=== PATIENT | male | born 1935 | race Caucasian/White ===

== ENCOUNTER 2017-04-05 16:18 | Outpatient (CLI) | payer MEDICARE, OTHER ==
--- NOTE | 2017-04-06 15:52 | MRI Report ---
EXAMS: MRI BRAIN WITHOUT CONTRAST. MRA BRAIN WITHOUT CONTRAST. EXAM DATE: 04/05/2017 04:45 PM. CLINICAL HISTORY: 81-year-old lesion transient visual loss of the left thigh as well as paresthesias of the skin. Evaluate for intracranial pathology. COMPARISON: None. TECHNIQUE: MRI: Multiplanar, multisequence T1-weighted and fluid-sensitive MRI sequences of the brain were performed. Sequences optimized for routine evaluation. Other: None. Post-processing: None. IV C ontrast: None. MRA: Multiplanar, multisequence T1-weighted and fluid-sensitive MRA sequences of the brain were perfo rmed. Other: None. Post-processing: Multiplanar 3D MIP reconstructions. IV Contrast: None. FINDINGS: MRI: Brain Volume: Normal for age. Parenchyma/Dura: No acute parenchymal hemorrhage, mass, or midline shift. [id number] bilateral areas of T2/FLAIR signal hyperintensity seen. There is pulsation artifact on FLAIR sequence seen with in the FLAIR sequence involving the right frontal lobe (series 701, images 17 through 21). There is a re curvilinear area of T2 high signal hyperintensity within the left mid cranial fossa and right infe rior frontal lobe are artifactual. There are no true areas of restricted diffusion seen to suggest ac [place] infarct. No areas of prior hemorrhage. Ventricles/Cisterns: No hydrocephalus. No abnormal extra-axial fluid collection or hemorrhage. Cister ns are patent. Changes of bilateral lens replacement. Minimal mucosal thickening of the maxillary sin uses with mild to moderate mucosal thickening of the ethmoid air cells. Mastoid air cells and middle ear cavities are clear. Orbits: Symmetric and unremarkable. Sella Turcica: The pituitary gland, cavernous sinuses, suprasellar cistern and optic chiasm are unrem arkable. IAC: Symmetric and unremarkable. Vasculature: Normal signal flow void is seen in the major arterial structures at the skull base. Sinuses: No acute appearing sinus disease. Bones: No focal pathologic appearing marrow signal changes. Other: None. MRA: RIGHT Internal Carotid (ICA): No aneurysm, stenosis or anomaly. Middle Cerebral (MCA): No aneurysm, stenosis or anomaly. Anterior Cerebral (CAESAR): No aneurysm, stenosis or anomaly. Posterior Cerebral (ORE DIGGER): No aneurysm, stenosis or anomaly. Posterior Communicating (P-COM): No aneurysm, stenosis or anomaly. Vertebral: No aneurysm, stenosis or anomaly in the visualized upper vertebral artery. LEFT Internal Carotid (ICA): No aneurysm, stenosis or anomaly. Middle Cerebral (MCA): No aneurysm, stenosis or anomaly. Anterior Cerebral (CAESAR): No aneurysm, stenosis or anomaly. Posterior Cerebral (ORE DIGGER): No aneurysm, stenosis or anomaly. Posterior Communicating (P-COM): No aneurysm, stenosis or anomaly. Vertebral: No aneurysm, stenosis or anomaly in the visualized upper vertebral artery. MIDLINE Anterior Communicating (A-COM): No aneurysm, stenosis or anomaly. Basilar artery: No aneurysm, stenosis or anomaly. Other: None. IMPRESSION: MRI HEAD: 1.No acute infarct, intracranial hemorrhage, mass, hydrocephalus, midline shift, or abnormal postcont rast enhancement. 2. Mild to moderate white matter changes that while nonspecific most likely represents sequela of chr onic small vessel ischemic disease. MRA HEAD: 1.No large vessel occlusion. 2. No intracranial aneurysm, stenosis, or vascular anomaly. [facility] Referring Provider Line: [phone] SITE ID: [id number]
--- NOTE | 2017-04-06 15:52 | MRI Report ---
EXAMS: MRI BRAIN WITHOUT CONTRAST. MRA BRAIN WITHOUT CONTRAST. EXAM DATE: 04/05/2017 04:45 PM. CLINICAL HISTORY: 81-year-old lesion transient visual loss of the left thigh as well as paresthesias of the skin. Evaluate for intracranial pathology. COMPARISON: None. TECHNIQUE: MRI: Multiplanar, multisequence T1-weighted and fluid-sensitive MRI sequences of the brain were performed. Sequences optimized for routine evaluation. Other: None. Post-processing: None. IV C ontrast: None. MRA: Multiplanar, multisequence T1-weighted and fluid-sensitive MRA sequences of the brain were perfo rmed. Other: None. Post-processing: Multiplanar 3D MIP reconstructions. IV Contrast: None. FINDINGS: MRI: Brain Volume: Normal for age. Parenchyma/Dura: No acute parenchymal hemorrhage, mass, or midline shift. Vjln-xk-gdxebqzk bilateral areas of T2/FLAIR signal hyperintensity seen. There is pulsation artifact on FLAIR sequence seen with in the FLAIR sequence involving the right frontal lobe (series 701, images 17 through 21). There is a re curvilinear area of T2 high signal hyperintensity within the left mid cranial fossa and right infe rior frontal lobe are artifactual. There are no true areas of restricted diffusion seen to suggest ac [place] infarct. No areas of prior hemorrhage. Ventricles/Cisterns: No hydrocephalus. No abnormal extra-axial fluid collection or hemorrhage. Cister ns are patent. Changes of bilateral lens replacement. Minimal mucosal thickening of the maxillary sin uses with mild to moderate mucosal thickening of the ethmoid air cells. Mastoid air cells and middle ear cavities are clear. Orbits: Symmetric and unremarkable. Sella Turcica: The pituitary gland, cavernous sinuses, suprasellar cistern and optic chiasm are unrem arkable. IAC: Symmetric and unremarkable. Vasculature: Normal signal flow void is seen in the major arterial structures at the skull base. Sinuses: No acute appearing sinus disease. Bones: No focal pathologic appearing marrow signal changes. Other: None. MRA: RIGHT Internal Carotid (ICA): No aneurysm, stenosis or anomaly. Middle Cerebral (MCA): No aneurysm, stenosis or anomaly. Anterior Cerebral (CAESAR): No aneurysm, stenosis or anomaly. Posterior Cerebral ([employer]ICATION): No aneurysm, stenosis or anomaly. Posterior Communicating (P-COM): No aneurysm, stenosis or anomaly. Vertebral: No aneurysm, stenosis or anomaly in the visualized upper vertebral artery. LEFT Internal Carotid (ICA): No aneurysm, stenosis or anomaly. Middle Cerebral (MCA): No aneurysm, stenosis or anomaly. Anterior Cerebral (CAESAR): No aneurysm, stenosis or anomaly. Posterior Cerebral (SU[employer]IN[employer] FABRICATION): No aneurysm, stenosis or anomaly. Posterior Communicating (P-COM): No aneurysm, stenosis or anomaly. Vertebral: No aneurysm, stenosis or anomaly in the visualized upper vertebral artery. MIDLINE Anterior Communicating (A-COM): No aneurysm, stenosis or anomaly. Basilar artery: No aneurysm, stenosis or anomaly. Other: None. IMPRESSION: MRI HEAD: 1.No acute infarct, intracranial hemorrhage, mass, hydrocephalus, midline shift, or abnormal postcont rast enhancement. 2. Mild to moderate white matter changes that while nonspecific most likely represents sequela of chr onic small vessel ischemic disease. MRA HEAD: 1.No large vessel occlusion. 2. No intracranial aneurysm, stenosis, or vascular anomaly. [facility] Referring Provider Line: [phone] SITE ID: [id number]
--- NOTE | 2017-04-06 15:59 | MRI Report ---
EXAM: MR ANGIOGRAM NECK EXAM DATE: 04/05/2017 05:40 PM. CLINICAL HISTORY: 81-year-old with transient left eye visual loss and paresthesias of the skin COMPARISON: Same day MRA head and MR brain 04/05/2017. TECHNIQUE: Multiplanar, multisequence MRA sequences of the neck were performed. Other: None. Post-pro cessing: Multiplanar 3D MIP reconstructions. IV Contrast: None. Evaluation of arterial stenosis is b ased on a NASCET method of measurement. FINDINGS: RIGHT Common Carotid: The origin of the right common carotid artery is not fully evaluated. The remainder o f the right common card artery appears normal. Carotid bulb: Atherosclerotic calcifications. No hemodynamically seen as can stenosis. Internal Carotid: Patent. No dissection or significant stenosis. External Carotid: Patent. No dissection or significant stenosis. Vertebral: The origin of the right vertebral artery is not fully evaluated. The remainder of the vert ebral artery appears normal. No dissection or significant stenosis. LEFT Common Carotid: The origin of the left common carotid artery is not fully evaluated. The remainder of the left common card artery appears normal. Carotid bulb: Atherosclerotic calcifications. No hemodynamically seen as can stenosis. Internal Carotid: Patent. No dissection or significant stenosis. External Carotid: Patent. No dissection or significant stenosis. Vertebral: The origin of the left vertebral artery is not fully evaluated. The remainder of the verte bral artery appears normal. No dissection or significant stenosis. Intracranial Circulation: No stenoses or aneurysms in the visualized portion of the intracranial vasc ulature. Other: The soft tissues, bones, and lung apices are unremarkable. IMPRESSION: 1. The origin of the common carotid arteries and vertebral arteries are not well evaluated on the cur rent study. 2. Otherwise the vasculature of the neck demonstrates no significant stenosis or dissection. [facility] Referring Provider Line: [phone] SITE ID: [id number]
== END 2017-04-05 16:19 | disposition home or self-care (01) ==
LOC: DI 16:18
PROVIDERS: ATTEND Specialist
DX: R20.0 Anesthesia of skin (principal); R20.2 Paresthesia of skin; H53.122 Transient visual loss, left eye
CPT/HCPCS: 70544; 70547; 70551

== ENCOUNTER 2017-07-01 14:20 | Outpatient (CLI) | payer MEDICARE, OTHER ==
--- NOTE | 2017-07-01 18:57 | XRAY Report ---
TWO VIEW CHEST: 07/01/2017 CLINICAL INDICATION: Cough. COMPARISON: 09/21/2015 FINDINGS: Frontal and lateral views of the chest demonstrate a normal cardiac silhouette. The lungs are clear. No effusion or pneumothorax is present. IMPRESSION: NORMAL CHEST, UNCHANGED. TD: 07/01/2017 18:55
== END 2017-07-01 14:21 | disposition home or self-care (01) ==
LOC: DI 14:20
PROVIDERS: ATTEND Internal Medicine
DX: R05 Cough (principal); R06.02 Shortness of breath
CPT/HCPCS: 71046

== ENCOUNTER 2018-06-07 01:32 | Outpatient (CLI) | payer MEDICARE, OTHER | END 2018-06-07 01:33 | disposition critical access hospital (66) | LOC: EMS 01:32 | PROVIDERS: ATTEND Surgery | DX: R10.9 Unspecified abdominal pain (principal); R11.0 Nausea; R61 Generalized hyperhidrosis | CPT/HCPCS: A0425; A0429 ==

== ENCOUNTER 2018-06-07 02:07 | Emergency (ER) | payer MEDICARE, OTHER ==
--- NOTE | 2018-06-07 02:56 | ED Physician Documentation ---
PD HPI ABD PAIN - Stated complaint Stated Complaint: FLANK PAIN - Chief complaint Chief Complaint: Abd Pain - History obtained from History obtained from: Patient - History of Present Illness Timing - onset: Enter time (22:00), Today Timing - details: Abrupt onset, Waxing and waning Pain level max: 10 Pain level now: 4 Quality: Pain Location: RLQ Radiation: Right flank Improved by: Other (no ameliorating factors) Worsened by: Other (no apparent exacerbating factors) Associated symptoms: Nausea, Vomiting. No: Fever, Diarrhea, Constipation Similar symptoms before: Has not had sx before Recently seen: Not recently seen Review of Systems Constitutional: denies: Fever Cardiac: reports: Reviewed and negative Respiratory: reports: Reviewed and negative GI: reports: Abdominal Pain, Nausea, Vomiting. denies: Constipation, Diarrhea : denies: Dysuria, Frequency, Hematuria PD PAST MEDICAL HISTORY - Past Medical History Cardiovascular: Hypertension - Past Surgical History Past Surgical History: Yes - Present Medications Home Medications: Ambulatory Orders Medication Instructions Recorded Confirmed Aspirin 06/07/18 Furosemide [Lasix] 06/07/18 Lisinopril 06/07/18 Oxycodone HCl/Acetaminophen 1 - 2 each PO Q6H PRN #14 tablet 06/07/18 [Percocet 5-325 mg Tablet] Ropinirole HCl 06/07/18 Simvastatin 06/07/18 Tamsulosin [Flomax] 0.4 mg PO DAILY #10 capsule 06/07/18 - Allergies Allergies/Adverse Reactions: Allergies Allergy/AdvReac Type Severity Reaction Status Date / Time Penicillins AdvReac Anaphylaxis Verified 06/07/18 02:19 Tetracyclines AdvReac Anaphylaxis Verified 06/07/18 02:19 - Social History Does the pt smoke?: No Smoking Status: Never smoker PD ED PE NORMAL - Vitals Vital signs reviewed: Yes - General General: Alert and oriented X 3, No acute distress, Well developed/nourished - HEENT HEENT: Moist mucous membranes - Cardiac Cardiac: RRR, No murmur - Respiratory Respiratory: No respiratory distress, Clear bilaterally - Abdomen Abdomen: Soft, Non tender, Non distended - Back Back: No CVA TTP - Derm Derm: Normal color, Warm and dry, No rash Results - Vitals Vitals: Oxygen O2 Source Room air - Labs Labs: Laboratory Tests 06/07/18 06/07/18 06/07/18 03:18 03:23 03:23 WBC 8.0 RBC 5.09 Hgb 15.2 Hct 45.7 MCV 89.8 MCH 29.9 MCHC 33.3 RDW 13.9 Plt Count 144 MPV 8.4 Neut # (Auto) 6.1 Lymph # (Auto) 1.2 L Edgar # (Auto) 0.6 Eos # (Auto) 0.0 Baso # (Auto) 0.1 Absolute Nucleated RBC 0.00 Nucleated RBC % 0.0 Sodium 142 Potassium 4.0 Chloride 106 Carbon Dioxide 27 Anion Gap 9.0 BUN 27 H Creatinine 1.1 Estimated GFR (MDRD) 64 L Glucose 122 H Calcium 9.2 Total Bilirubin 0.9 AST 24 ALT 23 Alkaline Phosphatase 75 Total Protein 6.7 Albumin 4.1 Globulin 2.6 Albumin/Globulin Ratio 1.6 Lipase 32 Urine Color YELLOW Urine Clarity CLEAR Urine pH 7.5 Ur Specific [place] 1.010 Urine Protein NEGATIVE Urine Glucose (UA) NEGATIVE Urine Ketones NEGATIVE Urine Occult Blood MODERATE H Urine Nitrite NEGATIVE Urine Bilirubin NEGATIVE Urine Urobilinogen 0.2 (NORMAL) Ur Leukocyte Esterase NEGATIVE Urine RBC 11-25 H Urine WBC 0-3 Ur Squamous Epith Cells NONE SEEN Urine Bacteria None Seen Ur Microscopic Review INDICATED Urine Culture Comments NOT INDICATED - Rads (name of study) CT A/P Radiology: Prelim report reviewed, See rad report PD MEDICAL DECISION MAKING - ED course Complexity details: reviewed results, re-evaluated patient, considered differential, d/w patient Departure - Departure Disposition: 01 Home, Self Care Clinical Impression: Renal colic Condition: Good Instructions: ED Stone Renal W Colic Follow-Up: ASHLEY WORKMAN MD [Primary Care Provider] - Prescriptions: Oxycodone HCl/Acetaminophen [Percocet 5-325 mg Tablet] 1 - 2 each PO Q6H PRN #14 tablet PRN Reason: pain Tamsulosin [Flomax] 0.4 mg PO DAILY #10 capsule Discharge Date/Time: 06/07/18 05:08
[2018-06-07 03:31] LABS: BASOPHILS # (AUTO) 0.1 10^3/uL (0.0-0.1); BASOPHILS % (AUTO) 0.9 %; EOSINOPHILS % (AUTO) 0.6 %; HGB - HEMOGLOBIN 15.2 g/dL (14.0-18.0); LYMPHOCYTES # (AUTO) 1.2 10^3/uL (1.5-3.5); LYMPHOCYTES % (AUTO) 15.5 %; MEAN CORPUSCULAR HEMOGLOBIN 29.9 pg (27.0-31.0); MEAN CORPUSCULAR HGB CONC 33.3 g/dL (32.0-36.0); MEAN CORPUSCULAR VOLUME 89.8 fL (80.0-94.0); MEAN PLATELET VOLUME 8.4 fL (7.4-11.4); MONOCYTES # (AUTO) 0.6 10^3/uL (0.0-1.0); NEUTROPHILS # (AUTO) 6.1 10^3/uL (1.5-6.6); PLT - PLATELET COUNT 144 10^3/uL (130-450); RED BLOOD COUNT 5.09 10^6/uL (4.70-6.10); RED CELL DISTRIBUTION WIDTH 13.9 % (12.0-15.0)
[2018-06-07 03:41] LABS: ALBUMIN 4.1 g/dL (3.2-5.5); ALBUMIN/GLOBULIN RATIO 1.6 (1.0-2.2); BILIRUBIN,TOTAL 0.9 mg/dL (0.2-1.0); CALCIUM 9.2 mg/dL (8.5-10.3); CREATININE 1.1 mg/dL (0.6-1.2); TOTAL PROTEIN 6.7 g/dL (6.7-8.2)
[2018-06-07 03:47] LABS: BILIRUBIN,URINE NEGATIVE (NEGATIVE); GLUCOSE, URINE (UA) NEGATIVE (NEGATIVE); KETONES,URINE (UA) NEGATIVE (NEGATIVE); LEUKOCYTE ESTERASE, URINE NEGATIVE (NEGATIVE); NITRITE,URINE NEGATIVE (NEGATIVE); OCCULT BLOOD,URINE MODERATE (NEGATIVE); PH,URINE 7.5 PH (5.0-7.5); PROTEIN,URINE NEGATIVE (NEGATIVE); UROBILINOGEN,URINE 0.2 (NORMAL) E.U./dL (NORMAL)
[2018-06-07 03:55] LABS: CLARITY,URINE CLEAR (CLEAR)
[2018-06-07 04:03] LABS: BACTERIA,URINE None Seen /HPF (None Seen); SQUAMOUS EPITHELIAL CELL,UR NONE SEEN (<= Few)
--- NOTE | 2018-06-07 04:14 | CT Report ---
Reason: right flank pain Procedure Date: 06/07/2018 Accession Number: [id number] / [id number] Procedure: CT - Abdomen/Pelvis WO CPT Code: FULL RESULT: EXAM: CT ABDOMEN AND PELVIS (CT KUB) EXAM DATE: 06/07/2018 03:47 AM. CLINICAL HISTORY: Severe bout of pain at 10 PM and 1 AM. COMPARISONS: None. TECHNIQUE: Routine axial helical CT imaging was performed through the abdomen and pelvis without IV contrast. Reconstructions: Coronal and sagittal. In accordance with CT protocol optimization, one or more of the following dose reduction techniques were utilized for this exam: automated exposure control, adjustment of mA and/or KV based on patient size, or use of iterative reconstructive technique. FINDINGS: Right Kidney/Ureter: Moderate right-sided hydroureteronephrosis noted, secondary to an obstructing 6.4 x 4.2 x 6.2 mm stone at the right distal ureter, just beyond the iliac crossing. The stone measures 853 Hounsfield units in density (image 123 series 3). No additional intrarenal stones noted within the right kidney. There is a small dystrophic parenchymal calcification at the site of renal parenchymal scarring within the right lower kidney (image 67 series 3). Moderate left-sided perinephric and periureteric fat stranding, secondary to the hydronephrosis noted. Left Kidney/Ureter: There is a punctate left lower kidney intrarenal stone. There is no left-sided hydronephrosis. There is a heterogeneous somewhat tubular/oval abnormality arising from the upper pole of the left kidney, with coarse peripheral calcification. This measures 18 x 7 mm (image 68 series 5). This is difficult to fully characterize on this exam. Lobulated parenchymal configuration of the left kidney may be secondary to lobulation or multifocal parenchymal scarring. Abdominal Solid Organs: Small cyst within the posterior portion of segment 2 of the liver, measuring 2.9 x 1.7 cm (image 28 series 3). Abdominal parenchymal organs are without significant abnormality within the confines of a noncontrast exam. Bowel: No evidence of bowel obstruction. Appendix: Normal. Lymph Nodes: No definite pathologic lymphadenopathy. Fluid: No significant ascites. Vasculature: Normal caliber aorta. Mild to moderate calcific aortic atherosclerosis. Pelvis: No bladder stones. Prior prostatectomy and seminal vesicle resection. Bones: No definite suspicious bony lesions demonstrated. There is moderate multilevel degenerative change within the spine. Lower Chest: No significant lung base consolidation or effusion. IMPRESSION: 1. Moderate right-sided hydroureteronephrosis due to an obstructing 6.4 x 6.3 x 4.2 mm right distal ureteral stone, just beyond the iliac crossing. This stone is 853 Hounsfield units in density. 2. No additional right-sided intrarenal stones. There is a punctate left lower kidney intrarenal stone. No left hydronephrosis. 3. Prior prostatectomy and seminal vesicle resection. [facility]
[2018-06-07] MEDS ORDERED: TAMSULOSIN 0.4 MG CAPSULE PO STA (04:44)
[2018-06-07] MEDS ORDERED: oxyCODONE/ACET 5/325 Prepack 4 PO STA (04:44)
[2018-06-07 05:08] VITALS: BP 162/84
== END 2018-06-07 05:08 | disposition home or self-care (01) ==
LOC: EDUNIT# → ED 02:07
DX: I10 Essential (primary) hypertension (principal); N13.2 Hydronephrosis with renal and ureteral calculous obstruction
CPT/HCPCS: 36415; 74176; 80053; 81001; 83690; 85025; 99283; 99284; A9270; 81003; 87086

== ENCOUNTER 2019-04-02 10:10 | Outpatient (CLI) | payer MEDICARE, OTHER ==
--- NOTE | 2019-04-02 11:11 | Ultrasound Report ---
Reason: HX OF PROSTATECTOMY, FREQUENCY AND INCONTINENCE Procedure Date: 04/02/2019 Accession Number: [id number] / [id number] Procedure: US - Bladder CPT Code: Final Report FULL RESULT: EXAM: PELVIS ULTRASOUND, LIMITED EXAM DATE: 04/02/2019 10:48 AM. CLINICAL HISTORY: HX OF PROSTATECTOMY, FREQUENCY AND INCONTINENCE. COMPARISON: None. TECHNIQUE: Real-time scanning was performed with static images obtained. FINDINGS: Bilateral ureteral jets are identified Prevoid bladder: 7 x 4.5 x 5.9 cm 98 cc. Unremarkable. No wall abnormality. Post void bladder 0 cc IMPRESSION: Prevoid bladder 98 cc. Postvoid bladder empty [facility]
== END 2019-04-02 10:11 | disposition home or self-care (01) ==
LOC: DI 10:10
PROVIDERS: ATTEND Family Medicine
DX: R35.0 Frequency of micturition (principal); R32 Unspecified urinary incontinence; Z90.79 Acquired absence of other genital organ(s)
CPT/HCPCS: 76857

== ENCOUNTER 2020-02-10 06:49 | Outpatient (CLI) | payer MEDICARE, OTHER ==
--- NOTE | 2020-02-10 10:20 | Ultrasound Report ---
PROCEDURE: Abdomen Complete INDICATIONS: RT UPPER QUAD PAIN TECHNIQUE: Real-time scanning was performed of the abdominal and retroperitoneal organs, with image documentatio n. COMPARISON: None. FINDINGS: Liver: The liver has no intrahepatic biliary ductal dilatation or mass. Liver cysts seen on prior CT are not seen on today's exam. Gallbladder/biliary: The gallbladder is normal. No gallbladder wall thickening or pericholecystic flu id. The gallbladder is mildly contracted without stones. Common bile duct is normal measuring 5.1 mm. The distal common bile duct is not seen. Pancreas: The pancreas is not well-seen due to overlying bowel gas. Spleen: Spleen is normal in size and homogeneous in echotexture. Kidneys: Kidneys are normal in size and echotexture. Right kidney measures 10.1 cm long; left kidne y measures 10.7 cm long. No hydronephrosis or nephrolithiasis. No solid masses. Aorta: Visualized aorta is normal in caliber at less than 3 cm. There is calcified plaque throughout . Iliacs: Proximal common iliac arteries are normal in caliber at less than 2.5 cm. IVC: Intrahepatic inferior vena cava is patent. IMPRESSION: 1. No acute ultrasound abnormality in the abdomen. 2. The pancreas is not well seen. Reviewed by: Danny Churchill on 02/10/2020 10:19 AM [facility] Approved by: Danny Churchill on 02/10/2020 10:19 AM [facility] Station ID: [id number]
== END 2020-02-10 06:50 | disposition home or self-care (01) ==
LOC: DI 06:49
PROVIDERS: ATTEND Physician Assistant
DX: R10.9 Unspecified abdominal pain (principal)

== ENCOUNTER 2020-02-16 08:40 | Outpatient (CLI) | payer MEDICARE, OTHER ==
[2020-02-16] MEDS ORDERED: SINCALIDE 5 MCG VIAL ONE (10:38)
--- NOTE | 2020-02-16 13:06 | Nuclear Medicine Report ---
PROCEDURE: Hepatobiliary HIDA w/ Rx INDICATIONS: NORMAL ABD US RADIOPHARMACEUTICAL: 4.7 mCi Tc-99m mebrofenin i.v. and 1.91 ?g sincalide i.v. TECHNIQUE: Following intravenous administration of Tc-99m mebrofenin, sequential anterior abdominal images were obtained through 120 minutes. To evaluate the contractile response of the gallbladder in response to Cholecystokinin (CCK), 1.91 microgram sincalide (0.02 ?g/kg) was administered by slow in travenous infusion approximately 60 minutes after the administration of the radiopharmaceutical. Seq uential imaging was continued for 30 minutes after the start of CCK infusion. Gallbladder ejection f raction was calculated. COMPARISON: None. FINDINGS: Biliary scan: There is normal tracer uptake and excretion by the liver. There is normal visualizati on of the intrahepatic ducts, common bile duct, and gallbladder. There is normal tracer transit into the duodenum. CCK stimulation: There is normal contractile response of the gallbladder to CCK infusion. The calcu lated gallbladder ejection fraction is 99%; normal values are above 35%. IMPRESSION: 1. Normal biliary imaging study. 2. Normal contractile response of gallbladder to CCK infusion.. Reviewed by: Mo Thomas MD on 02/16/2020 1:05 PM PST Approved by: Mo Thomas MD on 02/16/2020 1:05 PM PST Station ID: [id number]
[2020-02-17] MEDS ORDERED: SODIUM CHLORIDE 0.9% IV ONE (10:11)
[2020-02-17] MEDS ORDERED: SINCALIDE IV ONE (10:11)
== END 2020-02-16 08:41 | disposition home or self-care (01) ==
LOC: DI 08:40
PROVIDERS: ATTEND Physician Assistant
DX: R10.11 Right upper quadrant pain (principal)
CPT/HCPCS: 78227; J7040

== ENCOUNTER 2020-02-18 13:01 | Outpatient (CLI) | payer MEDICARE, OTHER ==
--- NOTE | 2020-02-18 16:36 | XRAY Report ---
PROCEDURE: Ribs 3 View BILAT INDICATIONS: FALL/ RIGHT LOWER ANTERIOR RIB PAIN TECHNIQUE: 3 views of the right ribs were acquired. COMPARISON: Chest x-ray 07/01/2017 FINDINGS: Surgical changes and devices: None. Bones and chest wall: There is nondisplaced fracture of the lateral left eighth rib. No suspicious gabriela ny lesions. Overlying soft tissues appear unremarkable. Lungs and pleura: The visualized lung appears clear. No pleural effusions or pneumothorax are visib le. IMPRESSION: Nondisplaced lateral left eighth rib fracture. Reviewed by: Luz Newman MD on 02/18/2020 4:35 PM PST Approved by: Luz Newman MD on 02/18/2020 4:35 PM PST Station ID: [id number]
== END 2020-02-18 13:02 | disposition home or self-care (01) ==
LOC: DI 13:01
PROVIDERS: ATTEND Physician Assistant
DX: S22.32XA Fracture of one rib, left side, initial encounter for closed fracture (principal); W19.XXXA Unspecified fall, initial encounter

== ENCOUNTER 2020-03-08 14:13 | Outpatient (CLI) | payer MEDICARE, OTHER ==
[2020-03-08] MEDS ORDERED: IOVERSOL 320 50 ML VIAL ONE (14:27)
[2020-03-08] MEDS ORDERED: IOVERSOL 320 100 ML VIAL IVP ONE ×2 (14:27→15:50)
[2020-03-08] MEDS ORDERED: IOVERSOL 320 50 ML VIAL PO ONE (15:51)
--- NOTE | 2020-03-09 13:58 | CT Report ---
PROCEDURE: Abdomen/Pelvis W INDICATIONS: RUQ PAIN CONTRAST: IV CONTRAST: Optiray 320 ml: 100 PO CONTRAST: Optiray 320 ml50 TECHNIQUE: After the administration of intravenous contrast, 5 mm thick sections acquired from the diaphragms to the symphysis. 5 mm thick coronal and sagittal reformats were acquired. For radiation dose reducti on, the following was used: automated exposure control, adjustment of mA and/or kV according to pritesh ent size. COMPARISON: Ultrasound abdomen, 02/10/2020. CT abdomen and pelvis with contrast, 06/07/2018. FINDINGS: Image quality: Excellent. ABDOMEN: Lung bases: Lung bases are clear. Heart size is normal. Moderate to severe coronary artery atheros clerosis. Solid organs: There is a 2.9 x 1.6 cm cyst in segment 2 of liver. There is normal in size. Spleen is normal in size and enhancement. Gallbladder is normal. Biliary system is non dilated. Pancreas en hances normally. No adrenal nodules. Kidneys demonstrate normal size and symmetric enhancement, wit hout hydronephrosis. There is a 3 x 7 mm nonobstructing stone in right kidney, and a 2 x 5 mm stone in the superior pole of the left kidney. Bilateral renal cortical thinning. Peritoneum and bowel: There is a moderate amount of stool in colon. Bowel loops demonstrate normal wa ll thickness and caliber. No free fluid or air. Nodes and vessels: No retroperitoneal or mesenteric adenopathy by size criteria. Aorta and inferior vena cava are normal in size. Miscellaneous: No ventral hernias. PELVIS: Genitourinary: Bladder wall thickness is normal. Prostate is surgically absent. Miscellaneous: No inguinal hernias or adenopathy. Bones: No suspicious bony lesions. No vertebral body compression fractures. Degenerative changes i n lower thoracic and lumbar spine. IMPRESSION: 1. A cause for right upper quadrant pain is not identified. 2. Normal CT appearance of gallbladder. No radiopaque gallstones. 3. Nonobstructing renal stones. 4. Moderate amount of stool in colon. Reviewed by: Samir Poole MD on 03/09/2020 1:57 PM PST Approved by: Samir Poole MD on 03/09/2020 1:57 PM PST Station ID: [id number]
== END 2020-03-08 14:14 | disposition home or self-care (01) ==
LOC: DI 14:13
PROVIDERS: ATTEND Physician Assistant
DX: Z01.818 Encounter for other preprocedural examination (principal); N20.0 Calculus of kidney
CPT/HCPCS: 74177; Q9967; 36415; 82565; 84520

== ENCOUNTER 2020-03-08 14:23 | Outpatient (CLI) | payer MEDICARE, OTHER ==
[2020-03-08 15:04] LABS: CREATININE 1.1 mg/dL (0.6-1.2)
== END 2020-03-08 14:24 | disposition home or self-care (01) ==
LOC: LAB 14:23
PROVIDERS: ATTEND Physician Assistant
DX: Z01.818 Encounter for other preprocedural examination (principal)
CPT/HCPCS: 36415; 82565; 84520

== ENCOUNTER 2021-12-26 08:00 | Outpatient (CLI) | payer MEDICARE, OTHER ==
--- NOTE | 2021-12-26 16:14 | XRAY Report ---
PROCEDURE: Shoulder 3 View LT INDICATIONS: LEFT SHOULDER PAIN TECHNIQUE: 4 views of the shoulder were acquired. COMPARISON: None. FINDINGS: Bones: No acute fractures or dislocations. No suspicious bony lesions. Visualized ribs appear inta ct. Moderate degenerative changes at the acromioclavicular joint. Mild glenohumeral degenerative gemma nges. Soft tissues: No suspicious soft tissue calcifications. 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 2.No acute osseous abnormality. If symptoms persist or there is continued clinical concern, further e valuation with MRI or CT may be helpful. Reviewed by: Rosalio Calderon MD on 12/26/2021 4:13 PM PDT Approved by: Rosalio Calderon MD on 12/26/2021 4:13 PM PDT Station ID: [id number]
== END 2021-12-26 23:59 | disposition home or self-care (01) ==
LOC: DI.WOS 08:00
PROVIDERS: ATTEND Orthopaedic Surgery
DX: M19.012 Primary osteoarthritis, left shoulder (principal)

== ENCOUNTER 2021-12-27 13:57 | Outpatient (CLI) | payer MEDICARE, OTHER ==
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
== END 2021-12-27 13:58 | disposition home or self-care (01) ==
LOC: DI 13:57
PROVIDERS: ATTEND Physician Assistant
DX: R07.89 Other chest pain (principal)

== ENCOUNTER 2022-03-06 15:36 | Emergency (ER) | payer MEDICARE, OTHER ==
--- OUTSIDE RECORDS SUMMARY | 2022-03-06 16:38 | EXTERNAL MEDICAL SUMMARY RPT | Continuity of Care Document ---
:1935 Author Organization [facility] Address [address] [place] [address] Phone Care Team Providers Name Role Phone Yonas Rios Unavailable Unavailable Allergies No information. Encounters No information. Functional Status No information. Immunizations No information. Medications date description facility 2022-01-22 00:00 [facility] Problems No information. Procedures No information. Results/Labs test date author facility value unit interpret ation Result panel 1 (unknown) (no (unknown) (unknown) (no value) (units (unk nown) date) unknown) (unknown) (no (unknown) (unknown) 'to a point' (units (u nknown) date) ANAPHYLAXIS unknown) (unknown) (no (unknown) (unknown) 01/22/22 (units (unkno wn) date) unknown) (unknown) (no (unknown) (unknown) ANAPHYLAXIS (units (un known) date) unknown) (unknown) (no (unknown) (unknown) Accompanied by: (units (unknown) date) Spouse unknown) (unknown) (no (unknown) (unknown) Age/Sex: 86 / M (units (unknown) date) Date of Service: unknown) (unknown) (no (unknown) (unknown) Allergies (units (unkn own) date) unknown) (unknown) (no (unknown) (unknown) JIM Lynn (units ( unknown) date) [id number] unknown) (unknown) (no (unknown) (unknown) Attending Dr: (units ( unknown) date) Que Pope D.O. 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 unknown) (unknown) (no (unknown) (unknown) Documented By: (units (unknown) date) Que Pope D.O. unknown) 01/22/22 1356 (unknown) (no (unknown) (unknown) Draft (units (unkno wn) date) unknown) (unknown) (no (unknown) (unknown) Dyslipidemia (units (u nknown) date) unknown) (unknown) (no (unknown) (unknown) Facet (units (unkno wn) date) arthropathy, unknown) lumbar (unknown) (no (unknown) (unknown) Family History (units (unknown) date) (Reviewed 09/25/21 unknown) @ 16:16 by Que Pope DO) (unknown) (no (unknown) (unknown) Father (units (unknown) date) Aorta aneurysm unknown) (unknown) (no (unknown) (unknown) Global amnesia (units (unknown) date) unknown) (unknown) (no (unknown) (unknown) H/O vein (units (unkno wn) date) stripping unknown) (unknown) (no (unknown) (unknown) Herniated nucleus (units (unknown) date) pulposus, L3-4 unknown) left (unknown) (no (unknown) (unknown) Herniated nucleus (units (unknown) date) pulposus, L5-S1 unknown) (unknown) (no (unknown) (unknown) History of (units (unk nown) date) prostate surgery unknown) (unknown) (no (unknown) (unknown) Hypertension (units (u nknown) date) unknown) (unknown) (no (unknown) (unknown) 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 (unknown) (no (unknown) (unknown) Intake Clinical (units (unknown) date) Staff unknown) (unknown) (no (unknown) (unknown) Intake performed (units (unknown) date) by: Christine Becerril unknown) (unknown) (no (unknown) (unknown) Intake (units (unkno wn) date) unknown) (unknown) (no (unknown) (unknown) Loc: PAIN (units (unkn own) date) unknown) (unknown) (no (unknown) (unknown) Lumbosacral (units (un known) date) spondylosis unknown) (unknown) (no (unknown) (unknown) [id number] (units (unk nown) date) unknown) (unknown) (no (unknown) (unknown) Medical History (units (unknown) date) (Reviewed 09/25/21 unknown) @ 16:16 by Que Pope DO) (unknown) (no (unknown) (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 unknown) (unknown) (no (unknown) (unknown) Multilevel spinal (units (unknown) date) stenosis unknown) (unknown) (no (unknown) (unknown) Obstructive sleep (units (unknown) date) apnea of adult unknown) (unknown) (no (unknown) (unknown) PFSH (units (unkno wn) date) unknown) (unknown) (no (unknown) (unknown) Pain Visit (units (unk nown) date) unknown) (unknown) (no (unknown) (unknown) Patient: Linh (units (unknown) date) Reginald Ye MR#: unknown) (unknown) (no (unknown) (unknown) Penicillins (units (un known) date) [PENICILLINS] unknown) Adverse Reaction (Severe, Verified 01/22/22 13:56) (unknown) (no (unknown) (unknown) Prostate cancer (units (unknown) date) unknown) (unknown) (no (unknown) (unknown) Reason For Visit (units (unknown) date) unknown) (unknown) (no (unknown) (unknown) Resprionics (units (un known) date) Remstar CPAP #1 ea unknown) 07/07/18 [History Confirmed 01/22/22] (unknown) (no (unknown) (unknown) Restless legs (units ( unknown) date) syndrome (RLS) unknown) (unknown) (no (unknown) (unknown) Signed By: (units (unk nown) date) unknown) (unknown) (no (unknown) (unknown) Smoking Status: (units (unknown) date) Former smoker unknown) (unknown) (no (unknown) (unknown) Social History (units (unknown) date) unknown) (unknown) (no (unknown) (unknown) Surgical History (units (unknown) date) (Reviewed 09/25/21 unknown) @ 16:16 by Que Pope DO) (unknown) (no (unknown) (unknown) TIA (transient (units (unknown) date) ischemic attack) unknown) (unknown) (no (unknown) (unknown) [facility] ([facility]) [facility] unknown) (unknown) (no (unknown) (unknown) This note may (units ( unknown) date) have been all or unknown) partially generated using voice recognition (unknown) (no (unknown) (unknown) Tobacco + (units (unkn own) date) Substance Use unknown) (unknown) (no (unknown) (unknown) Tobacco Status (units (unknown) date) unknown) (unknown) (no (unknown) (unknown) Visit Reasons: FU (units (unknown) date) NAOMI, POST LUMBAR unknown) INJECTION (unknown) (no (unknown) (unknown) Xiphoid pain (units (u nknown) date) unknown) (unknown) (no (unknown) (unknown) alcohol intake: (units (unknown) date) current unknown) (unknown) (no (unknown) (unknown) amlodipine 5 mg (units (unknown) date) tablet 5 mg PO unknown) DAILY 11/16/20 [History Confirmed 01/22/22] (unknown) (no (unknown) (unknown) aspirin 81 mg (units ( unknown) date) tablet,delayed unknown) release 81 mg PO QPM ##0 02/25/08 [History (unknown) (no (unknown) (unknown) atorvastatin 80 (units (unknown) date) mg tablet 80 mg PO unknown) DAILY 04/17/21 [History Confirmed 01/22/22] (unknown) (no (unknown) (unknown) caregiver/support (units (unknown) date) person: No unknown) (unknown) (no (unknown) (unknown) clobetasol 0.05 % (units (unknown) date) topical ointment 1 unknown) g topical BEDTIME 01/22/22 [History (unknown) (no (unknown) (unknown) details: to (units (un known) date) [place], lives in unknown) [place] (unknown) (no (unknown) (unknown) duloxetine 40 mg (units (unknown) date) capsule,delayed unknown) release 40 mg PO DAILY 06/26/21 [History (unknown) (no (unknown) (unknown) epinephrine (units (un known) date) [EPINEPHRINE] unknown) Allergy (Severe, Verified 01/22/22 13:56) (unknown) (no (unknown) (unknown) have occurred. If (units (unknown) date) there are any unknown) questions, please contact the Medical Records (unknown) (no (unknown) (unknown) household (units (unkn own) date) members: spouse unknown) (unknown) (no (unknown) (unknown) housing: house (units (unknown) date) unknown) (unknown) (no (unknown) (unknown) lisinopril 5 mg (units (unknown) date) tablet 5 mg PO unknown) DAILY 05/23/18 [History Confirmed 01/22/22] (unknown) (no (unknown) (unknown) lives (units (unkno wn) date) independently: Yes unknown) (unknown) (no (unknown) (unknown) marital status: (units (unknown) date) unknown) (unknown) (no (unknown) (unknown) may occur. (units (unk nown) date) Occasional unknown) wrong-word or 'sound-alike' substitutions may have (unknown) (no (unknown) (unknown) occurred due to (units (unknown) date) the inherent unknown) limitations of voice recognition software. Please (unknown) (no (unknown) (unknown) omeprazole 20 mg (units (unknown) date) capsule,delayed unknown) release 20 mg PO BEDTIME 09/05/18 [History (unknown) (no (unknown) (unknown) read the note (units ( unknown) date) carefully and unknown) recognize, using context, where these substitutions (unknown) (no (unknown) (unknown) ropinirole 0.5 mg (units (unknown) date) tablet 1.5 mg PO unknown) QPM 05/23/18 [History Confirmed 01/22/22] (unknown) (no (unknown) (unknown) software. 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 (unknown) (no (unknown) (unknown) substance use (units ( unknown) date) type: does not use unknown) (unknown) (no (unknown) (unknown) tetracycline (units (u nknown) date) [TETRACYCLINE] unknown) Allergy (Unknown, Verified 01/22/22 13:56) Result panel 2 (unknown) (no (unknown) (unknown) (no value) (units (unk nown) date) unknown) (unknown) (no (unknown) (unknown) 'to a point' (units (u nknown) date) ANAPHYLAXIS unknown) (unknown) (no (unknown) (unknown) 01/22/22 (units (unkno wn) date) unknown) (unknown) (no (unknown) (unknown) 14:09 (units (unkno wn) date) unknown) (unknown) (no (unknown) (unknown) ANAPHYLAXIS (units (un known) date) unknown) (unknown) (no (unknown) (unknown) Accompanied by: (units (unknown) date) Spouse unknown) (unknown) (no (unknown) (unknown) Age/Sex: 86 / M (units (unknown) date) Date of Service: unknown) (unknown) (no (unknown) (unknown) Allergies (units (unkn own) date) unknown) (unknown) (no (unknown) (unknown) JIM Lynn (units ( unknown) date) [id number] unknown) (unknown) (no (unknown) (unknown) Attending Dr: (units ( unknown) date) Que Pope D.O. unknown) (unknown) (no (unknown) (unknown) BMI 31.1 (units (unkno wn) date) unknown) (unknown) (no (unknown) (unknown) BP 138/68 (units (unkn own) date) unknown) (unknown) (no (unknown) (unknown) Back pain, (units (unk nown) date) sacroiliac unknown) (unknown) (no (unknown) (unknown) Blood Pressure (units (unknown) date) Location Lt unknown) brachial (unknown) (no (unknown) (unknown) Confirmed (units (unkn own) date) 01/22/22] unknown) (unknown) (no (unknown) (unknown) Costochondritis (units (unknown) date) unknown) (unknown) (no (unknown) (unknown) : 1935 (units (unknown) date) Acct:[id number] unknown) (unknown) (no (unknown) (unknown) 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 unknown) (unknown) (no (unknown) (unknown) Documented By: (units (unknown) date) Que Pope D.O. unknown) 01/22/22 1356 (unknown) (no (unknown) (unknown) Draft (units (unkno wn) date) unknown) (unknown) (no (unknown) (unknown) Dyslipidemia (units (u nknown) date) unknown) (unknown) (no (unknown) (unknown) Facet (units (unkno wn) date) arthropathy, unknown) lumbar (unknown) (no (unknown) (unknown) Family History (units (unknown) date) (Reviewed 09/25/21 unknown) @ 16:16 by Que Pope DO) (unknown) (no (unknown) (unknown) Father (units (unknown) date) Aorta aneurysm unknown) (unknown) (no (unknown) (unknown) Global amnesia (units (unknown) date) unknown) (unknown) (no (unknown) (unknown) H/O vein (units (unkno wn) date) stripping unknown) (unknown) (no (unknown) (unknown) HERE FOR POST (units ( unknown) date) LUMBAR unknown) (unknown) (no (unknown) (unknown) Height 5 ft 11 in (units (unknown) date) unknown) (unknown) (no (unknown) (unknown) Herniated nucleus (units (unknown) date) pulposus, L3-4 unknown) left (unknown) (no (unknown) (unknown) Herniated nucleus (units (unknown) date) pulposus, L5-S1 unknown) (unknown) (no (unknown) (unknown) History of (units (unk nown) date) prostate surgery unknown) (unknown) (no (unknown) (unknown) Hypertension (units (u nknown) date) unknown) (unknown) (no (unknown) (unknown) 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 (unknown) (no (unknown) (unknown) Intake Clinical (units (unknown) date) Staff unknown) (unknown) (no (unknown) (unknown) Intake Note: (units (u nknown) date) unknown) (unknown) (no (unknown) (unknown) Intake performed (units (unknown) date) by: Christine Becerril unknown) (unknown) (no (unknown) (unknown) Intake (units (unkno wn) date) unknown) (unknown) (no (unknown) (unknown) Is patient in (units ( unknown) date) pain?: Yes (HERE unknown) FOR POST LUMBAR SPINE) Pain scale (1-10): 5 (unknown) (no (unknown) (unknown) Loc: PAIN (units (unkn own) date) unknown) (unknown) (no (unknown) (unknown) Lumbosacral (units (un known) date) spondylosis unknown) (unknown) (no (unknown) (unknown) [id number] (units (unk nown) date) unknown) (unknown) (no (unknown) (unknown) Medical History (units (unknown) date) (Reviewed 09/25/21 unknown) @ 16:16 by Que Pope DO) (unknown) (no (unknown) (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 unknown) (unknown) (no (unknown) (unknown) Multilevel spinal (units (unknown) date) stenosis unknown) (unknown) (no (unknown) (unknown) Obstructive sleep (units (unknown) date) apnea of adult unknown) (unknown) (no (unknown) (unknown) Oxygen Delivery (units (unknown) date) Method room air unknown) (unknown) (no (unknown) (unknown) PFSH (units (unkno wn) date) unknown) (unknown) (no (unknown) (unknown) Pain Scale (units (unk nown) date) unknown) (unknown) (no (unknown) (unknown) Pain Visit (units (unk nown) date) unknown) (unknown) (no (unknown) (unknown) Patient: Linh (units (unknown) date) Reginald Ye MR#: unknown) (unknown) (no (unknown) (unknown) Penicillins (units (un known) date) [PENICILLINS] unknown) Adverse Reaction (Severe, Verified 01/22/22 13:56) (unknown) (no (unknown) (unknown) Position Sitting (units (unknown) date) unknown) (unknown) (no (unknown) (unknown) Prostate cancer (units (unknown) date) unknown) (unknown) (no (unknown) (unknown) Pulse 79 (units (unkno wn) date) unknown) (unknown) (no (unknown) (unknown) Pulse Oximetry (units (unknown) date) (%) 98 unknown) (unknown) (no (unknown) (unknown) Pulse Source (units (u nknown) date) Monitor unknown) (unknown) (no (unknown) (unknown) Reason For Visit (units (unknown) date) unknown) (unknown) (no (unknown) (unknown) Resprionics (units (un known) date) Remstar CPAP #1 ea unknown) 07/07/18 [History Confirmed 01/22/22] (unknown) (no (unknown) (unknown) Restless legs (units ( unknown) date) syndrome (RLS) unknown) (unknown) (no (unknown) (unknown) Signed By: (units (unk nown) date) unknown) (unknown) (no (unknown) (unknown) Smoking Status: (units (unknown) date) Former smoker unknown) (unknown) (no (unknown) (unknown) Social History (units (unknown) date) unknown) (unknown) (no (unknown) (unknown) Surgical History (units (unknown) date) (Reviewed 09/25/21 unknown) @ 16:16 by Que Pope DO) (unknown) (no (unknown) (unknown) TIA (transient (units (unknown) date) ischemic attack) unknown) (unknown) (no (unknown) (unknown) Temp 98.1 F (units (un known) date) unknown) (unknown) (no (unknown) (unknown) Temp Source (units (un known) date) Temporal Artery unknown) Scan (unknown) (no (unknown) (unknown) [facility] (units ([facility]) date) Pain Management unknown) (unknown) (no (unknown) (unknown) This note may (units ( unknown) date) have been all or unknown) partially generated using voice recognition (unknown) (no (unknown) (unknown) Tobacco + (units (unkn own) date) Substance Use unknown) (unknown) (no (unknown) (unknown) Tobacco Status (units (unknown) date) unknown) (unknown) (no (unknown) (unknown) Visit Reasons: FU (units (unknown) date) NAOMI, POST LUMBAR unknown) INJECTION (unknown) (no (unknown) (unknown) Vitals (units (unkno wn) date) unknown) (unknown) (no (unknown) (unknown) Weight 223 lb (units ( unknown) date) unknown) (unknown) (no (unknown) (unknown) Xiphoid pain (units (u nknown) date) unknown) (unknown) (no (unknown) (unknown) alcohol intake: (units (unknown) date) current unknown) (unknown) (no (unknown) (unknown) amlodipine 5 mg (units (unknown) date) tablet 5 mg PO unknown) DAILY 11/16/20 [History Confirmed 01/22/22] (unknown) (no (unknown) (unknown) aspirin 81 mg (units ( unknown) date) tablet,delayed unknown) release 81 mg PO QPM ##0 02/25/08 [History (unknown) (no (unknown) (unknown) atorvastatin 80 (units (unknown) date) mg tablet 80 mg PO unknown) DAILY 04/17/21 [History Confirmed 01/22/22] (unknown) (no (unknown) (unknown) caregiver/support (units (unknown) date) person: No unknown) (unknown) (no (unknown) (unknown) clobetasol 0.05 % (units (unknown) date) topical ointment 1 unknown) g topical BEDTIME 01/22/22 [History (unknown) (no (unknown) (unknown) details: to (units (un known) date) [place]ra, lives in unknown) [place] (unknown) (no (unknown) (unknown) duloxetine 40 mg (units (unknown) date) capsule,delayed unknown) release 40 mg PO DAILY 06/26/21 [History (unknown) (no (unknown) (unknown) epinephrine (units (un known) date) [EPINEPHRINE] unknown) Allergy (Severe, Verified 01/22/22 13:56) (unknown) (no (unknown) (unknown) have occurred. If (units (unknown) date) there are any unknown) questions, please contact the Medical Records (unknown) (no (unknown) (unknown) household (units (unkn own) date) members: spouse unknown) (unknown) (no (unknown) (unknown) housing: house (units (unknown) date) unknown) (unknown) (no (unknown) (unknown) lisinopril 5 mg (units (unknown) date) tablet 5 mg PO unknown) DAILY 05/23/18 [History Confirmed 01/22/22] (unknown) (no (unknown) (unknown) lives (units (unkno wn) date) independently: Yes unknown) (unknown) (no (unknown) (unknown) marital status: (units (unknown) date) unknown) (unknown) (no (unknown) (unknown) may occur. (units (unk nown) date) Occasional unknown) wrong-word or 'sound-alike' substitutions may have (unknown) (no (unknown) (unknown) occurred due to (units (unknown) date) the inherent unknown) limitations of voice recognition software. Please (unknown) (no (unknown) (unknown) omeprazole 20 mg (units (unknown) date) capsule,delayed unknown) release 20 mg PO BEDTIME 09/05/18 [History (unknown) (no (unknown) (unknown) read the note (units ( unknown) date) carefully and unknown) recognize, using context, where these substitutions (unknown) (no (unknown) (unknown) ropinirole 0.5 mg (units (unknown) date) tablet 1.5 mg PO unknown) QPM 05/23/18 [History Confirmed 01/22/22] (unknown) (no (unknown) (unknown) software. 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 (unknown) (no (unknown) (unknown) substance use (units ( unknown) date) type: does not use unknown) (unknown) (no (unknown) (unknown) tetracycline (units (u nknown) date) [TETRACYCLINE] unknown) Allergy (Unknown, Verified 01/22/22 13:56) Result panel 3 (unknown) (no (unknown) (unknown) (no value) (units (unk nown) date) unknown) (unknown) (no (unknown) (unknown) 'to a point' (units (u nknown) date) ANAPHYLAXIS unknown) (unknown) (no (unknown) (unknown) 02/22/22 (units (unkno wn) date) unknown) (unknown) (no (unknown) (unknown) ANAPHYLAXIS (units (un known) date) unknown) (unknown) (no (unknown) (unknown) Accompanied by: (units (unknown) date) Self / Same As unknown) Patient (unknown) (no (unknown) (unknown) Age/Sex: 86 / M (units (unknown) date) Date of Service: unknown) (unknown) (no (unknown) (unknown) Allergies (units (unkn own) date) unknown) (unknown) (no (unknown) (unknown) JIM Lynn (units ( unknown) date) [id number] unknown) (unknown) (no (unknown) (unknown) Attending Dr: (units ( unknown) date) Que Pope D.O. 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 unknown) (unknown) (no (unknown) (unknown) Documented By: (units (unknown) date) Que Pope D.O. unknown) 02/22/22 1323 (unknown) (no (unknown) (unknown) Draft (units (unkno wn) date) unknown) (unknown) (no (unknown) (unknown) Dyslipidemia (units (u nknown) date) unknown) (unknown) (no (unknown) (unknown) Facet (units (unkno wn) date) arthropathy, unknown) lumbar (unknown) (no (unknown) (unknown) Family History (units (unknown) date) (Reviewed 01/22/22 unknown) @ 14:37 by Que Pope DO) (unknown) (no (unknown) (unknown) Father (units (unknown) date) Aorta aneurysm unknown) (unknown) (no (unknown) (unknown) Global amnesia (units (unknown) date) unknown) (unknown) (no (unknown) (unknown) H/O vein (units (unkno wn) date) stripping unknown) (unknown) (no (unknown) (unknown) Herniated nucleus (units (unknown) date) pulposus, L3-4 unknown) left (unknown) (no (unknown) (unknown) Herniated nucleus (units (unknown) date) pulposus, L5-S1 unknown) (unknown) (no (unknown) (unknown) History of (units (unk nown) date) prostate surgery unknown) (unknown) (no (unknown) (unknown) Hypertension (units (u nknown) date) unknown) (unknown) (no (unknown) (unknown) 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 (unknown) (no (unknown) (unknown) Intake Clinical (units (unknown) date) Staff unknown) (unknown) (no (unknown) (unknown) Intake performed (units (unknown) date) by: Christine Becerril unknown) (unknown) (no (unknown) (unknown) Intake (units (unkno wn) date) unknown) (unknown) (no (unknown) (unknown) Loc: PAIN (units (unkn own) date) unknown) (unknown) (no (unknown) (unknown) Lumbosacral (units (un known) date) spondylosis unknown) (unknown) (no (unknown) (unknown) [id number] (units (unk nown) date) unknown) (unknown) (no (unknown) (unknown) Medical History (units (unknown) date) (Reviewed 01/22/22 unknown) @ 14:37 by Que Pope DO) (unknown) (no (unknown) (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 unknown) (unknown) (no (unknown) (unknown) Multilevel spinal (units (unknown) date) stenosis unknown) (unknown) (no (unknown) (unknown) Obstructive sleep (units (unknown) date) apnea of adult unknown) (unknown) (no (unknown) (unknown) PFSH (units (unkno wn) date) unknown) (unknown) (no (unknown) (unknown) Pain Visit (units (unk nown) date) unknown) (unknown) (no (unknown) (unknown) Patient: [place] (units (unknown) date) Reginald Ye MR#: unknown) (unknown) (no (unknown) (unknown) Penicillins (units (un known) date) [PENICILLINS] unknown) Adverse Reaction (Severe, Verified 02/22/22 13:25) (unknown) (no (unknown) (unknown) Prostate cancer (units (unknown) date) unknown) (unknown) (no (unknown) (unknown) Reason For Visit (units (unknown) date) unknown) (unknown) (no (unknown) (unknown) Resprionics (units (un known) date) Remstar CPAP #1 ea unknown) 07/07/18 [History Confirmed 02/22/22] (unknown) (no (unknown) (unknown) Restless legs (units ( unknown) date) syndrome (RLS) unknown) (unknown) (no (unknown) (unknown) Signed By: (units (unk nown) date) unknown) (unknown) (no (unknown) (unknown) Smoking Status: (units (unknown) date) Former smoker unknown) (unknown) (no (unknown) (unknown) Social History (units (unknown) date) unknown) (unknown) (no (unknown) (unknown) Surgical History (units (unknown) date) (Reviewed 01/22/22 unknown) @ 14:37 by Que Pope DO) (unknown) (no (unknown) (unknown) TIA (transient (units (unknown) date) ischemic attack) unknown) (unknown) (no (unknown) (unknown) [facility] (units (unknown) date) Pain Management unknown) (unknown) (no (unknown) (unknown) This note may (units ( unknown) date) have been all or unknown) partially generated using voice recognition (unknown) (no (unknown) (unknown) Tobacco + (units (unkn own) date) Substance Use unknown) (unknown) (no (unknown) (unknown) Tobacco Status (units (unknown) date) unknown) (unknown) (no (unknown) (unknown) Visit Reasons: (units (unknown) date) SHOULDER PAIN, unknown) LEFT SHOULDER PAIN (unknown) (no (unknown) (unknown) Xiphoid pain (units (u nknown) date) unknown) (unknown) (no (unknown) (unknown) alcohol intake: (units (unknown) date) current unknown) (unknown) (no (unknown) (unknown) amlodipine 5 mg (units (unknown) date) tablet 5 mg PO unknown) DAILY 11/16/20 [History Confirmed 02/22/22] (unknown) (no (unknown) (unknown) aspirin 81 mg (units ( unknown) date) tablet,delayed unknown) release 81 mg PO QPM ##0 02/25/08 [History (unknown) (no (unknown) (unknown) atorvastatin 80 (units (unknown) date) mg tablet 80 mg PO unknown) DAILY 04/17/21 [History Confirmed 02/22/22] (unknown) (no (unknown) (unknown) caregiver/support (units (unknown) date) person: No unknown) (unknown) (no (unknown) (unknown) clobetasol 0.05 % (units (unknown) date) topical ointment 1 unknown) g topical BEDTIME 01/22/22 [History (unknown) (no (unknown) (unknown) details: to (units (un known) date) Terra, lives in unknown) [place] (unknown) (no (unknown) (unknown) duloxetine 40 mg (units (unknown) date) capsule,delayed unknown) release 40 mg PO DAILY 06/26/21 [History (unknown) (no (unknown) (unknown) epinephrine (units (un known) date) [EPINEPHRINE] unknown) Allergy (Severe, Verified 02/22/22 13:25) (unknown) (no (unknown) (unknown) have occurred. If (units (unknown) date) there are any unknown) questions, please contact the Medical Records (unknown) (no (unknown) (unknown) household (units (unkn own) date) members: spouse unknown) (unknown) (no (unknown) (unknown) housing: house (units (unknown) date) unknown) (unknown) (no (unknown) (unknown) lisinopril 5 mg (units (unknown) date) tablet 5 mg PO unknown) DAILY 05/23/18 [History Confirmed 02/22/22] (unknown) (no (unknown) (unknown) lives (units (unkno wn) date) independently: Yes unknown) (unknown) (no (unknown) (unknown) marital status: (units (unknown) date) unknown) (unknown) (no (unknown) (unknown) may occur. (units (unk nown) date) Occasional unknown) wrong-word or 'sound-alike' substitutions may have (unknown) (no (unknown) (unknown) occurred due to (units (unknown) date) the inherent unknown) limitations of voice recognition software. Please (unknown) (no (unknown) (unknown) omeprazole 20 mg (units (unknown) date) capsule,delayed unknown) release 20 mg PO BEDTIME 09/05/18 [History (unknown) (no (unknown) (unknown) read the note (units ( unknown) date) carefully and unknown) recognize, using context, where these substitutions (unknown) (no (unknown) (unknown) ropinirole 0.5 mg (units (unknown) date) tablet 1.5 mg PO unknown) QPM 05/23/18 [History Confirmed 02/22/22] (unknown) (no (unknown) (unknown) software. 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 (unknown) (no (unknown) (unknown) substance use (units ( unknown) date) type: does not use unknown) (unknown) (no (unknown) (unknown) tetracycline (units (u nknown) date) [TETRACYCLINE] unknown) Allergy (Unknown, Verified 02/22/22 13:25) Result panel 4 (unknown) (no (unknown) (unknown) (no value) (units (unk nown) date) unknown) (unknown) (no (unknown) (unknown) 'to a point' (units (u nknown) date) ANAPHYLAXIS unknown) (unknown) (no (unknown) (unknown) 02/22/22 (units (unkno wn) date) unknown) (unknown) (no (unknown) (unknown) 14:03 (units (unkno wn) date) unknown) (unknown) (no (unknown) (unknown) ANAPHYLAXIS (units (un known) date) unknown) (unknown) (no (unknown) (unknown) Accompanied by: (units (unknown) date) Self / Same As unknown) Patient (unknown) (no (unknown) (unknown) Age/Sex: 86 / M (units (unknown) date) Date of Service: unknown) (unknown) (no (unknown) (unknown) Allergies (units (unkn own) date) unknown) (unknown) (no (unknown) (unknown) JIM Lynn (units ( unknown) date) [id number] unknown) (unknown) (no (unknown) (unknown) Attending Dr: (units ( unknown) date) Que Pope D.O. unknown) (unknown) (no (unknown) (unknown) BMI 31.1 (units (unkno wn) date) unknown) (unknown) (no (unknown) (unknown) BP 132/80 (units (unkn own) date) unknown) (unknown) (no (unknown) (unknown) Back pain, (units (unk nown) date) sacroiliac unknown) (unknown) (no (unknown) (unknown) Blood Pressure (units (unknown) date) Location Rt unknown) brachial (unknown) (no (unknown) (unknown) Confirmed (units (unkn own) date) 02/22/22] unknown) (unknown) (no (unknown) (unknown) Costochondritis (units (unknown) date) unknown) (unknown) (no (unknown) (unknown) : 1935 (units (unknown) date) Acct:[id number] unknown) (unknown) (no (unknown) (unknown) 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 unknown) (unknown) (no (unknown) (unknown) Documented By: (units (unknown) date) Que Pope D.O. unknown) 02/22/22 1323 (unknown) (no (unknown) (unknown) Draft (units (unkno wn) date) unknown) (unknown) (no (unknown) (unknown) Dyslipidemia (units (u nknown) date) unknown) (unknown) (no (unknown) (unknown) Facet (units (unkno wn) date) arthropathy, unknown) lumbar (unknown) (no (unknown) (unknown) Family History (units (unknown) date) (Reviewed 01/22/22 unknown) @ 14:37 by Que Pope DO) (unknown) (no (unknown) (unknown) Father (units (unknown) date) Aorta aneurysm unknown) (unknown) (no (unknown) (unknown) Global amnesia (units (unknown) date) unknown) (unknown) (no (unknown) (unknown) H/O vein (units (unkno wn) date) stripping unknown) (unknown) (no (unknown) (unknown) HERE FOR LEFT (units ( unknown) date) SHOULDER PAIN unknown) (unknown) (no (unknown) (unknown) Height 5 ft 11 in (units (unknown) date) unknown) (unknown) (no (unknown) (unknown) Herniated nucleus (units (unknown) date) pulposus, L3-4 unknown) left (unknown) (no (unknown) (unknown) Herniated nucleus (units (unknown) date) pulposus, L5-S1 unknown) (unknown) (no (unknown) (unknown) History of (units (unk nown) date) prostate surgery unknown) (unknown) (no (unknown) (unknown) Hypertension (units (u nknown) date) unknown) (unknown) (no (unknown) (unknown) 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 (unknown) (no (unknown) (unknown) Intake Clinical (units (unknown) date) Staff unknown) (unknown) (no (unknown) (unknown) Intake Note: (units (u nknown) date) unknown) (unknown) (no (unknown) (unknown) Intake performed (units (unknown) date) by: Christine Becerril unknown) (unknown) (no (unknown) (unknown) Intake (units (unkno wn) date) unknown) (unknown) (no (unknown) (unknown) Is patient in (units ( unknown) date) pain?: Yes (HERE unknown) FOR LEFT SHOULDER) Pain scale (1-10): 6 (unknown) (no (unknown) (unknown) Loc: PAIN (units (unkn own) date) unknown) (unknown) (no (unknown) (unknown) Lumbosacral (units (un known) date) spondylosis unknown) (unknown) (no (unknown) (unknown) [id number] (units (unk nown) date) unknown) (unknown) (no (unknown) (unknown) Medical History (units (unknown) date) (Reviewed 01/22/22 unknown) @ 14:37 by Que Pope DO) (unknown) (no (unknown) (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 unknown) (unknown) (no (unknown) (unknown) Multilevel spinal (units (unknown) date) stenosis unknown) (unknown) (no (unknown) (unknown) Obstructive sleep (units (unknown) date) apnea of adult unknown) (unknown) (no (unknown) (unknown) Oxygen Delivery (units (unknown) date) Method room air unknown) (unknown) (no (unknown) (unknown) PFSH (units (unkno wn) date) unknown) (unknown) (no (unknown) (unknown) Pain Scale (units (unk nown) date) unknown) (unknown) (no (unknown) (unknown) Pain Visit (units (unk nown) date) unknown) (unknown) (no (unknown) (unknown) Patient: Linh (units (unknown) date) Reginald Willie MR#: unknown) (unknown) (no (unknown) (unknown) Penicillins (units (un known) date) [PENICILLINS] unknown) Adverse Reaction (Severe, Verified 02/22/22 13:25) (unknown) (no (unknown) (unknown) Prostate cancer (units (unknown) date) unknown) (unknown) (no (unknown) (unknown) Pulse 73 (units (unkno wn) date) unknown) (unknown) (no (unknown) (unknown) Pulse Oximetry (units (unknown) date) (%) 97 unknown) (unknown) (no (unknown) (unknown) Pulse Source (units (u nknown) date) Monitor unknown) (unknown) (no (unknown) (unknown) Reason For Visit (units (unknown) date) unknown) (unknown) (no (unknown) (unknown) Resprionics (units (un known) date) Remstar CPAP #1 ea unknown) 07/07/18 [History Confirmed 02/22/22] (unknown) (no (unknown) (unknown) Restless legs (units ( unknown) date) syndrome (RLS) unknown) (unknown) (no (unknown) (unknown) Signed By: (units (unk nown) date) unknown) (unknown) (no (unknown) (unknown) Smoking Status: (units (unknown) date) Former smoker unknown) (unknown) (no (unknown) (unknown) Social History (units (unknown) date) unknown) (unknown) (no (unknown) (unknown) Surgical History (units (unknown) date) (Reviewed 01/22/22 unknown) @ 14:37 by Que Pope DO) (unknown) (no (unknown) (unknown) TIA (transient (units (unknown) date) ischemic attack) unknown) (unknown) (no (unknown) (unknown) Temp 98.1 F (units (un known) date) unknown) (unknown) (no (unknown) (unknown) Temp Source (units (un known) date) Temporal Artery unknown) Scan (unknown) (no (unknown) (unknown) [facility] ([facility] unknown) (unknown) (no (unknown) (unknown) This note may (units ( unknown) date) have been all or unknown) partially generated using voice recognition (unknown) (no (unknown) (unknown) Tobacco + (units (unkn own) date) Substance Use unknown) (unknown) (no (unknown) (unknown) Tobacco Status (units (unknown) date) unknown) (unknown) (no (unknown) (unknown) Visit Reasons: (units (unknown) date) LEFT SHOULDER unknown) PAIN, SHOULDER PAIN (unknown) (no (unknown) (unknown) Vitals (units (unkno wn) date) unknown) (unknown) (no (unknown) (unknown) Weight 223 lb (units ( unknown) date) unknown) (unknown) (no (unknown) (unknown) Xiphoid pain (units (u nknown) date) unknown) (unknown) (no (unknown) (unknown) alcohol intake: (units (unknown) date) current unknown) (unknown) (no (unknown) (unknown) amlodipine 5 mg (units (unknown) date) tablet 5 mg PO unknown) DAILY 11/16/20 [History Confirmed 02/22/22] (unknown) (no (unknown) (unknown) aspirin 81 mg (units ( unknown) date) tablet,delayed unknown) release 81 mg PO QPM ##0 02/25/08 [History (unknown) (no (unknown) (unknown) atorvastatin 80 (units (unknown) date) mg tablet 80 mg PO unknown) DAILY 04/17/21 [History Confirmed 02/22/22] (unknown) (no (unknown) (unknown) caregiver/support (units (unknown) date) person: No unknown) (unknown) (no (unknown) (unknown) clobetasol 0.05 % (units (unknown) date) topical ointment 1 unknown) g topical BEDTIME 01/22/22 [History (unknown) (no (unknown) (unknown) details: to (units (un known) date) Terra, lives in unknown) [place] (unknown) (no (unknown) (unknown) duloxetine 40 mg (units (unknown) date) capsule,delayed unknown) release 40 mg PO DAILY 06/26/21 [History (unknown) (no (unknown) (unknown) epinephrine (units (un known) date) [EPINEPHRINE] unknown) Allergy (Severe, Verified 02/22/22 13:25) (unknown) (no (unknown) (unknown) have occurred. If (units (unknown) date) there are any unknown) questions, please contact the Medical Records (unknown) (no (unknown) (unknown) household (units (unkn own) date) members: spouse unknown) (unknown) (no (unknown) (unknown) housing: house (units (unknown) date) unknown) (unknown) (no (unknown) (unknown) lisinopril 5 mg (units (unknown) date) tablet 5 mg PO unknown) DAILY 05/23/18 [History Confirmed 02/22/22] (unknown) (no (unknown) (unknown) lives (units (unkno wn) date) independently: Yes unknown) (unknown) (no (unknown) (unknown) marital status: (units (unknown) date) unknown) (unknown) (no (unknown) (unknown) may occur. (units (unk nown) date) Occasional unknown) wrong-word or 'sound-alike' substitutions may have (unknown) (no (unknown) (unknown) occurred due to (units (unknown) date) the inherent unknown) limitations of voice recognition software. Please (unknown) (no (unknown) (unknown) omeprazole 20 mg (units (unknown) date) capsule,delayed unknown) release 20 mg PO BEDTIME 09/05/18 [History (unknown) (no (unknown) (unknown) read the note (units ( unknown) date) carefully and unknown) recognize, using context, where these substitutions (unknown) (no (unknown) (unknown) ropinirole 0.5 mg (units (unknown) date) tablet 1.5 mg PO unknown) QPM 05/23/18 [History Confirmed 02/22/22] (unknown) (no (unknown) (unknown) software. 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 (unknown) (no (unknown) (unknown) substance use (units ( unknown) date) type: does not use unknown) (unknown) (no (unknown) (unknown) tetracycline (units (u nknown) date) [TETRACYCLINE] unknown) Allergy (Unknown, Verified 02/22/22 13:25) Result panel 5 (unknown) (no (unknown) (unknown) (no value) (units (unk nown) date) unknown) (unknown) (no (unknown) (unknown) 'to a point' (units (u nknown) date) ANAPHYLAXIS unknown) (unknown) (no (unknown) (unknown) (R/L): 07/13 / 07/13 (units (unknown) date) unknown) (unknown) (no (unknown) (unknown) / 2:1 (units (unkno wn) date) unknown) (unknown) (no (unknown) (unknown) / 07/13 (units (unkno wn) date) unknown) (unknown) (no (unknown) (unknown) 02/22/22 (units (unkno wn) date) unknown) (unknown) (no (unknown) (unknown) 12:05 (units (unkno wn) date) unknown) (unknown) (no (unknown) (unknown) 14:03 (units (unkno wn) date) unknown) (unknown) (no (unknown) (unknown) 6cc including 2cc (units (unknown) date) or 80 mg of Kenalog unknown) combined with 4cc of 0.5% ropivacaine was (unknown) (no (unknown) (unknown) 80 mg intrabursal (units (unknown) date) left shoulder unknown) [id number] 07/10/23 [id number] 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 (unknown) (no (unknown) (unknown) ACCESSION#: (units (un known) date) [id number] EXAM unknown) DATE: 03/29/2017 (unknown) (no (unknown) (unknown) ANAPHYLAXIS (units (un known) date) unknown) (unknown) (no (unknown) (unknown) Abduction (R/L): (units (unknown) date) 07/13 ER(R/L): unknown) 07/13 IR (R/L): 07/13 (unknown) (no (unknown) (unknown) Accompanied by: (units (unknown) date) Self / Same As unknown) Patient (unknown) (no (unknown) (unknown) Active FE (R/L): (units (unknown) date) 160 / 160 Passive FE unknown) (R/L): 160 / 160 (unknown) (no (unknown) (unknown) Administered by: (units (unknown) date) Que Pope DO on unknown) 02/22/22 14:38 (unknown) (no (unknown) (unknown) Age/Sex: 86 / M (units (unknown) date) Date of Service: unknown) (unknown) (no (unknown) (unknown) All other systems (units (unknown) date) reviewed and are unknown) unremarkable except as noted in HPI. (unknown) (no (unknown) (unknown) Allergies (units (unkn own) date) unknown) (unknown) (no (unknown) (unknown) JIM Lynn [id number] (unit s (unknown) date) unknown) (unknown) (no (unknown) (unknown) As oral consent, we (units (unknown) date) did review the risks unknown) of the above stated procedure including (unknown) (no (unknown) (unknown) Assessment + Plan (units (unknown) date) unknown) (unknown) (no (unknown) (unknown) Attending Dr: (units ( unknown) date) Que Pope D.O. unknown) (unknown) (no (unknown) (unknown) BMI 31.1 (units (unkno wn) date) unknown) (unknown) (no (unknown) (unknown) BP 132/80 (units (unkn own) date) unknown) (unknown) (no (unknown) (unknown) Back pain, (units (unk nown) date) sacroiliac unknown) (unknown) (no (unknown) (unknown) Biceps (R/L):07/13 / (units (unknown) date) 07/13 Triceps unknown) (R/L):07/13 / 07/13 Intrinsics (unknown) (no (unknown) (unknown) Blood Pressure (units (unknown) date) Location Rt brachial unknown) (unknown) (no (unknown) (unknown) C-Spine Tenderness: (unit s (unknown) date) non-tender unknown) Spurling's Test (R/L): neg / neg (unknown) (no (unknown) (unknown) C-spine Flexion: 45 (unit s (unknown) date) C-spine Extension: unknown) 45 (unknown) (no (unknown) (unknown) C-spine Right (units ( unknown) date) Rotation: 70 C-spine unknown) Left Rotation: 70 (unknown) (no (unknown) (unknown) CONTRAST MEDIA: (units (unknown) date) STATION ID: [id number] unknown) (unknown) (no (unknown) (unknown) Confirmed 02/22/22] (unit s (unknown) date) unknown) (unknown) (no (unknown) (unknown) Costochondritis (units (unknown) date) unknown) (unknown) (no (unknown) (unknown) Cross Arm (R/L): (units (unknown) date) neg / neg Neer unknown) Impingement Test (R/L): (unknown) (no (unknown) (unknown) : 1935 (units (unknown) date) Acct:[id number] unknown) (unknown) (no (unknown) (unknown) DTR UE (R/L): (units ( unknown) date) Biceps: (2+/2+); unknown) Triceps: (2+/2+) (unknown) (no (unknown) (unknown) 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 unknown) (unknown) (no (unknown) (unknown) Dictated by: Chris (units (unknown) date) Roque Duong M.D. on unknown) 03/29/2017 at 12:08 (unknown) (no (unknown) (unknown) Documented By: (units (unknown) date) Que Pope D.O. unknown) 02/22/22 1323 (unknown) (no (unknown) (unknown) Dose Route Admin (units (unknown) date) Location Lot Number unknown) Expiration Date NDC (unknown) (no (unknown) (unknown) Draft (units (unkno wn) date) unknown) (unknown) (no (unknown) (unknown) Durolane injection (units (unknown) date) 09/22/2018 with good unknown) relief, urinary frequency and urgency, (unknown) (no (unknown) (unknown) Dyslipidemia (units (u nknown) date) unknown) (unknown) (no (unknown) (unknown) Endorses COPD, (units (unknown) date) restless legs unknown) syndrome, TIA, bilateral knee DJD status post (unknown) (no (unknown) (unknown) Exam Narrative (units (unknown) date) unknown) (unknown) (no (unknown) (unknown) Exam Narrative: (units (unknown) date) unknown) (unknown) (no (unknown) (unknown) Exam (units (unkno wn) date) unknown) (unknown) (no (unknown) (unknown) External Rotation (units (unknown) date) at side (R/L): 45 / unknown) 45 Internal Rotation (R/L): (unknown) (no (unknown) (unknown) FLUORO TIME: (units (u nknown) date) unknown) (unknown) (no (unknown) (unknown) Facet arthropathy, (units (unknown) date) lumbar unknown) (unknown) (no (unknown) (unknown) Family History (units (unknown) date) (Reviewed 02/22/22 @ unknown) 14:38 by Que Pope DO) (unknown) (no (unknown) (unknown) Father (units (unknown) date) Aorta aneurysm unknown) (unknown) (no (unknown) (unknown) Gait: normal (units (u nknown) date) Coordination: normal unknown) (unknown) (no (unknown) (unknown) General Appearance: (unit s (unknown) date) Well-nourished, well unknown) developed in no acute distress (unknown) (no (unknown) (unknown) Global amnesia (units (unknown) date) unknown) (unknown) (no (unknown) (unknown) H/O vein stripping (units (unknown) date) unknown) (unknown) (no (unknown) (unknown) HERE FOR LEFT (units ( unknown) date) SHOULDER PAIN unknown) (unknown) (no (unknown) (unknown) Hernandez Test (R/L): (unit s (unknown) date) neg / neg unknown) Scapulothoracic motion (R/L): 2:1 (unknown) (no (unknown) (unknown) Height 5 ft 11 in (units (unknown) date) unknown) (unknown) (no (unknown) (unknown) Herniated nucleus (units (unknown) date) pulposus, 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 (unknown) (no (unknown) (unknown) Intake Clinical (units (unknown) date) Staff unknown) (unknown) (no (unknown) (unknown) Intake Note: (units (u nknown) date) unknown) (unknown) (no (unknown) (unknown) Intake performed (units (unknown) date) by: Christine Becerril unknown) (unknown) (no (unknown) (unknown) Intake (units (unkno wn) date) unknown) (unknown) (no (unknown) (unknown) Interventions/Proc. 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 Loss of disc signal is seen at this (unknown) (no (unknown) (unknown) L2-L3: Mild loss of (unit s (unknown) date) disc height is seen. unknown) Loss of disc signal is seen. Endplate (unknown) (no (unknown) (unknown) L3-L4: The disc (units (unknown) date) height is unknown) well-preserved. Loss of disc signal is seen at this (unknown) (no (unknown) (unknown) L4-L5: Mild loss of (unit s (unknown) date) disc height is seen. unknown) Loss of disc signal is seen. Moderate (unknown) (no (unknown) (unknown) L5-S1: Mild loss of (unit s (unknown) date) disc height is seen. unknown) Loss of disc signal is seen. Moderate (unknown) (no (unknown) (unknown) Loc: PAIN (units (unkn own) date) unknown) (unknown) (no (unknown) (unknown) Lumbosacral (units (un known) date) spondylosis unknown) (unknown) (no (unknown) (unknown) Lymph UE (R/L): No (units (unknown) date) axillary unknown) lymphadenopathy (unknown) (no (unknown) (unknown) [id number] (units (unk nown) date) unknown) (unknown) (no (unknown) (unknown) MODALITY: MR (units (u nknown) date) PATIENT TYPE: Out unknown) (unknown) (no (unknown) (unknown) (units (unknown) date) ACCOUNT #: unknown) [id number] (unknown) (no (unknown) (unknown) MSK: System (units (un known) date) reviewed and no unknown) additional complaints, except as documented. 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 These degenerative changes are (unknown) (no (unknown) (unknown) Moderate disc bulge (unit s (unknown) date) is seen, which is unknown) eccentric to the left. Mild facet joint (unknown) (no (unknown) (unknown) Moderate to (units (un known) date) prominent disc bulge unknown) is seen, which is eccentric to the right. Mild (unknown) (no (unknown) (unknown) Mother No (units (unknown) date) problems noted. unknown) (unknown) (no (unknown) (unknown) Multilevel spinal (units (unknown) date) stenosis unknown) (unknown) (no (unknown) (unknown) Multiple levels of (units (unknown) date) degenerative change unknown) are seen, several of which are progressed (unknown) (no (unknown) (unknown) Neuro: System (units ( unknown) date) reviewed and no unknown) additional complaints, except as documented. (unknown) (no (unknown) (unknown) Kenly's Test (units (unknown) date) (R/L): neg / neg unknown) [place] Test (R/L): neg / neg (unknown) (no (unknown) (unknown) ORD. SHANNON: QUE (units (unknown) date) JULIANNE Sears CC: unknown) (unknown) (no (unknown) (unknown) Objective Data (units (unknown) date) unknown) (unknown) (no (unknown) (unknown) Objective Data: (units (unknown) date) unknown) (unknown) (no (unknown) (unknown) Obstructive sleep (units (unknown) date) apnea of adult unknown) (unknown) (no (unknown) (unknown) Office Meds (units (un known) date) unknown) (unknown) (no (unknown) (unknown) Orders (units (unkno wn) date) unknown) (unknown) (no (unknown) (unknown) Orders: (units (unkno wn) date) unknown) (unknown) (no (unknown) (unknown) Orientation: (units (u nknown) date) Oriented to person, unknown) place and time. Mood / Affect: Calm (unknown) (no (unknown) (unknown) Oxygen Delivery (units (unknown) date) Method room air unknown) (unknown) (no (unknown) (unknown) PATIENT NAME: (units ( unknown) date) REGINALD MELTON unknown) : 1935 (unknown) (no (unknown) (unknown) PFSH (units (unkno wn) date) unknown) (unknown) (no (unknown) (unknown) Pain Scale (units (unk nown) date) unknown) (unknown) (no (unknown) (unknown) Pain Visit (units (unk nown) date) unknown) (unknown) (no (unknown) (unknown) Patient: Linh (units (unknown) date) Reginald Ye MR#: unknown) (unknown) (no (unknown) (unknown) Penicillins (units (un known) date) [PENICILLINS] unknown) Adverse Reaction (Severe, Verified 02/22/22 13:25) (unknown) (no (unknown) (unknown) Performing (units (unk nown) date) Provider: Que unknown) DO Julianne (unknown) (no (unknown) (unknown) Prostate cancer (units (unknown) date) unknown) (unknown) (no (unknown) (unknown) Pulse 73 (units (unkno wn) date) unknown) (unknown) (no (unknown) (unknown) Pulse Oximetry (%) (units (unknown) date) 97 unknown) (unknown) (no (unknown) (unknown) Pulse Source (units (u nknown) date) Monitor unknown) (unknown) (no (unknown) (unknown) ROS Narrative (units ( unknown) date) unknown) (unknown) (no (unknown) (unknown) ROS Narrative: (units (unknown) date) unknown) (unknown) (no (unknown) (unknown) ROS (units (unkno wn) date) unknown) (unknown) (no (unknown) (unknown) Reason For Visit (units (unknown) date) unknown) (unknown) (no (unknown) (unknown) Resprionics Remstar (unit s (unknown) date) CPAP #1 ea 07/07/18 unknown) [History Confirmed 02/22/22] (unknown) (no (unknown) (unknown) Restless legs (units ( unknown) date) syndrome (RLS) unknown) (unknown) (no (unknown) (unknown) Sensation: (units (unk nown) date) Subjective normal unknown) median / ulnar / radial / axillary sensation (unknown) (no (unknown) (unknown) Shoulder Exam (units ( unknown) date) (Bilateral) unknown) (unknown) (no (unknown) (unknown) Signed By: (units (unk nown) date) unknown) (unknown) (no (unknown) (unknown) Smoking Status: (units (unknown) date) Former smoker unknown) (unknown) (no (unknown) (unknown) Social History (units (unknown) date) unknown) (unknown) (no (unknown) (unknown) Speeds (R/L): neg / (unit s (unknown) date) neg Apprehension unknown) (R/L): neg /neg (unknown) (no (unknown) (unknown) Surgical History (units (unknown) date) (Reviewed 02/22/22 @ unknown) 14:38 by Que Pope DO) (unknown) (no (unknown) (unknown) TIA (transient (units (unknown) date) ischemic attack) unknown) (unknown) (no (unknown) (unknown) Temp 98.1 F (units (un known) date) unknown) (unknown) (no (unknown) (unknown) Temp Source (units (un known) date) Temporal Artery Scan unknown) (unknown) (no (unknown) (unknown) [facility] (unit s (unknown) date) Management unknown) (unknown) (no (unknown) (unknown) The left shoulder (units (unknown) date) was prepped in usual unknown) sterile fashion with the use of (unknown) (no (unknown) (unknown) There is a degree (units (unknown) date) of impingement seen unknown) upon the exiting nerve roots. There is at (unknown) (no (unknown) (unknown) There is (units (unkno wn) date) unknown) (unknown) (no (unknown) (unknown) They referred by did (unit s (unknown) date) a post injection unknown) instructions sheet as well as pain like to (unknown) (no (unknown) (unknown) This note may have (units (unknown) date) been all or unknown) partially generated using voice recognition (unknown) (no (unknown) (unknown) Tobacco + Substance (unit s (unknown) date) Use unknown) (unknown) (no (unknown) (unknown) Tobacco Status (units (unknown) date) unknown) (unknown) (no (unknown) (unknown) UE Skin (R/L): No (units (unknown) date) rashes or lesions. unknown) (unknown) (no (unknown) (unknown) Vasculature: 2+ (units (unknown) date) radial pulse unknown) bilaterally. (unknown) (no (unknown) (unknown) Visit Reasons: LEFT (unit s (unknown) date) SHOULDER PAIN, unknown) SHOULDER PAIN (unknown) (no (unknown) (unknown) Vitals (units (unkno wn) date) unknown) (unknown) (no (unknown) (unknown) Weight 223 lb (units ( unknown) date) unknown) (unknown) (no (unknown) (unknown) Xiphoid pain (units (u nknown) date) unknown) (unknown) (no (unknown) (unknown) alcohol intake: (units (unknown) date) current unknown) (unknown) (no (unknown) (unknown) amlodipine 5 mg (units (unknown) date) tablet 5 mg PO DAILY unknown) 11/16/20 [History Confirmed 02/22/22] (unknown) (no (unknown) (unknown) aspirin 81 mg (units ( unknown) date) tablet,delayed unknown) release 81 mg PO QPM ##0 02/25/08 [History (unknown) (no (unknown) (unknown) atorvastatin 80 mg (units (unknown) date) tablet 80 mg PO unknown) DAILY 04/17/21 [History Confirmed 02/22/22] (unknown) (no (unknown) (unknown) bilateral neural (units (unknown) date) unknown) (unknown) (no (unknown) (unknown) bilaterally (units (un known) date) unknown) (unknown) (no (unknown) (unknown) can be seen, (units (un known) date) including a unknown) Schmorl's node at the inferior endplate of L2. Moderate (unknown) (no (unknown) (unknown) caregiver/support (units (unknown) date) person: No unknown) (unknown) (no (unknown) (unknown) central canal (units ( unknown) date) narrowing is seen. unknown) The previously described right lateral recess (unknown) (no (unknown) (unknown) central canal (units ( unknown) date) narrowing is seen. unknown) When comparison is made with the prior images, (unknown) (no (unknown) (unknown) chlorhexidine (units ( unknown) date) scrub. Visualization unknown) of the joint space as well as the injection (unknown) (no (unknown) (unknown) clobetasol 0.05 % (units (unknown) date) topical ointment 1 g unknown) topical BEDTIME 01/22/22 [History (unknown) (no (unknown) (unknown) compared to 2012. (units (unknown) date) unknown) (unknown) (no (unknown) (unknown) compared to the (units (unknown) date) prior MRI. unknown) (unknown) (no (unknown) (unknown) details: rocky Ellison, (units (unknown) date) lives in [place] unknown) on [place] (unknown) (no (unknown) (unknown) disc (units (unkno wn) date) unknown) (unknown) (no (unknown) (unknown) duloxetine 40 mg (units (unknown) date) capsule,delayed unknown) release 40 mg PO DAILY 06/26/21 [History (unknown) (no (unknown) (unknown) epinephrine (units (un known) date) [EPINEPHRINE] unknown) Allergy (Severe, Verified 02/22/22 13:25) (unknown) (no (unknown) (unknown) excellent condition (unit s (unknown) date) under their own unknown) power. (unknown) (no (unknown) (unknown) extrusion has (units ( unknown) date) resolved. unknown) (unknown) (no (unknown) (unknown) facet hypertrophy (units (unknown) date) is seen. There is unknown) associated moderate hypertrophy of the (unknown) (no (unknown) (unknown) findings are (units (u nknown) date) stable. unknown) (unknown) (no (unknown) (unknown) foraminal narrowing (units (unknown) date) is seen. These unknown) degenerative changes have progressed compared (unknown) (no (unknown) (unknown) generalized disc (units (unknown) date) bulge is seen. unknown) [id number] facet hypertrophy is seen. (unknown) (no (unknown) (unknown) generalized disc (units (unknown) date) bulge is seen. unknown) Moderate facet joint hypertrophy is seen. There (unknown) (no (unknown) (unknown) have occurred. If (units (unknown) date) there are any unknown) questions, please contact the Medical Records (unknown) (no (unknown) (unknown) history of prostate (unit s (unknown) date) CA. unknown) (unknown) (no (unknown) (unknown) household members: (units (unknown) date) spouse unknown) (unknown) (no (unknown) (unknown) housing: house (units (unknown) date) unknown) (unknown) (no (unknown) (unknown) hypertrophy is (units (unknown) date) unknown) (unknown) (no (unknown) (unknown) infiltrated without (unit s (unknown) date) incident. Patient unknown) tolerated the procedure well without (unknown) (no (unknown) (unknown) intravenous drug (units (unknown) date) use, sustained unknown) glucocorticoid use, osteoporosis, or a focal (unknown) (no (unknown) (unknown) irregularity (units (u nknown) date) unknown) (unknown) (no (unknown) (unknown) is (units (unkno wn) date) unknown) (unknown) (no (unknown) (unknown) least (units (unkno wn) date) unknown) (unknown) (no (unknown) (unknown) level. (units (unkno wn) date) unknown) (unknown) (no (unknown) (unknown) ligamentum flavum. (units (unknown) date) Moderate to severe unknown) bilateral neural foraminal narrowing is (unknown) (no (unknown) (unknown) lisinopril 5 mg (units (unknown) date) tablet 5 mg PO DAILY unknown) 05/23/18 [History Confirmed 02/22/22] (unknown) (no (unknown) (unknown) lives (units (unkno wn) date) independently: Yes unknown) (unknown) (no (unknown) (unknown) marital status: (units (unknown) date) unknown) (unknown) (no (unknown) (unknown) may occur. (units (unk nown) date) Occasional unknown) wrong-word or 'sound-alike' substitutions may have (unknown) (no (unknown) (unknown) moderate central (units (unknown) date) canal narrowing unknown) present. These degenerative changes have (unknown) (no (unknown) (unknown) moderate left-sided (unit s (unknown) date) and mild to moderate unknown) right-sided neural foraminal narrowing (unknown) (no (unknown) (unknown) moderate (units (unkno wn) date) right-sided and mild unknown) left-sided neural foraminal narrowing seen. No (unknown) (no (unknown) (unknown) monitor the relief (units (unknown) date) prior to our unknown) follow-up visit. (unknown) (no (unknown) (unknown) neg / neg (units (unkn own) date) unknown) (unknown) (no (unknown) (unknown) neurological (units (u nknown) date) deficit with unknown) progressive or disabling symptoms. (unknown) (no (unknown) (unknown) not limited to (units (unknown) date) bleeding, infection, unknown) allergic reaction, nerve injury, stroke, (unknown) (no (unknown) (unknown) obtained today (units (unknown) date) without guarantees unknown) or assurances of complete relief applied. (unknown) (no (unknown) (unknown) occurred due to the (unit s (unknown) date) inherent limitations unknown) of voice recognition software. Please (unknown) (no (unknown) (unknown) omeprazole 20 mg (units (unknown) date) capsule,delayed unknown) release 20 mg PO BEDTIME 09/05/18 [History (unknown) (no (unknown) (unknown) or (units (unkno wn) date) immunosuppressive unknown) therapy, previous or current cancer diagnosis, history of (unknown) (no (unknown) (unknown) palpated. A 25 gauge (unit s (unknown) date) 1 advancing was unknown) atraumatically introduced and advanced into (unknown) (no (unknown) (unknown) paralysis and (unit s (unknown) date) and the patient unknown) elected to proceed. Informed consent was (unknown) (no (unknown) (unknown) progressed (units (unk nown) date) unknown) (unknown) (no (unknown) (unknown) prominent disc (units (unknown) date) bulge is seen, which unknown) is eccentric to the right. Moderate (unknown) (no (unknown) (unknown) read the note (units ( unknown) date) carefully and unknown) recognize, using context, where these substitutions (unknown) (no (unknown) (unknown) ropinirole 0.5 mg (units (unknown) date) tablet 1.5 mg PO QPM unknown) 05/23/18 [History Confirmed 02/22/22] (unknown) (no (unknown) (unknown) seen. (units (unkno wn) date) [id number]-qejcidbi unknown) bilateral neural foraminal narrowing is seen. No (unknown) (no (unknown) (unknown) seen. (units (unkno wn) date) unknown) (unknown) (no (unknown) (unknown) significant (units (un known) date) unknown) (unknown) (no (unknown) (unknown) signs simply (units (u nknown) date) complications noting unknown) significant relief prior to dismissal in (unknown) (no (unknown) (unknown) software. 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 (units (unkno wn) date) unknown) (unknown) (no (unknown) (unknown) to (units (unkno wn) date) unknown) (unknown) (no (unknown) (unknown) tomoderate (units (unk nown) date) unknown) (unknown) (no (unknown) (unknown) was carried out (units (unknown) date) under ultrasound unknown) guidance. 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: (unknown) (no (unknown) (unknown) (2) Herniated (units ( unknown) date) nucleus pulposus, unknown) L3-4 left: (unknown) (no (unknown) (unknown) (3) (units (unkno wn) date) Costochondritis: unknown) (unknown) (no (unknown) (unknown) (4) Facet (units (unkn own) date) arthropathy, lumbar: unknown) (unknown) (no (unknown) (unknown) (5) Lumbosacral (units (unknown) date) spondylosis: unknown) (unknown) (no (unknown) (unknown) (6) Multilevel (units (unknown) date) spinal stenosis: unknown) (unknown) (no (unknown) (unknown) (7) Herniated (units ( unknown) date) nucleus pulposus, unknown) L5-S1: (unknown) (no (unknown) (unknown) (8) 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: (unknown) (no (unknown) (unknown) (R/L): 07/13 (units (unknown) date) unknown) (unknown) (no (unknown) (unknown) / 2:1 (units (unkno wn) date) unknown) (unknown) (no (unknown) (unknown) / 07/13 (units (unkno wn) date) unknown) (unknown) (no (unknown) (unknown) 02/22/22 (units (unkno wn) date) unknown) (unknown) (no (unknown) (unknown) 12:05 (units (unkno wn) date) unknown) (unknown) (no (unknown) (unknown) 14:03 (units (unkno wn) date) unknown) (unknown) (no (unknown) (unknown) 6cc including 2cc (units (unknown) date) or 80 mg of Kenalog unknown) combined with 4cc of 0.5% ropivacaine was (unknown) (no (unknown) (unknown) 80 mg intrabursal (units (unknown) date) left shoulder unknown) [id number] 07/10/23 [id number] 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 (unknown) (no (unknown) (unknown) ACCESSION#: (units (un known) date) [id number] EXAM unknown) DATE: 03/29/2017 (unknown) (no (unknown) (unknown) ANAPHYLAXIS (units (un known) date) unknown) (unknown) (no (unknown) (unknown) Abduction (R/L): (units (unknown) date) 07/13 ER(R/L): unknown) 07/13 IR (R/L): 07/13 (unknown) (no (unknown) (unknown) Accompanied by: (units (unknown) date) Self / Same As unknown) Patient (unknown) (no (unknown) (unknown) Active FE (R/L): (units (unknown) date) 160 / 160 Passive FE unknown) (R/L): 160 / 160 (unknown) (no (unknown) (unknown) [facility] at [facility] (unit s (unknown) date) health and unknown) identified to have a possible left biceps tendon (unknown) (no (unknown) (unknown) Administered by: (units (unknown) date) Que Pope DO on unknown) 02/22/22 14:38 (unknown) (no (unknown) (unknown) Age/Sex: 86 / M (units (unknown) date) Date of Service: unknown) (unknown) (no (unknown) (unknown) All other systems (units (unknown) date) reviewed and are unknown) unremarkable except as noted in HPI. (unknown) (no (unknown) (unknown) Allergies (units (unkn own) date) unknown) (unknown) (no (unknown) (unknown) [place] [id number] (unit s (unknown) date) unknown) (unknown) (no (unknown) (unknown) As oral consent, we (units (unknown) date) did review the risks unknown) of the above stated procedure including (unknown) (no (unknown) (unknown) Assessment + Plan (units (unknown) date) unknown) (unknown) (no (unknown) (unknown) Attending Dr: (units ( unknown) date) Que Pope DBenOBen unknown) (unknown) (no (unknown) (unknown) BMI 31.1 (units (unkno wn) date) unknown) (unknown) (no (unknown) (unknown) BP 132/80 (units (unkn own) date) unknown) (unknown) (no (unknown) (unknown) Back pain, (units (unk nown) date) sacroiliac unknown) (unknown) (no (unknown) (unknown) Biceps (R/L):07/13 / (units (unknown) date) 07/13 Triceps unknown) (R/L):07/13 Intrinsics (unknown) (no (unknown) (unknown) Blood Pressure (units (unknown) date) Location Rt brachial unknown) (unknown) (no (unknown) (unknown) C-Spine Tenderness: (unit s (unknown) date) non-tender unknown) Spurling's Test (R/L): neg / neg (unknown) (no (unknown) (unknown) C-spine Flexion: 45 (unit s (unknown) date) C-spine Extension: unknown) 45 (unknown) (no (unknown) (unknown) C-spine Right (units ( unknown) date) Rotation: 70 C-spine unknown) Left Rotation: 70 (unknown) (no (unknown) (unknown) CONTRAST MEDIA: (units (unknown) date) STATION ID: [id number] unknown) (unknown) (no (unknown) (unknown) Chief Complaint (units (unknown) date) unknown) (unknown) (no (unknown) (unknown) Chief Complaint: (units (unknown) date) left shoulder pain unknown) s/p injury 3 mos prior October (unknown) (no (unknown) (unknown) Code(s): M47.27 - (units (unknown) date) Other spondylosis unknown) with radiculopathy, lumbosacral region (unknown) (no (unknown) (unknown) Confirmed 02/22/22] (unit s (unknown) date) unknown) (unknown) (no (unknown) (unknown) Costochondritis (units (unknown) date) unknown) (unknown) (no (unknown) (unknown) Cross Arm (R/L): (units (unknown) date) neg / neg Neer unknown) Impingement Test (R/L): (unknown) (no (unknown) (unknown) : 1935 (units (unknown) date) Acct:[id number] unknown) (unknown) (no (unknown) (unknown) DTR UE (R/L): (units ( unknown) date) Biceps: (2+/2+); unknown) Triceps: (2+/2+) (unknown) (no (unknown) (unknown) 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 unknown) (unknown) (no (unknown) (unknown) Details: (units (unkno wn) date) unknown) (unknown) (no (unknown) (unknown) Dictated by: Chris (units (unknown) date) Roque Duong M.D. on unknown) 03/29/2017 at 12:08 (unknown) (no (unknown) (unknown) Documented By: (units (unknown) date) Que Pope D.O. unknown) 02/22/22 1323 (unknown) (no (unknown) (unknown) Dose Route Admin (units (unknown) date) Location Lot Number unknown) Expiration Date NDC (unknown) (no (unknown) (unknown) Draft (units (unkno wn) date) unknown) (unknown) (no (unknown) (unknown) Durolane injection (units (unknown) date) 09/22/2018 with good unknown) relief, urinary frequency and urgency, (unknown) (no (unknown) (unknown) Dyslipidemia (units (u nknown) date) unknown) (unknown) (no (unknown) (unknown) Endorses COPD, (units (unknown) date) restless legs unknown) syndrome, TIA, bilateral knee DJD status post (unknown) (no (unknown) (unknown) Exam Narrative (units (unknown) date) unknown) (unknown) (no (unknown) (unknown) Exam Narrative: (units (unknown) date) unknown) (unknown) (no (unknown) (unknown) Exam (units (unkno wn) date) unknown) (unknown) (no (unknown) (unknown) External Rotation (units (unknown) date) at side (R/L): 45 / unknown) 45 Internal Rotation (R/L): (unknown) (no (unknown) (unknown) FLUORO TIME: (units (u nknown) date) unknown) (unknown) (no (unknown) (unknown) Facet arthropathy, (units (unknown) date) lumbar unknown) (unknown) (no (unknown) (unknown) Family History (units (unknown) date) (Reviewed 02/22/22 @ unknown) 14:38 by Que Pope DO) (unknown) (no (unknown) (unknown) Father (units (unknown) date) Aorta aneurysm unknown) (unknown) (no (unknown) (unknown) Gait: normal (units (u nknown) date) Coordination: normal unknown) (unknown) (no (unknown) (unknown) General Appearance: (unit s (unknown) date) Well-nourished, well unknown) developed in no acute distress (unknown) (no (unknown) (unknown) Global amnesia (units (unknown) date) unknown) (unknown) (no (unknown) (unknown) H/O vein stripping (units (unknown) date) unknown) (unknown) (no (unknown) (unknown) HERE FOR LEFT (units ( unknown) date) SHOULDER PAIN unknown) (unknown) (no (unknown) (unknown) HPI (units (unkno wn) date) unknown) (unknown) (no (unknown) (unknown) Hernandez Test (R/L): (unit s (unknown) date) neg / neg unknown) Scapulothoracic motion (R/L): 2:1 (unknown) (no (unknown) (unknown) He reports (units (unk nown) date) otherwise feeling unknown) well maintain the Covid19 social restrictions (unknown) (no (unknown) (unknown) Height 5 ft 11 in (units (unknown) date) unknown) (unknown) (no (unknown) (unknown) Herniated nucleus (units (unknown) date) pulposus, 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 (unknown) (no (unknown) (unknown) Intake Clinical (units (unknown) date) Staff unknown) (unknown) (no (unknown) (unknown) Intake Note: (units (u nknown) date) unknown) (unknown) (no (unknown) (unknown) Intake performed (units (unknown) date) by: Christine Becerril unknown) (unknown) (no (unknown) (unknown) Intake (units (unkno wn) date) unknown) (unknown) (no (unknown) (unknown) Interventions/Proc. 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 Loss of disc signal is seen at this (unknown) (no (unknown) (unknown) L2-L3: Mild loss of (unit s (unknown) date) disc height is seen. unknown) Loss of disc signal is seen. Endplate (unknown) (no (unknown) (unknown) L3-L4: The disc (units (unknown) date) height is unknown) well-preserved. Loss of disc signal is seen at this (unknown) (no (unknown) (unknown) L4-L5: Mild loss of (unit s (unknown) date) disc height is seen. unknown) Loss of disc signal is seen. Moderate (unknown) (no (unknown) (unknown) L5-S1: Mild loss of (unit s (unknown) date) disc height is seen. unknown) Loss of disc signal is seen. 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 These degenerative changes are (unknown) (no (unknown) (unknown) Moderate disc bulge (unit s (unknown) date) is seen, which is unknown) eccentric to the left. Mild facet joint (unknown) (no (unknown) (unknown) Moderate to (units (un known) date) prominent disc bulge unknown) is seen, which is eccentric to the right. Mild (unknown) (no (unknown) (unknown) Mother No (units (unknown) date) problems noted. unknown) (unknown) (no (unknown) (unknown) Multilevel spinal (units (unknown) date) stenosis unknown) (unknown) (no (unknown) (unknown) Multiple levels of (units (unknown) date) degenerative change unknown) are seen, several of which are progressed (unknown) (no (unknown) (unknown) Neuro: System (units ( unknown) date) reviewed and no unknown) additional complaints, except as documented. (unknown) (no (unknown) (unknown) Kenly's Test (units (unknown) date) (R/L): neg / neg unknown) Yergusons Test (R/L): neg / neg (unknown) (no (unknown) (unknown) ORD. : QUE (units (unknown) date) JULIANNE Sears CC: unknown) (unknown) (no (unknown) (unknown) Objective Data (units (unknown) date) unknown) (unknown) (no (unknown) (unknown) Objective Data: (units (unknown) date) unknown) (unknown) (no (unknown) (unknown) Obstructive sleep (units (unknown) date) apnea of adult unknown) (unknown) (no (unknown) (unknown) Office Meds (units (un known) date) unknown) (unknown) (no (unknown) (unknown) Orders (units (unkno wn) date) unknown) (unknown) (no (unknown) (unknown) Orders: (units (unkno wn) date) unknown) (unknown) (no (unknown) (unknown) Orientation: (units (u nknown) date) Oriented to person, unknown) place and time. 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 Qualified Code(s): (unknown) (no (unknown) (unknown) Oxygen Delivery (units (unknown) date) Method room air unknown) (unknown) (no (unknown) (unknown) PATIENT NAME: (units ( unknown) date) REGINALD MELTON unknown) : 1935 (unknown) (no (unknown) (unknown) PFSH (units (unkno wn) date) unknown) (unknown) (no (unknown) (unknown) Pain Scale (units (unk nown) date) unknown) (unknown) (no (unknown) (unknown) Pain Visit (units (unk nown) date) unknown) (unknown) (no (unknown) (unknown) Patient: Linh (units (unknown) date) Reginald Ye MR#: unknown) (unknown) (no (unknown) (unknown) Penicillins (units (un known) date) [PENICILLINS] unknown) Adverse Reaction (Severe, Verified 02/22/22 13:25) (unknown) (no (unknown) (unknown) Performing (units (unk nown) date) Provider: Que unknown) DO Julianne (unknown) (no (unknown) (unknown) Prostate cancer (units (unknown) date) unknown) (unknown) (no (unknown) (unknown) Pulse 73 (units (unkno wn) date) unknown) (unknown) (no (unknown) (unknown) Pulse Oximetry (%) (units (unknown) date) 97 unknown) (unknown) (no (unknown) (unknown) Pulse Source (units (u nknown) date) Monitor unknown) (unknown) (no (unknown) (unknown) Qualifiers: (units (un known) date) unknown) (unknown) (no (unknown) (unknown) ROS Narrative (units ( unknown) date) unknown) (unknown) (no (unknown) (unknown) ROS Narrative: (units (unknown) date) unknown) (unknown) (no (unknown) (unknown) ROS (units (unkno wn) date) unknown) (unknown) (no (unknown) (unknown) Reason For Visit (units (unknown) date) unknown) (unknown) (no (unknown) (unknown) Resprionics Remstar (unit s (unknown) date) CPAP #1 ea 07/07/18 unknown) [History Confirmed 02/22/22] (unknown) (no (unknown) (unknown) Restless legs (units ( unknown) date) syndrome (RLS) unknown) (unknown) (no (unknown) (unknown) Sensation: (units (unk nown) date) Subjective normal unknown) median / ulnar / radial / axillary sensation (unknown) (no (unknown) (unknown) Shoulder Exam (units ( unknown) date) (Bilateral) unknown) (unknown) (no (unknown) (unknown) Signed By: (units (unk nown) date) unknown) (unknown) (no (unknown) (unknown) Smoking Status: (units (unknown) date) Former smoker unknown) (unknown) (no (unknown) (unknown) Social History (units (unknown) date) unknown) (unknown) (no (unknown) (unknown) Speeds (R/L): neg / (unit s (unknown) date) neg Apprehension unknown) (R/L): neg /neg (unknown) (no (unknown) (unknown) Spinal (units (unkno wn) date) osteoarthritis unknown) complication: with radiculopathy Qualified (unknown) (no (unknown) (unknown) Status: Acute (units ( unknown) date) unknown) (unknown) (no (unknown) (unknown) Status: Chronic (units (unknown) date) unknown) (unknown) (no (unknown) (unknown) Surgical History (units (unknown) date) (Reviewed 02/22/22 @ unknown) 14:38 by Que Pope DO) (unknown) (no (unknown) (unknown) TIA (transient (units (unknown) date) ischemic attack) unknown) (unknown) (no (unknown) (unknown) Temp 98.1 F (units (un known) date) unknown) (unknown) (no (unknown) (unknown) Temp Source (units (un known) date) Temporal Artery Scan unknown) (unknown) (no (unknown) (unknown) [facility] (unit s (unknown) date) Management unknown) (unknown) (no (unknown) (unknown) The left shoulder (units (unknown) date) was prepped in usual unknown) sterile fashion with the use of (unknown) (no (unknown) (unknown) There is a degree (units (unknown) date) of impingement seen unknown) upon the exiting nerve roots. There is at (unknown) (no (unknown) (unknown) There is (units (unkno wn) date) unknown) (unknown) (no (unknown) (unknown) They referred by did (unit s (unknown) date) a post injection unknown) instructions sheet as well as pain like to (unknown) (no (unknown) (unknown) This note may have (units (unknown) date) been all or unknown) partially generated using voice recognition (unknown) (no (unknown) (unknown) Tobacco + Substance (unit s (unknown) date) Use unknown) (unknown) (no (unknown) (unknown) Tobacco Status (units (unknown) date) unknown) (unknown) (no (unknown) (unknown) UE Skin (R/L): No (units (unknown) date) rashes or lesions. unknown) (unknown) (no (unknown) (unknown) Vasculature: 2+ (units (unknown) date) radial pulse unknown) bilaterally. (unknown) (no (unknown) (unknown) Visit Reasons: LEFT (unit s (unknown) date) SHOULDER PAIN, unknown) SHOULDER PAIN (unknown) (no (unknown) (unknown) Vitals (units (unkno wn) date) unknown) (unknown) (no (unknown) (unknown) Weight 223 lb (units ( unknown) date) unknown) (unknown) (no (unknown) (unknown) Xiphoid pain (units (u nknown) date) unknown) (unknown) (no (unknown) (unknown) alcohol intake: (units (unknown) date) current unknown) (unknown) (no (unknown) (unknown) amlodipine 5 mg (units (unknown) date) tablet 5 mg PO DAILY unknown) 11/16/20 [History Confirmed 02/22/22] (unknown) (no (unknown) (unknown) aspirin 81 mg (units ( unknown) date) tablet,delayed unknown) release 81 mg PO QPM ##0 02/25/08 [History (unknown) (no (unknown) (unknown) atorvastatin 80 mg (units (unknown) date) tablet 80 mg PO unknown) DAILY 04/17/21 [History Confirmed 02/22/22] (unknown) (no (unknown) (unknown) bilateral neural (units (unknown) date) unknown) (unknown) (no (unknown) (unknown) bilaterally (units (un known) date) unknown) (unknown) (no (unknown) (unknown) can be seen, (units (un known) date) including a unknown) Schmorl's node at the inferior endplate of L2. Moderate (unknown) (no (unknown) (unknown) caregiver/support (units (unknown) date) person: No unknown) (unknown) (no (unknown) (unknown) central canal (units ( unknown) date) narrowing is seen. unknown) The previously described right lateral recess (unknown) (no (unknown) (unknown) central canal (units ( unknown) date) narrowing is seen. unknown) When comparison is made with the prior images, (unknown) (no (unknown) (unknown) chlorhexidine (units ( unknown) date) scrub. Visualization unknown) of the joint space as well as the injection (unknown) (no (unknown) (unknown) clobetasol 0.05 % (units (unknown) date) topical ointment 1 g unknown) topical BEDTIME 01/22/22 [History (unknown) (no (unknown) (unknown) compared to 2012. (units (unknown) date) unknown) (unknown) (no (unknown) (unknown) compared to the (units (unknown) date) prior MRI. unknown) (unknown) (no (unknown) (unknown) details: rocky Ellison, (units (unknown) date) lives in [place] unknown) on [place] (unknown) (no (unknown) (unknown) disc (units (unkno wn) date) unknown) (unknown) (no (unknown) (unknown) doing quite well (units (unknown) date) since the unknown) injection.? He does report recent approximately 1 (unknown) (no (unknown) (unknown) duloxetine 40 mg (units (unknown) date) capsule,delayed unknown) release 40 mg PO DAILY 06/26/21 [History (unknown) (no (unknown) (unknown) epinephrine (units (un known) date) [EPINEPHRINE] unknown) Allergy (Severe, Verified 02/22/22 13:25) (unknown) (no (unknown) (unknown) evaluation (units (unk nown) date) treatment post unknown) injection.? He reports he has minimal if any low back (unknown) (no (unknown) (unknown) excellent condition (unit s (unknown) date) under their own unknown) power. (unknown) (no (unknown) (unknown) extrusion has (units ( unknown) date) resolved. unknown) (unknown) (no (unknown) (unknown) facet hypertrophy (units (unknown) date) is seen. There is unknown) associated moderate hypertrophy of the (unknown) (no (unknown) (unknown) findings are (units (u nknown) date) stable. unknown) (unknown) (no (unknown) (unknown) foraminal narrowing (units (unknown) date) is seen. These unknown) degenerative changes have progressed compared (unknown) (no (unknown) (unknown) generalized disc (units (unknown) date) bulge is seen. unknown) [id number] facet hypertrophy is seen. (unknown) (no (unknown) (unknown) generalized disc (units (unknown) date) bulge is seen. unknown) Moderate facet joint hypertrophy is seen. There (unknown) (no (unknown) (unknown) have occurred. If (units (unknown) date) there are any unknown) questions, please contact the Medical Records (unknown) (no (unknown) (unknown) history of prostate (unit s (unknown) date) CA. unknown) (unknown) (no (unknown) (unknown) household members: (units (unknown) date) spouse unknown) (unknown) (no (unknown) (unknown) housing: house (units (unknown) date) unknown) (unknown) (no (unknown) (unknown) hypertrophy is (units (unknown) date) unknown) (unknown) (no (unknown) (unknown) infiltrated without (unit s (unknown) date) incident. Patient unknown) tolerated the procedure well without (unknown) (no (unknown) (unknown) intravenous drug (units (unknown) date) use, sustained unknown) glucocorticoid use, osteoporosis, or a focal (unknown) (no (unknown) (unknown) irregularity (units (u nknown) date) unknown) (unknown) (no (unknown) (unknown) is (units (unkno wn) date) unknown) (unknown) (no (unknown) (unknown) least (units (unkno wn) date) unknown) (unknown) (no (unknown) (unknown) level. (units (unkno wn) date) unknown) (unknown) (no (unknown) (unknown) ligamentum flavum. (units (unknown) date) Moderate to severe unknown) bilateral neural foraminal narrowing is (unknown) (no (unknown) (unknown) lisinopril 5 mg (units (unknown) date) tablet 5 mg PO DAILY unknown) 05/23/18 [History Confirmed 02/22/22] (unknown) (no (unknown) (unknown) lives (units (unkno wn) date) independently: Yes unknown) (unknown) (no (unknown) (unknown) marital status: (units (unknown) date) unknown) (unknown) (no (unknown) (unknown) may occur. (units (unk nown) date) Occasional unknown) wrong-word or 'sound-alike' substitutions may have (unknown) (no (unknown) (unknown) moderate central (units (unknown) date) canal narrowing unknown) present. These degenerative changes have (unknown) (no (unknown) (unknown) moderate left-sided (unit s (unknown) date) and mild to moderate unknown) right-sided neural foraminal narrowing (unknown) (no (unknown) (unknown) moderate (units (unkno wn) date) right-sided and mild unknown) left-sided neural foraminal narrowing seen. No (unknown) (no (unknown) (unknown) monitor the relief (units (unknown) date) prior to our unknown) follow-up visit. (unknown) (no (unknown) (unknown) month ago injuring (units (unknown) date) his left shoulder.? unknown) He reports he was evaluated by (unknown) (no (unknown) (unknown) neg / neg (units (unkn own) date) unknown) (unknown) (no (unknown) (unknown) neurological (units (u nknown) date) deficit with unknown) progressive or disabling symptoms. (unknown) (no (unknown) (unknown) not limited to (units (unknown) date) bleeding, infection, unknown) allergic reaction, nerve injury, stroke, (unknown) (no (unknown) (unknown) obtained today (units (unknown) date) without guarantees unknown) or assurances of complete relief applied. (unknown) (no (unknown) (unknown) occurred due to the (unit s (unknown) date) inherent limitations unknown) of voice recognition software. Please (unknown) (no (unknown) (unknown) of this (units (unkno wn) date) evaluation.?He does unknown) report x-rays were taken of the left shoulder at the (unknown) (no (unknown) (unknown) omeprazole 20 mg (units (unknown) date) capsule,delayed unknown) release 20 mg PO BEDTIME 09/05/18 [History (unknown) (no (unknown) (unknown) or (units (unkno wn) date) immunosuppressive unknown) therapy, previous or current cancer diagnosis, history of (unknown) (no (unknown) (unknown) pain and left lower (units (unknown) date) extremity symptoms unknown) at this time.? He does report he has been (unknown) (no (unknown) (unknown) palpated. A 25 gauge (unit s (unknown) date) 1 advancing was unknown) atraumatically introduced and advanced into (unknown) (no (unknown) (unknown) paralysis and (unit s (unknown) date) and the patient unknown) elected to proceed. Informed consent was (unknown) (no (unknown) (unknown) performed on (units (u nknown) date) 2021.? He is unknown) accompanied today by his for further (unknown) (no (unknown) (unknown) progressed (units (unk nown) date) unknown) (unknown) (no (unknown) (unknown) prominent disc (units (unknown) date) bulge is seen, which unknown) is eccentric to the right. Moderate (unknown) (no (unknown) (unknown) quite active using (units (unknown) date) his [place] unknown) brace while active.? He reports he has been (unknown) (no (unknown) (unknown) read the note (units ( unknown) date) carefully and unknown) recognize, using context, where these substitutions (unknown) (no (unknown) (unknown) review at the time (units (unknown) date) of this visit.? unknown) (unknown) (no (unknown) (unknown) ropinirole 0.5 mg (units (unknown) date) tablet 1.5 mg PO QPM unknown) 05/23/18 [History Confirmed 02/22/22] (unknown) (no (unknown) (unknown) rupture.? He was (units (unknown) date) treated unknown) conservatively with physical therapy as well as a brace (unknown) (no (unknown) (unknown) seen. (units (unkno wn) date) [id number] unknown) bilateral neural foraminal narrowing is seen. No (unknown) (no (unknown) (unknown) seen. (units (unkno wn) date) unknown) (unknown) (no (unknown) (unknown) significant (units (un known) date) unknown) (unknown) (no (unknown) (unknown) signs simply (units (u nknown) date) complications noting unknown) significant relief prior to dismissal in (unknown) (no (unknown) (unknown) software. 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 unknown) Once again these are not available for my (unknown) (no (unknown) (unknown) to 2012. (units (unkno wn) date) unknown) (unknown) (no (unknown) (unknown) to his left (units (un known) date) shoulder.? These unknown) notes are not available for my review at the time (unknown) (no (unknown) (unknown) to (units (unkno wn) date) unknown) (unknown) (no (unknown) (unknown) tomoderate (units (unk nown) date) unknown) (unknown) (no (unknown) (unknown) was carried out (units (unknown) date) under ultrasound unknown) guidance. The acromial humeral interval was (unknown) (no (unknown) (unknown) without cough fever (unit s (unknown) date) fatigue at this unknown) time.? He has been fully vaccinated. 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: (unknown) (no (unknown) (unknown) (2) Herniated (units ( unknown) date) nucleus pulposus, unknown) L3-4 left: (unknown) (no (unknown) (unknown) (3) (units (unkno wn) date) Costochondritis: unknown) (unknown) (no (unknown) (unknown) (4) Facet (units (unkn own) date) arthropathy, lumbar: unknown) (unknown) (no (unknown) (unknown) (5) Lumbosacral (units (unknown) date) spondylosis: unknown) (unknown) (no (unknown) (unknown) (6) Multilevel (units (unknown) date) spinal stenosis: unknown) (unknown) (no (unknown) (unknown) (7) Herniated (units ( unknown) date) nucleus pulposus, unknown) L5-S1: (unknown) (no (unknown) (unknown) (8) 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: (unknown) (no (unknown) (unknown) (R/L): 07/13 (units (unknown) date) unknown) (unknown) (no (unknown) (unknown) / 2:1 (units (unkno wn) date) unknown) (unknown) (no (unknown) (unknown) / 07/13 (units (unkno wn) date) unknown) (unknown) (no (unknown) (unknown) 02/22/22 1445 (units ( unknown) date) unknown) (unknown) (no (unknown) (unknown) 02/22/22 (units (unkno wn) date) unknown) (unknown) (no (unknown) (unknown) 12:05 (units (unkno wn) date) unknown) (unknown) (no (unknown) (unknown) 14:03 (units (unkno wn) date) unknown) (unknown) (no (unknown) (unknown) 6cc including 2cc (units (unknown) date) or 80 mg of Kenalog unknown) combined with 4cc of 0.5% ropivacaine was (unknown) (no (unknown) (unknown) 80 mg intrabursal (units (unknown) date) left shoulder unknown) [id number] 07/10/23 [id number] 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 (unknown) (no (unknown) (unknown) ACCESSION#: (units (un known) date) [id number] EXAM unknown) DATE: 03/29/2017 (unknown) (no (unknown) (unknown) ANAPHYLAXIS (units (un known) date) unknown) (unknown) (no (unknown) (unknown) Abduction (R/L): (units (unknown) date) 07/13 ER(R/L): unknown) 07/13 IR (R/L): 07/13 (unknown) (no (unknown) (unknown) Accompanied by: (units (unknown) date) Self / Same As unknown) Patient (unknown) (no (unknown) (unknown) Active FE (R/L): (units (unknown) date) 160 / 160 Passive FE unknown) (R/L): 160 / 160 (unknown) (no (unknown) (unknown) Additionally we did (unit s (unknown) date) review his bilateral unknown) knee DJD.? He had last had Durolane (unknown) (no (unknown) (unknown) [facility] (unit s (unknown) date) health and unknown) identified to have a possible left biceps tendon (unknown) (no (unknown) (unknown) Administered by: (units (unknown) date) Que Pope DO on unknown) 02/22/22 14:38 (unknown) (no (unknown) (unknown) Age/Sex: 86 / M (units (unknown) date) Date of Service: unknown) (unknown) (no (unknown) (unknown) All of his (units (unk nown) date) questions were unknown) answered to the best my ability he is in agreement (unknown) (no (unknown) (unknown) All other systems (units (unknown) date) reviewed and are unknown) unremarkable except as noted in HPI. (unknown) (no (unknown) (unknown) Allergies (units (unkn own) date) unknown) (unknown) (no (unknown) (unknown) [place] [id number] (unit s (unknown) date) unknown) (unknown) (no (unknown) (unknown) As oral consent, we (units (unknown) date) did review the risks unknown) of the above stated procedure including (unknown) (no (unknown) (unknown) Assessment + Plan (units (unknown) date) unknown) (unknown) (no (unknown) (unknown) Assessment and (units (unknown) date) Plan: unknown) (unknown) (no (unknown) (unknown) At present he is (units (unknown) date) currently rehabbing unknown) his left shoulder with a recent injury (unknown) (no (unknown) (unknown) Attending Dr: (units ( unknown) date) Que Pope D.O. unknown) (unknown) (no (unknown) (unknown) BMI 31.1 (units (unkno wn) date) unknown) (unknown) (no (unknown) (unknown) BP 132/80 (units (unkn own) date) unknown) (unknown) (no (unknown) (unknown) Back pain, (units (unk nown) date) sacroiliac unknown) (unknown) (no (unknown) (unknown) Biceps (R/L):07/13 / (units (unknown) date) 07/13 Triceps unknown) (R/L):07/13 / 07/13 Intrinsics (unknown) (no (unknown) (unknown) Blood Pressure (units (unknown) date) Location Rt brachial unknown) (unknown) (no (unknown) (unknown) C-Spine Tenderness: (unit s (unknown) date) non-tender unknown) Spurling's Test (R/L): neg / neg (unknown) (no (unknown) (unknown) C-spine Flexion: 45 (unit s (unknown) date) C-spine Extension: unknown) 45 (unknown) (no (unknown) (unknown) C-spine Right (units ( unknown) date) Rotation: 70 C-spine unknown) Left Rotation: 70 (unknown) (no (unknown) (unknown) CONTRAST MEDIA: (units (unknown) date) STATION ID: [id number] unknown) (unknown) (no (unknown) (unknown) Chief Complaint (units (unknown) date) unknown) (unknown) (no (unknown) (unknown) Chief Complaint: (units (unknown) date) left shoulder pain unknown) s/p injury 3 mos prior October (unknown) (no (unknown) (unknown) Code(s): M47.27 - (units (unknown) date) Other spondylosis unknown) with radiculopathy, lumbosacral region (unknown) (no (unknown) (unknown) Confirmed 02/22/22] (unit s (unknown) date) unknown) (unknown) (no (unknown) (unknown) Costochondritis (units (unknown) date) unknown) (unknown) (no (unknown) (unknown) Cross Arm (R/L): (units (unknown) date) neg / neg [place] unknown) Impingement Test (R/L): (unknown) (no (unknown) (unknown) : 1935 (units (unknown) date) Acct:[id number] unknown) (unknown) (no (unknown) (unknown) DTR UE (R/L): (units ( unknown) date) Biceps: (2+/2+); unknown) Triceps: (2+/2+) (unknown) (no (unknown) (unknown) 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 unknown) (unknown) (no (unknown) (unknown) Details: (units (unkno wn) date) unknown) (unknown) (no (unknown) (unknown) Dictated by: Chris (units (unknown) date) Roque Duong M.D. on unknown) 03/29/2017 at 12:08 (unknown) (no (unknown) (unknown) Documented By: (units (unknown) date) Que Pope D.O. unknown) 02/22/22 1323 (unknown) (no (unknown) (unknown) Dose Route Admin (units (unknown) date) Location Lot Number unknown) Expiration Date NDC (unknown) (no (unknown) (unknown) Durolane injection (units (unknown) date) 09/22/2018 with good unknown) relief, urinary frequency and urgency, (unknown) (no (unknown) (unknown) Dyslipidemia (units (u nknown) date) unknown) (unknown) (no (unknown) (unknown) Endorses COPD, (units (unknown) date) restless legs unknown) syndrome, TIA, bilateral knee DJD status post (unknown) (no (unknown) (unknown) Exam Narrative (units (unknown) date) unknown) (unknown) (no (unknown) (unknown) Exam Narrative: (units (unknown) date) unknown) (unknown) (no (unknown) (unknown) Exam (units (unkno wn) date) unknown) (unknown) (no (unknown) (unknown) External Rotation (units (unknown) date) at side (R/L): 45 / unknown) 45 Internal Rotation (R/L): (unknown) (no (unknown) (unknown) FLUORO TIME: (units (u nknown) date) unknown) (unknown) (no (unknown) (unknown) Facet arthropathy, (units (unknown) date) lumbar unknown) (unknown) (no (unknown) (unknown) Family History (units (unknown) date) (Reviewed 02/22/22 @ unknown) 14:38 by Que Pope DO) (unknown) (no (unknown) (unknown) Father (units (unknown) date) Aorta aneurysm unknown) (unknown) (no (unknown) (unknown) Gait: normal (units (u nknown) date) Coordination: normal unknown) (unknown) (no (unknown) (unknown) General Appearance: (unit s (unknown) date) Well-nourished, well unknown) developed in no acute distress (unknown) (no (unknown) (unknown) Global amnesia (units (unknown) date) unknown) (unknown) (no (unknown) (unknown) H/O vein stripping (units (unknown) date) unknown) (unknown) (no (unknown) (unknown) HERE FOR LEFT (units ( unknown) date) SHOULDER PAIN unknown) (unknown) (no (unknown) (unknown) HPI (units (unkno wn) date) unknown) (unknown) (no (unknown) (unknown) Hernandez Test (R/L): (unit s (unknown) date) neg / neg unknown) Scapulothoracic motion (R/L): 2:1 (unknown) (no (unknown) (unknown) He is status post (units (unknown) date) left L3-4 unknown) transforaminal NAOMI performed on 10/31/2021 with good (unknown) (no (unknown) (unknown) He reports (units (unk nown) date) otherwise feeling unknown) well maintain the Covid19 social restrictions (unknown) (no (unknown) (unknown) Height 5 ft 11 in (units (unknown) date) unknown) (unknown) (no (unknown) (unknown) Herniated nucleus (units (unknown) date) pulposus, 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 (unknown) (no (unknown) (unknown) Intake Clinical (units (unknown) date) Staff unknown) (unknown) (no (unknown) (unknown) Intake Note: (units (u nknown) date) unknown) (unknown) (no (unknown) (unknown) Intake performed (units (unknown) date) by: Christine Becerril unknown) (unknown) (no (unknown) (unknown) Intake (units (unkno wn) date) unknown) (unknown) (no (unknown) (unknown) Interventions/Proc. 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 Loss of disc signal is seen at this (unknown) (no (unknown) (unknown) L2-L3: Mild loss of (unit s (unknown) date) disc height is seen. unknown) Loss of disc signal is seen. Endplate (unknown) (no (unknown) (unknown) L3-L4: The disc (units (unknown) date) height is unknown) well-preserved. Loss of disc signal is seen at this (unknown) (no (unknown) (unknown) L4-L5: Mild loss of (unit s (unknown) date) disc height is seen. unknown) Loss of disc signal is seen. Moderate (unknown) (no (unknown) (unknown) L5-S1: Mild loss of (unit s (unknown) date) disc height is seen. unknown) Loss of disc signal is seen. Moderate (unknown) (no (unknown) (unknown) Laterality: (units (un known) date) bilateral unknown) Osteoarthritis type: primary Qualified Code(s): (unknown) (no (unknown) (unknown) Loc: PAIN (units (unkn own) date) unknown) (unknown) (no (unknown) (unknown) Lumbosacral (units (un known) date) spondylosis unknown) (unknown) (no (unknown) (unknown) Lymph UE (R/L): No (units (unknown) date) axillary unknown) lymphadenopathy (unknown) (no (unknown) (unknown) [id number] (units (unk nown) date) unknown) (unknown) (no (unknown) (unknown) M17.0 - Bilateral (units (unknown) date) primary unknown) osteoarthritis of knee (unknown) (no (unknown) (unknown) MODALITY: MR (units (u nknown) date) PATIENT TYPE: Out unknown) (unknown) (no (unknown) (unknown) (units (unknown) date) ACCOUNT #: unknown) [id number] (unknown) (no (unknown) (unknown) MSK: System (units (un known) date) reviewed and no unknown) additional complaints, except as documented. 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) unknown) (unknown) (no (unknown) (unknown) Isaías did (units (u nknown) date) tolerate the unknown) procedure well noting some relief prior to dismissal (unknown) (no (unknown) (unknown) Isaías seen today (unit s (unknown) date) in follow-up status unknown) post left L3-4 transforaminal NAOMI (unknown) (no (unknown) (unknown) Reginald/Isaías and (unit s (unknown) date) his [place] and I unknown) discussed at length his underlying (unknown) (no (unknown) (unknown) Medical History (units (unknown) date) (Reviewed 02/22/22 @ unknown) 14:38 by Que Pope DO) (unknown) (no (unknown) (unknown) 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 These degenerative changes are (unknown) (no (unknown) (unknown) Moderate disc bulge (unit s (unknown) date) is seen, which is unknown) eccentric to the left. Mild facet joint (unknown) (no (unknown) (unknown) Moderate to (units (un known) date) prominent disc bulge unknown) is seen, which is eccentric to the right. Mild (unknown) (no (unknown) (unknown) Mother No (units (unknown) date) problems noted. unknown) (unknown) (no (unknown) (unknown) Multilevel spinal (units (unknown) date) stenosis unknown) (unknown) (no (unknown) (unknown) Multiple levels of (units (unknown) date) degenerative change unknown) are seen, several of which are progressed (unknown) (no (unknown) (unknown) Neuro: System (units ( unknown) date) reviewed and no unknown) additional complaints, except as documented. (unknown) (no (unknown) (unknown) Kenly's Test (units (unknown) date) (R/L): neg / neg unknown) Yergusons Test (R/L): neg / neg (unknown) (no (unknown) (unknown) ORDBen SHANNON: QUE (units (unknown) date) JULIANNE Sears CC: unknown) (unknown) (no (unknown) (unknown) Objective Data (units (unknown) date) unknown) (unknown) (no (unknown) (unknown) Objective Data: (units (unknown) date) unknown) (unknown) (no (unknown) (unknown) Obstructive sleep (units (unknown) date) apnea of adult unknown) (unknown) (no (unknown) (unknown) Office Meds (units (un known) date) unknown) (unknown) (no (unknown) (unknown) Orders (units (unkno wn) date) unknown) (unknown) (no (unknown) (unknown) Orders: (units (unkno wn) date) unknown) (unknown) (no (unknown) (unknown) Orientation: (units (u nknown) date) Oriented to person, unknown) place and time. Mood / Affect: Calm (unknown) (no (unknown) (unknown) Oxygen Delivery (units (unknown) date) Method room air unknown) (unknown) (no (unknown) (unknown) PATIENT NAME: (units ( unknown) date) LINH REGINALD Tapia. unknown) : 1935 (unknown) (no (unknown) (unknown) PFSH (units (unkno wn) date) unknown) (unknown) (no (unknown) (unknown) Pain Scale (units (unk nown) date) unknown) (unknown) (no (unknown) (unknown) Pain Visit (units (unk nown) date) unknown) (unknown) (no (unknown) (unknown) Patient: Linh (units (unknown) date) Reginald Ye MR#: unknown) (unknown) (no (unknown) (unknown) Penicillins (units (un known) date) [PENICILLINS] unknown) Adverse Reaction (Severe, Verified 02/22/22 13:25) (unknown) (no (unknown) (unknown) Performing (units (unk nown) date) Provider: Que unknown) DO Julianne (unknown) (no (unknown) (unknown) Prostate cancer (units (unknown) date) unknown) (unknown) (no (unknown) (unknown) Pulse 73 (units (unkno wn) date) unknown) (unknown) (no (unknown) (unknown) Pulse Oximetry (%) (units (unknown) date) 97 unknown) (unknown) (no (unknown) (unknown) Pulse Source (units (u nknown) date) Monitor unknown) (unknown) (no (unknown) (unknown) Qualifiers: (units (un known) date) unknown) (unknown) (no (unknown) (unknown) ROS Narrative (units ( unknown) date) unknown) (unknown) (no (unknown) (unknown) ROS Narrative: (units (unknown) date) unknown) (unknown) (no (unknown) (unknown) ROS (units (unkno wn) date) unknown) (unknown) (no (unknown) (unknown) Reason For Visit (units (unknown) date) unknown) (unknown) (no (unknown) (unknown) Resprionics Remstar (unit s (unknown) date) CPAP #1 ea 07/07/18 unknown) [History Confirmed 02/22/22] (unknown) (no (unknown) (unknown) Restless legs (units ( unknown) date) syndrome (RLS) unknown) (unknown) (no (unknown) (unknown) Sensation: (units (unk nown) date) Subjective normal unknown) median / ulnar / radial / axillary sensation (unknown) (no (unknown) (unknown) Shoulder Exam (units ( unknown) date) (Bilateral) unknown) (unknown) (no (unknown) (unknown) Signed By: (units (unk nown) date) <Electronically unknown) signed by Que Pope D.O.> (unknown) (no (unknown) (unknown) Signed (units (unkno wn) date) unknown) (unknown) (no (unknown) (unknown) Smoking Status: (units (unknown) date) Former smoker unknown) (unknown) (no (unknown) (unknown) Social History (units (unknown) date) unknown) (unknown) (no (unknown) (unknown) Speeds (R/L): neg / (unit s (unknown) date) neg Apprehension unknown) (R/L): neg /neg (unknown) (no (unknown) (unknown) Spinal (units (unkno wn) date) osteoarthritis unknown) complication: with radiculopathy Qualified (unknown) (no (unknown) (unknown) Status: Acute (units ( unknown) date) unknown) (unknown) (no (unknown) (unknown) Status: Chronic (units (unknown) date) unknown) (unknown) (no (unknown) (unknown) Subsequently we did (unit s (unknown) date) review the unknown) above-stated procedure at length and verbal (unknown) (no (unknown) (unknown) Surgical History (units (unknown) date) (Reviewed 02/22/22 @ unknown) 14:38 by Que Pope DO) (unknown) (no (unknown) (unknown) TIA (transient (units (unknown) date) ischemic attack) unknown) (unknown) (no (unknown) (unknown) Temp 98.1 F (units (un known) date) unknown) (unknown) (no (unknown) (unknown) Temp Source (units (un known) date) Temporal Artery Scan unknown) (unknown) (no (unknown) (unknown) [facility] (unit s (unknown) date) Management unknown) (unknown) (no (unknown) (unknown) The left shoulder (units (unknown) date) was prepped in usual unknown) sterile fashion with the use of (unknown) (no (unknown) (unknown) There is a degree (units (unknown) date) of impingement seen unknown) upon the exiting nerve roots. There is at (unknown) (no (unknown) (unknown) There is (units (unkno wn) date) unknown) (unknown) (no (unknown) (unknown) They referred by did (unit s (unknown) date) a post injection unknown) instructions sheet as well as pain like to (unknown) (no (unknown) (unknown) This note may have (units (unknown) date) been all or unknown) partially generated using voice recognition (unknown) (no (unknown) (unknown) Tobacco + Substance (unit s (unknown) date) Use unknown) (unknown) (no (unknown) (unknown) Tobacco Status (units (unknown) date) unknown) (unknown) (no (unknown) (unknown) UE Skin (R/L): No (units (unknown) date) rashes or lesions. unknown) (unknown) (no (unknown) (unknown) Vasculature: 2+ (units (unknown) date) radial pulse unknown) bilaterally. (unknown) (no (unknown) (unknown) Visit Reasons: LEFT (unit s (unknown) date) SHOULDER PAIN, unknown) SHOULDER PAIN (unknown) (no (unknown) (unknown) Vitals (units (unkno wn) date) unknown) (unknown) (no (unknown) (unknown) Weight 223 lb (units ( unknown) date) unknown) (unknown) (no (unknown) (unknown) X-ray studies were (units (unknown) date) performed at the unknown) time of that evaluation but are not (unknown) (no (unknown) (unknown) Xiphoid pain (units (u nknown) date) unknown) (unknown) (no (unknown) (unknown) above stated (units (u nknown) date) procedure including unknown) not limited to bleeding, infection, allergic (unknown) (no (unknown) (unknown) agreement with the (units (unknown) date) above-stated plan. unknown) (unknown) (no (unknown) (unknown) alcohol intake: (units (unknown) date) current unknown) (unknown) (no (unknown) (unknown) amlodipine 5 mg (units (unknown) date) tablet 5 mg PO DAILY unknown) 11/16/20 [History Confirmed 02/22/22] (unknown) (no (unknown) (unknown) approximately 3 (units (unknown) date) months ago when unknown) lifting a trailer tire.? He was evaluated by O (unknown) (no (unknown) (unknown) aspirin 81 mg (units ( unknown) date) tablet,delayed unknown) release 81 mg PO QPM ##0 02/25/08 [History (unknown) (no (unknown) (unknown) atorvastatin 80 mg (units (unknown) date) tablet 80 mg PO unknown) DAILY 04/17/21 [History Confirmed 02/22/22] (unknown) (no (unknown) (unknown) available for my (units (unknown) date) review at this unknown) time.? We did discuss further treatment options (unknown) (no (unknown) (unknown) ay occur. (units (unkn own) date) Occasional unknown) wrong-word or 'sound-alike' substitutions may have (unknown) (no (unknown) (unknown) bilateral neural (units (unknown) date) unknown) (unknown) (no (unknown) (unknown) bilaterally (units (un known) date) unknown) (unknown) (no (unknown) (unknown) can be seen, (units (un known) date) including a unknown) Schmorl's node at the inferior endplate of L2. Moderate (unknown) (no (unknown) (unknown) caregiver/support (units (unknown) date) person: No unknown) (unknown) (no (unknown) (unknown) central canal (units ( unknown) date) narrowing is seen. unknown) The previously described right lateral recess (unknown) (no (unknown) (unknown) central canal (units ( unknown) date) narrowing is seen. unknown) When comparison is made with the prior images, (unknown) (no (unknown) (unknown) chlorhexidine (units ( unknown) date) scrub. Visualization unknown) of the joint space as well as the injection (unknown) (no (unknown) (unknown) clobetasol 0.05 % (units (unknown) date) topical ointment 1 g unknown) topical BEDTIME 01/22/22 [History (unknown) (no (unknown) (unknown) compared to 2012. (units (unknown) date) unknown) (unknown) (no (unknown) (unknown) compared to the (units (unknown) date) prior MRI. unknown) (unknown) (no (unknown) (unknown) consent was (units (un known) date) obtained today, As unknown) oral consent, we did review the risks of the (unknown) (no (unknown) (unknown) details: rocky Ellison, (units (unknown) date) lives in [place] unknown) on [place] (unknown) (no (unknown) (unknown) disc (units (unkno wn) date) unknown) (unknown) (no (unknown) (unknown) discussion with his (units (unknown) date) lack of progress unknown) with physical therapy over the last several (unknown) (no (unknown) (unknown) doing quite well (units (unknown) date) since the unknown) injection.? He does report recent approximately 1 (unknown) (no (unknown) (unknown) duloxetine 40 mg (units (unknown) date) capsule,delayed unknown) release 40 mg PO DAILY 06/26/21 [History (unknown) (no (unknown) (unknown) epinephrine (units (un known) date) [EPINEPHRINE] unknown) Allergy (Severe, Verified 02/22/22 13:25) (unknown) (no (unknown) (unknown) evaluation (units (unk nown) date) treatment post unknown) injection.? He reports he has minimal if any low back (unknown) (no (unknown) (unknown) excellent condition (unit s (unknown) date) under their own unknown) power. (unknown) (no (unknown) (unknown) extrusion has (units ( unknown) date) resolved. unknown) (unknown) (no (unknown) (unknown) facet hypertrophy (units (unknown) date) is seen. There is unknown) associated moderate hypertrophy of the (unknown) (no (unknown) (unknown) findings are (units (u nknown) date) stable. unknown) (unknown) (no (unknown) (unknown) foraminal narrowing (units (unknown) date) is seen. These unknown) degenerative changes have progressed compared (unknown) (no (unknown) (unknown) further (units (unkno wn) date) interventions are unknown) necessary at this time.? He will continue to do his (unknown) (no (unknown) (unknown) generalized disc (units (unknown) date) bulge is seen. unknown) [id number] facet hypertrophy is seen. (unknown) (no (unknown) (unknown) generalized disc (units (unknown) date) bulge is seen. unknown) Moderate facet joint hypertrophy is seen. There (unknown) (no (unknown) (unknown) have occurred. If (units (unknown) date) there are any unknown) questions, please contact the Medical Records (unknown) (no (unknown) (unknown) history of prostate (unit s (unknown) date) CA. unknown) (unknown) (no (unknown) (unknown) home exercise (units ( unknown) date) program as well as unknown) wears [place] brace when lifting. (unknown) (no (unknown) (unknown) household members: (units (unknown) date) spouse unknown) (unknown) (no (unknown) (unknown) housing: house (units (unknown) date) unknown) (unknown) (no (unknown) (unknown) hypertrophy is (units (unknown) date) unknown) (unknown) (no (unknown) (unknown) in excellent (units (u nknown) date) condition own his unknown) own prior. He was given a post-injection (unknown) (no (unknown) (unknown) including possible (units (unknown) date) ultrasound-guided unknown) subacromial injection today. After lengthy (unknown) (no (unknown) (unknown) infiltrated without (unit s (unknown) date) incident. Patient unknown) tolerated the procedure well without (unknown) (no (unknown) (unknown) injections (units (unk nown) date) performed on unknown) 09/22/2018 continues to do quite well.? (unknown) (no (unknown) (unknown) instruction pain (units (unknown) date) like to monitor his unknown) relief. Additionally he will continue with (unknown) (no (unknown) (unknown) intravenous drug (units (unknown) date) use, sustained unknown) glucocorticoid use, osteoporosis, or a focal (unknown) (no (unknown) (unknown) irregularity (units (u nknown) date) unknown) (unknown) (no (unknown) (unknown) is (units (unkno wn) date) unknown) (unknown) (no (unknown) (unknown) least (units (unkno wn) date) unknown) (unknown) (no (unknown) (unknown) level. (units (unkno wn) date) unknown) (unknown) (no (unknown) (unknown) ligamentum flavum. (units (unknown) date) Moderate to severe unknown) bilateral neural foraminal narrowing is (unknown) (no (unknown) (unknown) lisinopril 5 mg (units (unknown) date) tablet 5 mg PO DAILY unknown) 05/23/18 [History Confirmed 02/22/22] (unknown) (no (unknown) (unknown) lives (units (unkno wn) date) independently: Yes unknown) (unknown) (no (unknown) (unknown) marital status: (units (unknown) date) unknown) (unknown) (no (unknown) (unknown) moderate central (units (unknown) date) canal narrowing unknown) present. These degenerative changes have (unknown) (no (unknown) (unknown) moderate left-sided (unit s (unknown) date) and mild to moderate unknown) right-sided neural foraminal narrowing (unknown) (no (unknown) (unknown) moderate (units (unkno wn) date) right-sided and mild unknown) left-sided neural foraminal narrowing seen. No (unknown) (no (unknown) (unknown) monitor the relief (units (unknown) date) prior to our unknown) follow-up visit. (unknown) (no (unknown) (unknown) month ago injuring (units (unknown) date) his left shoulder.? unknown) He reports he was evaluated by (unknown) (no (unknown) (unknown) months as well as (units (unknown) date) his home exercise unknown) program he would like to proceed today. (unknown) (no (unknown) (unknown) neg / neg (units (unkn own) date) unknown) (unknown) (no (unknown) (unknown) neurological (units (u nknown) date) deficit with unknown) progressive or disabling symptoms. (unknown) (no (unknown) (unknown) not limited to (units (unknown) date) bleeding, infection, unknown) allergic reaction, nerve injury, stroke, (unknown) (no (unknown) (unknown) obtained today (units (unknown) date) without guarantees unknown) or assurances of complete relief applied. (unknown) (no (unknown) (unknown) occurred due to the (unit s (unknown) date) inherent limitations unknown) of voice recognition software. Please (unknown) (no (unknown) (unknown) of complete relief (units (unknown) date) applied. Please see unknown) the procedure note for full details. (unknown) (no (unknown) (unknown) of this (units (unkno wn) date) evaluation.?He does unknown) report x-rays were taken of the left shoulder at the (unknown) (no (unknown) (unknown) omeprazole 20 mg (units (unknown) date) capsule,delayed unknown) release 20 mg PO BEDTIME 09/05/18 [History (unknown) (no (unknown) (unknown) or (units (unkno wn) date) immunosuppressive unknown) therapy, previous or current cancer diagnosis, history of (unknown) (no (unknown) (unknown) pain and left lower (units (unknown) date) extremity symptoms unknown) at this time.? He does report he has been (unknown) (no (unknown) (unknown) palpated. A 25 gauge (unit s (unknown) date) 1 advancing was unknown) atraumatically introduced and advanced into (unknown) (no (unknown) (unknown) paralysis and (unit s (unknown) date) and the patient unknown) elected to proceed. Informed consent was (unknown) (no (unknown) (unknown) pathology with his (units (unknown) date) multilevel unknown) lumbosacral spondylosis with associated stenosis.? (unknown) (no (unknown) (unknown) performed on (units (u nknown) date) 2021.? He is unknown) accompanied today by his for further (unknown) (no (unknown) (unknown) proceed. Informed (units (unknown) date) consent was obtained unknown) today without guarantees or assurances (unknown) (no (unknown) (unknown) progressed (units (unk nown) date) unknown) (unknown) (no (unknown) (unknown) prominent disc (units (unknown) date) bulge is seen, which unknown) is eccentric to the right. Moderate (unknown) (no (unknown) (unknown) quite active using (units (unknown) date) his [place] unknown) brace while active.? He reports he has been (unknown) (no (unknown) (unknown) reaction, nerve (units (unknown) date) injury, stroke, unknown) paralysis and and the patient elected to (unknown) (no (unknown) (unknown) read the note (units ( unknown) date) carefully and unknown) recognize, using context, where these substitutions (unknown) (no (unknown) (unknown) relief of his low (units (unknown) date) back pain left lower unknown) extremity symptoms.? I do not believe the (unknown) (no (unknown) (unknown) review at the time (units (unknown) date) of this visit.? unknown) (unknown) (no (unknown) (unknown) ropinirole 0.5 mg (units (unknown) date) tablet 1.5 mg PO QPM unknown) 05/23/18 [History Confirmed 02/22/22] (unknown) (no (unknown) (unknown) rthopedics in (units (u nknown) date) [facility] with unknown) Dr. Tejeda who treated this conservatively.? (unknown) (no (unknown) (unknown) rupture.? He was (units (unknown) date) treated unknown) conservatively with physical therapy as well as a brace (unknown) (no (unknown) (unknown) seen. (units (unkno wn) date) [id number] unknown) bilateral neural foraminal narrowing is seen. No (unknown) (no (unknown) (unknown) seen. (units (unkno wn) date) unknown) (unknown) (no (unknown) (unknown) significant (units (un known) date) unknown) (unknown) (no (unknown) (unknown) signs simply (units (u nknown) date) complications noting unknown) significant relief prior to dismissal in (unknown) (no (unknown) (unknown) software. 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 (unknown) (no (unknown) (unknown) substance use type: (unit s (unknown) date) does not use unknown) (unknown) (no (unknown) (unknown) tetracycline (units (u nknown) date) [TETRACYCLINE] unknown) Allergy (Unknown, Verified 02/22/22 13:25) (unknown) (no (unknown) (unknown) the home exercise (units (unknown) date) program as unknown) previously outlined by his physical therapist as (unknown) (no (unknown) (unknown) the subacromial (units (unknown) date) space with direct unknown) visualization following negative aspiration, (unknown) (no (unknown) (unknown) these (units (unkno wn) date) unknown) (unknown) (no (unknown) (unknown) time of his injury (units (unknown) date) and evaluation.? unknown) Once again these are not available for my (unknown) (no (unknown) (unknown) to 2012. (units (unkno wn) date) unknown) (unknown) (no (unknown) (unknown) to his left (units (un known) date) shoulder.? These unknown) notes are not available for my review at the time (unknown) (no (unknown) (unknown) to (units (unkno wn) date) unknown) (unknown) (no (unknown) (unknown) tomoderate (units (unk nown) date) unknown) (unknown) (no (unknown) (unknown) was carried out (units (unknown) date) under ultrasound unknown) guidance. The acromial humeral interval was (unknown) (no (unknown) (unknown) well as today. I (units (unknown) date) would like to follow unknown) up in approximately 6 weeks he is in (unknown) (no (unknown) (unknown) with the (units (unkno wn) date) above-stated p.mikael unknown) (unknown) (no (unknown) (unknown) without cough fever (unit s (unknown) date) fatigue at this unknown) time.? He has been fully vaccinated. (unknown) (no (unknown) (unknown) worsened (units (unkno wn) date) unknown) Social History date description facility 2022-01-22 00:00 Ex-smoker (finding) [facility] 2022-02-22 00:00 Ex-smoker (finding) [facility] Vital Signs date measurement value units 2022-01-22 00:00 BMI 31.1 kg/m2 2022-01-22 00:00 BP_diastolic 68 mmHg 2022-01-22 00:00 BP_systolic 138 mmHg 2022-01-22 00:00 heart_rate 79 /min 2022-01-22 00:00 height_metric 180.34 cm 2022-01-22 00:00 height_standard 71 in 2022-01-22 00:00 o2_saturation 98 % 2022-01-22 00:00 temperature_metric 36.72 C 2022-01-22 00:00 temperature_standard 98.1 F 2022-01-22 00:00 weight_metric 101.15 kg 2022-01-22 00:00 weight_standard 223 lb 2022-02-22 00:00 BMI 31.1 kg/m2 2022-02-22 00:00 BP_diastolic 80 mmHg 2022-02-22 00:00 BP_systolic 132 mmHg 2022-02-22 00:00 heart_rate 73 /min 2022-02-22 00:00 height_metric 180.34 cm 2022-02-22 00:00 height_standard 71 in 2022-02-22 00:00 o2_saturation 97 % 2022-02-22 00:00 temperature_metric 36.72 C 2022-02-22 00:00 temperature_standard 98.1 F 2022-02-22 00:00 weight_metric 101.15 kg 2022-02-22 00:00 weight_standard 223 lb
[2022-03-06 17:37] LABS: BASOPHILS # (AUTO) 0.1 10^3/uL (0.0-0.1); BASOPHILS % (AUTO) 0.6 %; EOSINOPHILS # (AUTO) 0.1 10^3/uL (0.0-0.7); EOSINOPHILS % (AUTO) 0.5 %; HCT - HEMATOCRIT 48.7 % (42.0-52.0); HGB - HEMOGLOBIN 15.2 g/dL (14.0-18.0); LYMPHOCYTES # (AUTO) 2.5 10^3/uL (1.5-3.5); LYMPHOCYTES % (AUTO) 23.5 %; MEAN CORPUSCULAR HEMOGLOBIN 28.9 pg (27.0-31.0); MEAN CORPUSCULAR HGB CONC 31.2 g/dL (32.0-36.0); MEAN CORPUSCULAR VOLUME 92.6 fL (80.0-94.0); MONOCYTES # (AUTO) 0.9 10^3/uL (0.0-1.0); MONOCYTES % (AUTO) 8.3 %; NEUTROPHILS # (AUTO) 7.1 10^3/uL (1.5-6.6); NEUTROPHILS % (AUTO) 66.8 %; PLT - PLATELET COUNT 182 10^3/uL (130-450); RED BLOOD COUNT 5.26 10^6/uL (4.70-6.10); RED CELL DISTRIBUTION WIDTH 13.6 % (12.0-15.0); WHITE BLOOD COUNT 10.6 x10^3/uL (4.8-10.8)
[2022-03-06 17:50] LABS: ALBUMIN 4.2 g/dL (3.2-5.5); ALBUMIN/GLOBULIN RATIO 1.4 (1.0-2.2); BILIRUBIN,TOTAL 0.9 mg/dL (0.2-1.0); CALCIUM 9.3 mg/dL (8.5-10.3); POTASSIUM 4.7 mmol/L (3.5-5.0); TOTAL PROTEIN 7.1 g/dL (6.7-8.2)
[2022-03-06] MEDS ORDERED: iohexoL-300 100 ML VIAL ONE (18:08)
--- NOTE | 2022-03-06 19:34 | CT Report ---
PROCEDURE: ANGIO NECK W INDICATIONS: off balance, ear clicking sound CONTRAST: 80mL Omni 300 TECHNIQUE: After the administration of intravenous contrast, 1.5 mm axial sections acquired from the aortic arch to the [place] of [place]. Coronal 3-D maximum intensity projection (MIP) and/or volume rendering ref ormats were then performed. For radiation dose reduction, the following was used: automated exposur e control, adjustment of mA and/or kV according to patient size. COMPARISON: MR angiogram 04/05/2017. FINDINGS: Image quality: Excellent. Carotid system: The great vessels demonstrate a conventional anatomy as they arise from the aortic a rch. The origins of the common carotid arteries appear patent. The common carotid arteries demonstr ate normal calibers and courses. Mild atherosclerotic calcifications at the bilateral carotid bifurc ations without dynamically significant stenosis. The internal carotid arteries demonstrate normal parvin iber and course. Posterior circulation: Mild atherosclerotic calcifications of the origins of the bilateral vertebral arteries without hemodynamically significant stenosis. The more superior extracranial portions of th e vertebral arteries demonstrate normal course and caliber. Short segments high-grade stenosis or occ lusion of the distal right vertebral artery is seen just proximal to the anastomosis. Soft tissues: Visualized neck soft tissues demonstrate no suspicious abnormalities. The thyroid is normal in size and there are no incidental findings. Bones: No suspicious bony lesions. Degenerative changes are seen in spine. IMPRESSION: 1.Focal short segment high-grade stenosis or occlusion of the distal intracranial portion of the righ t vertebral artery just proximal to the confluence of the vertebral arteries. 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 The estimate of stenosis included in the report of the imaging study was calculated using the NASCET method Reviewed by: Rosalio Calderon MD on 03/06/2022 7:33 PM PST Approved by: Rosalio Calderon MD on 03/06/2022 7:33 PM PST Station ID: [id number]
--- NOTE | 2022-03-06 19:35 | CT Report ---
PROCEDURE: ANGIO HEAD W/WO INDICATIONS: off balance, ear clicking sound CONTRAST: 80mL Omni 300 TECHNIQUE: Precontrast 4.5 mm thick angled axial sections acquired from the foramen magnum to the vertex. Afte r the administration of intravenous contrast, 1 mm thick sections acquired through the [place] of [place] is. Postcontrast 4.5 mm thick sections then re-acquired from the foramen magnum to the vertex. 3-di mensional xzrqojj-bjxobxhcu-qgzboopnlh (MIP) and/or volume rendering reformats were acquired of the c entral intracranial vasculature. For radiation dose reduction, the following was used: automated ex posure control, adjustment of mA and/or kV according to patient size. COMPARISON: MRI brain 04/05/2017 FINDINGS: Image quality: Excellent. Anterior circulation: Intracranial internal carotid arteries demonstrated mild atherosclerotic calci fications without significant stenosis.. The flow within the paired anterior cerebral arteries is no rmal and symmetric. The flow within the middle cerebral arteries is normal and symmetric. The anter ior communicating artery is seen. No aneurysms are seen. Posterior circulation: Short segment high-grade stenosis or occlusion of the distal right vertebral artery is seen approximately 2 mm proximal to the anastomosis. The right posteroinferior cerebellar a rtery is patent. The left vertebral artery is patent and the basilar artery demonstrates normal flow. Flow within the posterior cerebral arteries is normal and symmetric. No aneurysms are seen. CSF spaces: Ventricles are symmetric in size and shape. Basal cisterns are patent. No extra-axial fluid collections. Brain: No midline shift. No intracranial bleeds or masses. Mild loss of cerebral and cerebellar par enchymal volume, which may be age-related. Subcortical and periventricular hypodensities are nonspeci fic, but are most commonly encountered in the setting of chronic microvascular ischemic changes. Skull and face: Calvarium and facial bones appear intact, without suspicious lesions. Sinuses: Visualized sinuses and mastoids are clear. IMPRESSION: 1.Focal short segment high-grade stenosis or occlusion of the distal intracranial portion of the righ t vertebral artery just proximal to the confluence of the vertebral arteries. 2.No acute intracranial hemorrhage. No focal loss of danielle-white matter differentiation identified. 3.Mild chronic microvascular ischemic changes and age-related parenchymal volume loss. Reviewed by: Rosalio Calderon MD on 03/06/2022 7:33 PM PST Approved by: Rosalio Calderon MD on 03/06/2022 7:33 PM PST Station ID: [id number]
--- NOTE | 2022-03-06 20:29 | ED Physician Documentation ---
History of Present Illness - Stated complaint Stated Complaint: RINGING EARS,DIZZINESS - Chief complaint Chief Complaint: General - History obtained from History obtained from: Patient - History of Present Illness Timing: Yesterday Pain level max: 0 Pain level now: 0 - Additonal information Additional information: 86-year-old male presents to the emergency department complaining of a clicking in both of his ears since yesterday. Worse when he stands up, better when he lies down. He states he did feel dizzy earlier as well. No difficulty walking. He went and saw his doctor today, he states that they told him to come to the emergency department and refused to see him in clinic. They stated that he cou ld have a carotid artery dissection. He states that his blood pressure was higher than usual earlier today as well. He did recently stop lisinopril 4 days ago. No chest pain. No shortness of breath. No headache. No trauma. Review of Systems Constitutional: denies: Fever, Chills Ears: denies: Ear pain Nose: denies: Rhinorrhea / runny nose, Congestion Throat: denies: Sore throat Respiratory: denies: Cough GI: denies: Nausea, Vomiting, Diarrhea : denies: Dysuria, Frequency Skin: denies: Rash Musculoskeletal: denies: Neck pain, Back pain Neurologic: denies: Headache PD PAST MEDICAL HISTORY - Past Medical History Cardiovascular: Hypertension - Past Surgical History Past Surgical History: Yes - Present Medications Home Medications: Ambulatory Orders Medication Instructions Recorded Confirmed Aspirin 06/07/18 Furosemide [Lasix] 06/07/18 Oxycodone HCl/Acetaminophen 1 - 2 each PO Q6H PRN #14 tablet 06/07/18 [Percocet 5-325 mg Tablet] Ropinirole HCl 06/07/18 Simvastatin 06/07/18 Tamsulosin [Flomax] 0.4 mg PO DAILY #10 capsule 06/07/18 lisinopriL [Lisinopril] 06/07/18 - Allergies Allergies/Adverse Reactions: Allergies Allergy/AdvReac Type Severity Reaction Status Date / Time Penicillins AdvReac Anaphylaxis Verified 03/06/22 15:42 Tetracyclines AdvReac Anaphylaxis Verified 03/06/22 15:42 - Social History Does the pt smoke?: No Smoking Status: Never smoker PD ED PE NORMAL - Vitals Vital signs reviewed: Yes - General General: Alert and oriented X 3, No acute distress - HEENT HEENT: PERRL, Ears normal, Moist mucous membranes, Pharynx benign - Neck Neck: Supple, no meningeal sign, No JVD, No bruit - Cardiac Cardiac: RRR, No murmur, Strong equal pulses - Respiratory Respiratory: No respiratory distress, Clear bilaterally - Abdomen Abdomen: Normal bowel sounds, Soft, Non tender, Non distended - Derm Derm: Warm and dry - Extremities Extremities: No edema, No calf tenderness / cord - Neuro Neuro: Alert and oriented X 3, 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 Normal udfjrw-it-wzby. Normal cerebellar test. no nystagmus) Eye Opening: Spontaneous Motor: Obeys Commands Verbal: Oriented GCS Score: 15 - Psych Psych: Normal mood, Normal affect Results - Vitals Vitals: Vital Signs - 24 hr 03/06/22 03/06/22 03/06/22 15:42 17:37 19:00 Temperature 36.9 C 36.6 C Heart Rate 82 70 68 Respiratory 20 18 16 Rate Blood Pressure 152/88 H 166/89 H 176/94 H O2 Saturation 98 97 100 03/06/22 20:30 Temperature 36.7 C Heart Rate 69 Respiratory 18 Rate Blood Pressure 169/88 H O2 Saturation 98 Oxygen O2 Source Room air - Labs Labs: Laboratory Tests 03/06/22 03/06/22 17:28 17:28 WBC 10.6 RBC 5.26 Hgb 15.2 Hct 48.7 MCV 92.6 MCH 28.9 MCHC 31.2 L RDW 13.6 Plt Count 182 MPV 10.0 Neut # (Auto) 7.1 H Lymph # (Auto) 2.5 [place] # (Auto) 0.9 Eos # (Auto) 0.1 Baso # (Auto) 0.1 Absolute Nucleated RBC 0.00 Nucleated RBC % 0.0 Sodium 140 Potassium 4.7 Chloride 104 Carbon Dioxide 27 Anion Gap 9.0 BUN 38 H Creatinine 1.0 Estimated GFR (MDRD) 71 L Glucose 112 H Calcium 9.3 Total Bilirubin 0.9 AST 20 ALT 30 Alkaline Phosphatase 95 Total Protein 7.1 Albumin 4.2 Globulin 2.9 Albumin/Globulin Ratio 1.4 - Rads (name of study) CT angio head Radiology: Final report received, See rad report CT angio neck Radiology: Final report received, See rad report PD Medical Decision Making - ED course Complexity details: reviewed results, re-evaluated patient, considered differential, d/w patient, d/w family ED course: 86-year-old male with clicking in his ears of unclear etiology. Seems to occur with or without his hearing aids. The clicking resolved in the emergency department and he states that he has a faint ringing. No acute findings on CT a ngiogram head and neck other than a focal short segment high-grade stenosis versus occlusion of the distal intracranial portion of the right vertebral artery, proximal to the confluence of the vertebral arteries. Discussed the case with neurology, they do not feel that this would cause his symptoms based on the anatomy. Patient does not have any cerebellar symptoms at this time. He will follow-up with his doctor for further care. NIH stroke scale of 0. Patient counseled regarding signs and symptoms for which I believe and urgent re-evaluation would be necessary. Patient with good understanding of and agreement to plan and is comfortable going home at this time This document was made in part using voice recognition software. While efforts are made to proofread this document, sound alike and grammatical errors may occur. IMPRESSION: 1.Focal short segment high-grade stenosis or occlusion of the distal intracranial portion of the right vertebral artery just proximal to the confluence of the vertebral arteries. 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 Return if you worsen. The cause of your symptoms is unclear. There are no acute findings on laboratory testing. You do have a short segment stenosis versus occlusion of the distal part of your right vertebral artery, but this would not cause any of these symptoms. I did speak with neurology tonight. Continue your medications at home. IMPRESSION: 1.Focal short segment high-grade stenosis or occlusion of the distal intracranial portion of the right vertebral artery just proximal to the confluence of the vertebral arteries. 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 The estimate of stenosis included in the report of the imaging study was calculated using the NASCET method Discharge Date/Time: 03/06/22 20:35
[2022-03-06 20:31] VITALS: BP 169/88
[2022-03-06] MEDS ORDERED: iohexoL-300 100 ML VIAL IVP ONE (20:43)
== END 2022-03-06 20:35 | disposition home or self-care (01) ==
LOC: ED 15:36
DX: H93.13 Tinnitus, bilateral (principal); I65.01 Occlusion and stenosis of right vertebral artery; I10 Essential (primary) hypertension
CPT/HCPCS: 36415; 70496; 70498; 80053; 85025; 99284; Q9967

== ENCOUNTER 2022-03-22 09:07 | Emergency (ER) | payer MEDICARE, OTHER ==
--- OUTSIDE RECORDS SUMMARY | 2022-03-22 09:19 | EXTERNAL MEDICAL SUMMARY RPT | Continuity of Care Document ---
:1935 Author Organization [place] Address [address] [place] [address] Phone Care Team Providers Name Role Phone Yonas Rios Unavailable Unavailable Allergies No information. Encounters No information. Functional Status No information. Immunizations No information. Medications date description facility 2022-01-22 00:00 [facility] Problems No information. Procedures No information. Results/Labs [...] own) date) unknown) (unknown) (no (unknown) (unknown) [place] (units ( unknown) date) [id number] unknown) (unknown) (no (unknown) (unknown) Attending Dr: (units ( unknown) date) Que Pope D.O. 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 unknown) (unknown) (no (unknown) (unknown) [id number] (units (unk nown) date) unknown) (unknown) (no (unknown) (unknown) Medical History (units (unknown) date) (Reviewed 09/25/21 unknown) @ 16:16 by Que Pope DO) (unknown) (no (unknown) (unknown) 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) [...] unknown) 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, 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 (unknown) (no (unknown) (unknown) substance use [...] (unknown) JIM Lynn (units ( unknown) date) [id number] unknown) (unknown) (no (unknown) (unknown) Attending Dr: [...] (unknown) (unknown) : 1935 (units (unknown) date) Acct:[id number] unknown) (unknown) (no (unknown) (unknown) 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 unknown) (unknown) (no (unknown) (unknown) [id number] (units (unk nown) date) unknown) (unknown) (no (unknown) (unknown) Medical History (units (unknown) date) (Reviewed 01/22/22 unknown) @ 14:37 by Que Pope DO) (unknown) (no (unknown) (unknown) 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) [...] unknown) 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, 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 (unknown) (no (unknown) (unknown) substance use [...] (unknown) JIM Lynn (units ( unknown) date) [id number] unknown) (unknown) (no (unknown) (unknown) Attending Dr: [...] (unknown) (unknown) : 1935 (units (unknown) date) Acct:[id number] unknown) (unknown) (no (unknown) (unknown) 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 unknown) (unknown) (no (unknown) (unknown) [id number] (units (unk nown) date) unknown) (unknown) (no (unknown) (unknown) Medical History (units (unknown) date) (Reviewed 01/22/22 unknown) @ 14:37 by Que Pope DO) (unknown) (no (unknown) (unknown) 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) [...] (unknown) Patient: Linh (units (unknown) date) Reginald MR#: unknown) (unknown) (no (unknown) (unknown) Penicillins [...] unknown) 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, 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 (unknown) (no (unknown) (unknown) substance use [...] intrabursal (units (unknown) date) left shoulder unknown) [id number] 07/10/23 [id number] 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 (unknown) (no (unknown) (unknown) ACCESSION#: (units (un known) date) [id number] EXAM unknown) DATE: 03/29/2017 (unknown) (no (unknown) [...] unknown) (unknown) (no (unknown) (unknown) JIM Lynn [id number] (unit s (unknown) date) unknown) (unknown) (no [...] (unknown) Biceps (R/L):07/13 / (units (unknown) date) 5 Triceps unknown) (R/L):07/13 / 5 Intrinsics (unknown) (no (unknown) (unknown) Blood Pressure [...] (unknown) (unknown) : 1935 (units (unknown) date) Acct:[id number] unknown) (unknown) (no (unknown) (unknown) DTR UE [...] axillary unknown) lymphadenopathy (unknown) (no (unknown) (unknown) [id number] (units (unk nown) date) unknown) (unknown) (no (unknown) (unknown) MODALITY: MR (units (u nknown) date) PATIENT TYPE: Out unknown) (unknown) (no (unknown) (unknown) (units (unknown) date) ACCOUNT #: unknown) [id number] (unknown) (no (unknown) (unknown) MSK: System (units (un known) date) reviewed and no unknown) additional complaints, except as documented. 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 (unknown) (no (unknown) (unknown) Wallowa's Test (units (unknown) date) (R/L): neg / [...] PATIENT NAME: (units ( unknown) date) REGINALD GRIMALDO unknown) : 1935 (unknown) (no (unknown) (unknown) [...] rocky Ellison, (units (unknown) date) [facility] [place] ([place]) (no (unknown) (unknown) [...] (units (unknown) date) bulge is seen. unknown) Sogn-qn-qngslzhd facet hypertrophy is seen. (unknown) (no (unknown) [...] (unknown) (unknown) seen. (units (unkno wn) date) Wiop-kk-fhbyumfc unknown) bilateral neural foraminal narrowing is seen. 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 (unknown) (no (unknown) (unknown) substance use [...] intrabursal (units (unknown) date) left shoulder unknown) [id number] 07/10/23 [id number] 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 (unknown) (no (unknown) (unknown) ACCESSION#: (units (un known) date) [id number] EXAM unknown) DATE: 03/29/2017 (unknown) (no (unknown) [...] 160 (unknown) (no (unknown) (unknown) Nikhil at [facility] (unit s (unknown) date) health and unknown) [...] own) date) unknown) (unknown) (no (unknown) (unknown) [place] [address] (unit s (unknown) date) unknown) (unknown) (no (unknown) (unknown) As oral consent, we (units (unknown) date) did review the risks unknown) of the above stated procedure including (unknown) (no (unknown) (unknown) Assessment + Plan (units (unknown) date) unknown) (unknown) (no (unknown) (unknown) Attending Dr: (units ( unknown) date) Que WareOBen unknown) (unknown) (no (unknown) (unknown) BMI 31.1 [...] (unknown) (unknown) : 1935 (units (unknown) date) Acct:[id number] unknown) (unknown) (no (unknown) (unknown) DTR UE [...] axillary unknown) lymphadenopathy (unknown) (no (unknown) (unknown) [id number] (units (unk nown) date) unknown) (unknown) (no (unknown) (unknown) M17.0 - Bilateral (units (unknown) date) primary unknown) osteoarthritis of knee (unknown) (no (unknown) (unknown) MODALITY: MR (units (u nknown) date) PATIENT TYPE: Out unknown) (unknown) (no (unknown) (unknown) (units (unknown) date) ACCOUNT #: unknown) [id number] (unknown) (no (unknown) (unknown) MSK: System (units (un known) date) reviewed and no unknown) additional complaints, except as documented. 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 (unknown) (no (unknown) (unknown) Wallowa's Test (units (unknown) date) (R/L): neg / [...] PATIENT NAME: (units ( unknown) date) REGINALD GRIMALDO unknown) : 1935 (unknown) (no (unknown) (unknown) [...] rocky Ellison, (units (unknown) date) lives in [place] unknown) [place] (unknown) (no (unknown) (unknown) [...] (units (unknown) date) bulge is seen. unknown) Njtk-ji-apzqvcdr facet hypertrophy is seen. (unknown) (no (unknown) [...] quite active using (units (unknown) date) his [place] unknown) brace while active.? He reports he [...] (unknown) (unknown) seen. (units (unkno wn) date) Mrpm-rf-ovqxsivw unknown) bilateral neural foraminal narrowing is seen. 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.] (unknown) (unknown) : 1935 (units (unknown) date) Acct:[id number] unknown) (unknown) (no (unknown) (unknown) DTR UE [...] axillary unknown) lymphadenopathy (unknown) (no (unknown) (unknown) [id number] (units (unk nown) date) unknown) (unknown) (no (unknown) (unknown) M17.0 - Bilateral (units (unknown) date) primary unknown) osteoarthritis of knee (unknown) (no (unknown) (unknown) MODALITY: MR (units (u nknown) date) PATIENT TYPE: Out unknown) (unknown) (no (unknown) (unknown) (units (unknown) date) ACCOUNT #: unknown) [id number] (unknown) (no (unknown) (unknown) MSK: System (units (un known) date) reviewed and no unknown) additional complaints, except as documented. 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 (unknown) (no (unknown) (unknown) Wallowa's Test (units (unknown) date) (R/L): neg / [...] rocky Ellison, (units (unknown) date) lives in [place] unknown) [place] (unknown) (no (unknown) (unknown) [...] (units (unknown) date) bulge is seen. unknown) Ynxj-tx-evdhybhf facet hypertrophy is seen. (unknown) (no (unknown) [...] date) program as well as unknown) wears [place] brace when lifting. (unknown) (no (unknown) (unknown) [...] quite active using (units (unknown) date) his [place] unknown) brace while active.? He reports he [...] (unknown) rthopedics in (units (u nknown) date) [facility] with unknown) Dr. Tejeda who treated this conservatively.? (unknown) (no (unknown) (unknown) rupture.? He was (units (unknown) date) treated unknown) conservatively with physical therapy as well as a brace (unknown) (no (unknown) (unknown) seen. (units (unkno wn) date) Ckee-vz-bsannyvm unknown) bilateral neural foraminal narrowing is seen. 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
[2022-03-22 09:45] LABS: BASOPHILS # (AUTO) 0.1 10^3/uL (0.0-0.1); BASOPHILS % (AUTO) 0.8 %; EOSINOPHILS # (AUTO) 0.1 10^3/uL (0.0-0.7); EOSINOPHILS % (AUTO) 1.7 %; HCT - HEMATOCRIT 45.4 % (42.0-52.0); HGB - HEMOGLOBIN 14.5 g/dL (14.0-18.0); LYMPHOCYTES # (AUTO) 1.7 10^3/uL (1.5-3.5); LYMPHOCYTES % (AUTO) 25.6 %; MEAN CORPUSCULAR HEMOGLOBIN 29.4 pg (27.0-31.0); MEAN CORPUSCULAR HGB CONC 31.9 g/dL (32.0-36.0); MEAN CORPUSCULAR VOLUME 92.1 fL (80.0-94.0); MEAN PLATELET VOLUME 9.7 fL (7.4-11.4); MONOCYTES # (AUTO) 0.5 10^3/uL (0.0-1.0); MONOCYTES % (AUTO) 7.3 %; NEUTROPHILS # (AUTO) 4.2 10^3/uL (1.5-6.6); NEUTROPHILS % (AUTO) 64.4 %; PLT - PLATELET COUNT 137 10^3/uL (130-450); RED BLOOD COUNT 4.93 10^6/uL (4.70-6.10); RED CELL DISTRIBUTION WIDTH 13.4 % (12.0-15.0); WHITE BLOOD COUNT 6.6 x10^3/uL (4.8-10.8)
--- NOTE | 2022-03-22 09:59 | XRAY Report ---
PROCEDURE: Chest 1 View X-Ray INDICATIONS: Chest pain TECHNIQUE: One view of the chest was acquired. COMPARISON: 12/27/2021 FINDINGS: Surgical changes and devices: None. Lungs and pleura: No pleural effusions or pneumothorax. Lungs demonstrate low lung volumes but are clear. Mediastinum: Mediastinal contours appear normal. Heart size is normal. Bones and chest wall: No suspicious bony lesions. Overlying soft tissues appear unremarkable. IMPRESSION: Given low lung volumes, no acute cardiopulmonary disease. Reviewed by: Sidra Manriquez MD on 03/22/2022 9:58 AM PST Approved by: Sidra Manriquez MD on 03/22/2022 9:58 AM PST Station ID: [id number]
[2022-03-22 10:03] LABS: ALBUMIN 3.9 g/dL (3.2-5.5); ALBUMIN/GLOBULIN RATIO 1.5 (1.0-2.2); CALCIUM 8.9 mg/dL (8.5-10.3); CREATININE 1.1 mg/dL (0.6-1.2); POTASSIUM 3.8 mmol/L (3.5-5.0); TOTAL PROTEIN 6.5 g/dL (6.7-8.2)
[2022-03-22] MEDS ORDERED: SODIUM CHLORIDE 0.9% 1,000 ML IV STA (10:41)
[2022-03-22] MEDS ORDERED: iohexoL-300 100 ML VIAL ONE (11:21)
[2022-03-22] MEDS ORDERED: iohexoL-300 100 ML VIAL IVP ONE (11:49)
--- NOTE | 2022-03-22 12:44 | CT Report ---
PROCEDURE: ABDOMEN/PELVIS W INDICATIONS: upper abdominal pain, worsening CONTRAST: 100ml Omnipaque 300 TECHNIQUE: After the administration of IV contrast, 5 mm thick sections acquired from the diaphragms to the symp hysis. 5 mm thick coronal and sagittal reformats were acquired. For radiation dose reduction, the f ollowing was used: automated exposure control, adjustment of mA and/or kV according to patient size. COMPARISON: 03/08/2020 FINDINGS: Image quality: Decreased in the epigastric region due to respiratory motion. ABDOMEN: Lung bases: Lung bases are clear. Heart size is normal. Mild coronary artery calcification partial ly imaged. Solid organs: Liver and spleen are normal in size and enhancement. Lobulated, stable size of cystic mass in the dorsal left hepatic lobe. Gallbladder is not well seen due to respiratory motion. Bilia ry system is non dilated. Pancreas enhances normally. No adrenal nodules. Kidneys demonstrate norm al size and enhancement, without hydronephrosis. There is a right lower pole parenchymal calcificatio n with overlying cortical loss suggesting scarring. No collecting system calcifications. The ureters are normal without calcification. Peritoneum and bowel: Bowel loops demonstrate normal wall thickness and caliber. No free fluid or a ir. Nodes and vessels: No retroperitoneal or mesenteric adenopathy by size criteria. Aorta and inferior vena cava are normal in size. Moderate calcific atherosclerosis. Miscellaneous: Tiny fat-containing umbilical hernia.. PELVIS: Genitourinary: Bladder wall thickness is normal. The prostate gland is surgically absent. Miscellaneous: No inguinal hernias or adenopathy. Bones: No suspicious bony lesions. Multilevel endplate syndesmophytes throughout the lumbar spine a nd smooth ankylosis of lower thoracic vertebral bodies. No vertebral body compression fractures. IMPRESSION: 1. No acute process. 2. Suboptimal visualization of the gallbladder due to respiratory motion. 3. 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 Correlate clinicall y. Reviewed by: Sidra Manriquez MD on 03/22/2022 12:43 PM PST Approved by: Sidra Manriquez MD on 03/22/2022 12:43 PM PST Station ID: [id number]
--- NOTE | 2022-03-22 12:51 | ED Physician Documentation ---
PD HPI ABD PAIN - Stated complaint Stated Complaint: CHEST PX - Chief complaint Chief Complaint: Cardiac - History obtained from History obtained from: Patient, Family - Additional information Additional information: The patient comes to the emergency department chief complaint of episodes of a stabbing pain in his upper abdomen/lower chest that has been escalating over the last several days. The patient states that he has longstanding history of pain in his upper abdomen but this feels somewhat different. He has seen his doctor on several occasions for the chronic pain, but no imaging or other investigation has been done by his account. The patient states that his doctor finally ordered a CT scan for him the last time he was there, but he has not been able to get this done yet. The patient is not known to have any abdominal history otherwise. He has no surgical history. The patient does not take any antacids. He states the pain can come on randomly and there is really no rhyme or reason for it. Sometimes it comes on when he is lifting something or sometimes when he is sitting or lying down. He states it has never awakened him from sleep. He had only a couple of episodes on the first day but yesterday, had approximately 6 episodes. This morning he has already had a couple. He states the pain lasted for couple of minutes and hits its peak then slowly subsides. He states he feels a bit weak afterward. The patient states it makes him feel lightheaded and he has to catch his breath because of the pain but the pain does not radiate anywhere else. He does not notice any dyspnea on exertion in between and no pain in between episodes. Patient's states he seems a little confused after the episode sometimes. No cardiac history. He has never had endoscopy. No other complaints at this time. Review of Systems Constitutional: reports: Reviewed and negative Eyes: reports: Reviewed and negative Ears: reports: Reviewed and negative Nose: reports: Reviewed and negative Throat: reports: Reviewed and negative Cardiac: reports: Chest pain / pressure Respiratory: reports: Reviewed and negative GI: reports: Abdominal Pain : reports: Reviewed and negative Skin: reports: Reviewed and negative Musculoskeletal: reports: Reviewed and negative Neurologic: reports: Reviewed and negative Psychiatric: reports: Reviewed and negative Endocrine: reports: Reviewed and negative Immunocompromised: reports: Reviewed and negative PD PAST MEDICAL HISTORY - Past Medical History Cardiovascular: Hypertension - Past Surgical History Past Surgical History: Yes - Present Medications Home Medications: Ambulatory Orders Medication Instructions Recorded Confirmed Aspirin 06/07/18 Furosemide [Lasix] 06/07/18 Oxycodone HCl/Acetaminophen 1 - 2 each PO Q6H PRN #14 tablet 06/07/18 [Percocet 5-325 mg Tablet] Ropinirole HCl 06/07/18 Simvastatin 06/07/18 Tamsulosin [Flomax] 0.4 mg PO DAILY #10 capsule 06/07/18 lisinopriL [Lisinopril] 06/07/18 Omeprazole Magnesium 20 mg PO DAILY #30 tab 03/22/22 - Allergies Allergies/Adverse Reactions: Allergies Allergy/AdvReac Type Severity Reaction Status Date / Time Penicillins AdvReac Anaphylaxis Verified 03/22/22 09:18 Tetracyclines AdvReac Anaphylaxis Verified 03/22/22 09:18 - Social History Does the pt smoke?: No Smoking Status: Never smoker PD ED PE NORMAL - Vitals Vital signs reviewed: Yes - General General: Alert and oriented X 3, No acute distress, Well developed/nourished - HEENT HEENT: Atraumatic, PERRL, EOMI, Moist mucous membranes - Neck Neck: Supple, no meningeal sign - Cardiac Cardiac: RRR, No murmur, Strong equal pulses - Respiratory Respiratory: No respiratory distress, Clear bilaterally - Abdomen Abdomen: Soft, Non distended, Other (Mild bilateral upper quadrant tenderness along the costal border, no rebound or guarding.) - Derm Derm: Normal color, Warm and dry, No rash - Extremities Extremities: No deformity, No edema, No calf tenderness / cord - Neuro Neuro: Alert and oriented X 3, Other (Grossly intact) - Psych Psych: Normal mood, Normal affect Results - Vitals Vitals: Vital Signs - 24 hr 03/22/22 03/22/22 03/22/22 09:13 09:51 10:30 Temperature 36.7 C Heart Rate 82 74 71 Respiratory 16 21 17 Rate Blood Pressure 150/76 H 141/74 H 140/68 H O2 Saturation 98 94 94 03/22/22 03/22/22 03/22/22 11:00 11:30 12:13 Temperature Heart Rate 78 68 67 Respiratory 18 18 26 H Rate Blood Pressure 118/73 131/71 H 160/96 H O2 Saturation 100 99 96 03/22/22 03/22/22 12:50 13:04 Temperature Heart Rate 69 75 Respiratory 22 15 Rate Blood Pressure 155/88 H 131/87 H O2 Saturation 99 100 Oxygen O2 Source Room air - Labs Labs: Laboratory Tests 03/22/22 03/22/22 03/22/22 09:37 09:37 09:37 WBC 6.6 RBC 4.93 Hgb 14.5 Hct 45.4 MCV 92.1 MCH 29.4 MCHC 31.9 L RDW 13.4 Plt Count 137 MPV 9.7 Neut # (Auto) 4.2 Lymph # (Auto) 1.7 [place] # (Auto) 0.5 Eos # (Auto) 0.1 Baso # (Auto) 0.1 Absolute Nucleated RBC 0.00 Nucleated RBC % 0.0 Sodium 138 Potassium 3.8 Chloride 102 Carbon Dioxide 28 Anion Gap 8.0 BUN 24 H Creatinine 1.1 Estimated GFR (MDRD) 63 L Glucose 111 H Calcium 8.9 Total Bilirubin 1.0 AST 17 ALT 27 Alkaline Phosphatase 86 Troponin I High Sens 7.3 Total Protein 6.5 L Albumin 3.9 Globulin 2.6 Albumin/Globulin Ratio 1.5 Lipase 32 - Rads (name of study) CT abdomen and pelvis Radiology: Final report received, See rad report (No acute findings) Chest x-ray Radiology: Final report received, See rad report (No acute findings, though low lung volumes noted on the study.) PD Medical Decision Making - ED course Complexity details: reviewed results, re-evaluated patient, considered differential, d/w patient, d/w family ED course: The patient was very well-appearing in the emergency department, though he did have an episode in my presence of the pain. The patient had described the pain as being more of a chest pain initially, but when he had the episode, he actually pointed to a focal area in his epigastrium and just to the right as being the focus of the pain. He stated that he could feel it radiate up into his lower substernal area a little bit too. The episode lasted only approximately 30 to 60 seconds and was not associated with any change on the hall monitor. He had persistent normal sinus rhythm in the upper 70s to low 80s without ectopy. I did work him up with labs and EKG initially, as well as chest x-ray, all of which were unremarkable. The patient was then sent for CT of the abdomen and pelvis which was also unremarkable. I discussed with the patient and his that the best diagnostic study to follow what we have done in the ED would probably be an endoscopy. We have discussed that the patient will need to follow-up with his primary care physician to discuss this. I will offered the patient a prescription for a PPI and also recommend a coating agent such as Maalox and see if this improves the patient's symptoms. He does have a very remote history of gastric ulcer and the symptoms patient is having could certainly represent something like that. I discussed with him that no emergent condition has been identified today. I do not believe this syndrome represents an acute cardiac issue. We have discussed the usual indications for return. Departure - Departure Disposition: 01 Home, Self Care Clinical Impression: Chest pain Qualifiers: Chest pain type: unspecified Qualified Code(s): R07.9 - Chest pain, unspecified Abdominal pain Qualifiers: Abdominal location: epigastric Qualified Code(s): R10.13 - Epigastric pain Condition: Stable Instructions: ED Chest Pain Atypical Unkn Cause, ED Abdominal Pain Unkn Cause Male Prescriptions: Omeprazole Magnesium 20 mg PO DAILY #30 tab Comments: Your labs and CT scan look good. Given the location of your pain, I really feel that you need to talk to your doctor about the possibility of having endoscopy scheduled. You can also call or surgery clinic directly as they do do this procedure and may be able to get you scheduled faster. Please take the stomach medicine that has been prescribed to see if this helps with some your episodes. I do not think this is coming from your heart, as the area you pointed to is really more in your upper abdomen, and your hall monitor did not change at all when you were having your episode. A prescription for omeprazole has been electronically transmitted to the [facility] and [place].
[2022-03-22 13:05] VITALS: BP 131/87
== END 2022-03-22 13:23 | disposition home or self-care (01) ==
LOC: ED 09:07
DX: R07.9 Chest pain, unspecified (principal); R10.13 Epigastric pain; I10 Essential (primary) hypertension
CPT/HCPCS: 36415; 71045; 74177; 80053; 83690; 84484; 85025; 93005; 99284; Q9967

== ENCOUNTER 2022-03-23 11:00 | Emergency (ER) | payer MEDICARE, OTHER ==
--- OUTSIDE RECORDS SUMMARY | 2022-03-23 11:30 | EXTERNAL MEDICAL SUMMARY RPT | Continuity of Care Document ---
:1935 Author Organization [facility] Address [address] [place] [address] Phone Care Team Providers Name Role Phone Yonas Rios Unavailable Unavailable Allergies No information. Encounters No information. Functional Status No information. Immunizations No information. Medications date description facility 2022-01-22 00:00 [facility] Problems No information. Procedures No information. [...] date) unknown) (unknown) (no (unknown) (unknown) [place] (units ( unknown) date) [id number] unknown) (unknown) (no (unknown) (unknown) Attending Dr: (units ( unknown) date) Que Pope D.O. unknown) (unknown) (no (unknown) (unknown) Back pain, (units (unk nown) date) sacroiliac unknown) (unknown) (no (unknown) (unknown) Confirmed (units (unkn own) date) 01/22/22] unknown) (unknown) (no (unknown) (unknown) Costochondritis (units (unknown) date) unknown) (unknown) (no (unknown) (unknown) : 1935 (units (unknown) date) Acct:[id number] unknown) (unknown) (no (unknown) (unknown) 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 unknown) (unknown) (no (unknown) (unknown) [id number] (units (unk nown) date) unknown) (unknown) (no (unknown) (unknown) Medical History (units (unknown) date) (Reviewed 09/25/21 unknown) @ 16:16 by Que Pope DO) (unknown) (no (unknown) (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 unknown) adverse [...] unknown) 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, 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 (unknown) (no (unknown) (unknown) substance use [...] (unknown) JIM [place] (units ( unknown) date) [id number] unknown) (unknown) (no (unknown) (unknown) Attending Dr: [...] (unknown) (unknown) : 1935 (units (unknown) date) Acct:[id number] unknown) (unknown) (no (unknown) (unknown) 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 unknown) (unknown) (no (unknown) (unknown) [id number] (units (unk nown) date) unknown) (unknown) (no (unknown) (unknown) Medical History (units (unknown) date) (Reviewed 09/25/21 unknown) @ 16:16 by Que Pope DO) (unknown) (no (unknown) (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 unknown) (unknown) (no (unknown) (unknown) Back pain, (units (unk nown) date) sacroiliac unknown) (unknown) (no (unknown) (unknown) Confirmed (units (unkn own) date) 02/22/22] unknown) (unknown) (no (unknown) (unknown) Costochondritis (units (unknown) date) unknown) (unknown) (no (unknown) (unknown) : 1935 (units (unknown) date) Acct:[id number] unknown) (unknown) (no (unknown) (unknown) 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 unknown) (unknown) (no (unknown) (unknown) [id number] (units (unk nown) date) unknown) (unknown) (no (unknown) (unknown) Medical History (units (unknown) date) (Reviewed 01/22/22 unknown) @ 14:37 by Que Pope DO) (unknown) (no (unknown) (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 unknown) adverse [...] unknown) 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, 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 (unknown) (no (unknown) (unknown) substance use [...] (unknown) JIM Lynn (units ( unknown) date) [id number] unknown) (unknown) (no (unknown) (unknown) Attending Dr: [...] (unknown) (unknown) : 1935 (units (unknown) date) Acct:[id number] unknown) (unknown) (no (unknown) (unknown) 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 unknown) (unknown) (no (unknown) (unknown) [id number] (units (unk nown) date) unknown) (unknown) (no (unknown) (unknown) Medical History (units (unknown) date) (Reviewed 01/22/22 unknown) @ 14:37 by Que Pope DO) (unknown) (no (unknown) (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 unknown) adverse [...] unknown) 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, 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 (unknown) (no (unknown) (unknown) substance use [...] intrabursal (units (unknown) date) left shoulder unknown) [id number] 07/10/23 [id number] 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 (unknown) (no (unknown) (unknown) ACCESSION#: (units (un known) date) [id number] EXAM unknown) DATE: 03/29/2017 (unknown) (no (unknown) [...] unknown) (unknown) (no (unknown) (unknown) JIM [place] [id number] (unit s (unknown) date) unknown) (unknown) (no [...] (unknown) (unknown) : 1935 (units (unknown) date) Acct:[id number] unknown) (unknown) (no (unknown) (unknown) DTR UE [...] axillary unknown) lymphadenopathy (unknown) (no (unknown) (unknown) [id number] (units (unk nown) date) unknown) (unknown) (no (unknown) (unknown) MODALITY: MR (units (u nknown) date) PATIENT TYPE: Out unknown) (unknown) (no (unknown) (unknown) (units (unknown) date) ACCOUNT #: unknown) [id number] (unknown) (no (unknown) (unknown) MSK: System (units (un known) date) reviewed and no unknown) additional complaints, except as documented. 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 (unknown) (no (unknown) (unknown) Paulding's Test (units (unknown) date) (R/L): neg / [...] rocky [place]ison, (units (unknown) date) [facility] [place] ([place]) (no (unknown) (unknown) [...] (units (unknown) date) bulge is seen. unknown) Rptr-xs-hsnlxthi facet hypertrophy is seen. (unknown) (no (unknown) [...] (unknown) (unknown) seen. (units (unkno wn) date) Rsen-za-fddwbdxa unknown) bilateral neural foraminal narrowing is seen. 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 (unknown) (no (unknown) (unknown) substance use [...] intrabursal (units (unknown) date) left shoulder unknown) [id number] 07/10/23 [id number] 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 (unknown) (no (unknown) (unknown) ACCESSION#: (units (un known) date) [id number] EXAM unknown) DATE: 03/29/2017 (unknown) (no (unknown) [...] 160 (unknown) (no (unknown) (unknown) Nikhil at [facility] (unit s (unknown) date) health and [...] own) date) unknown) (unknown) (no (unknown) (unknown) [place] [address] (unit s (unknown) date) unknown) (unknown) (no [...] (unknown) (unknown) : 1935 (units (unknown) date) Acct:[id number] unknown) (unknown) (no (unknown) (unknown) DTR UE [...] axillary unknown) lymphadenopathy (unknown) (no (unknown) (unknown) [id number] (units (unk nown) date) unknown) (unknown) (no (unknown) (unknown) M17.0 - Bilateral (units (unknown) date) primary unknown) osteoarthritis of knee (unknown) (no (unknown) (unknown) MODALITY: MR (units (u nknown) date) PATIENT TYPE: Out unknown) (unknown) (no (unknown) (unknown) (units (unknown) date) ACCOUNT #: unknown) [id number] (unknown) (no (unknown) (unknown) MSK: System (units (un known) date) reviewed and no unknown) additional complaints, except as documented. 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 (unknown) (no (unknown) (unknown) Paulding's Test (units (unknown) date) (R/L): neg / [...] rocky Ellison, (units (unknown) date) lives in [place] unknown) [place] (unknown) (no (unknown) (unknown) [...] (units (unknown) date) bulge is seen. unknown) Hkqm-cv-lyzigcbz facet hypertrophy is seen. (unknown) (no (unknown) [...] quite active using (units (unknown) date) his Erie Dumont unknown) brace while active.? He reports he [...] (unknown) (unknown) seen. (units (unkno wn) date) Ksth-ge-tigvfmip unknown) bilateral neural foraminal narrowing is seen. 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 (unknown) (no (unknown) (unknown) substance use [...] intrabursal (units (unknown) date) left shoulder unknown) [id number] 07/10/23 [id number] 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 (unknown) (no (unknown) (unknown) ACCESSION#: (units (un known) date) [id number] EXAM unknown) DATE: 03/29/2017 (unknown) (no (unknown) [...] Durolane (unknown) (no (unknown) (unknown) Adishian at [facility] (unit s (unknown) date) health and [...] own) date) unknown) (unknown) (no (unknown) (unknown) [place] [address] (unit s (unknown) date) unknown) (unknown) (no [...] (unknown) (unknown) : 1935 (units (unknown) date) Acct:[id number] unknown) (unknown) (no (unknown) (unknown) DTR UE [...] axillary unknown) lymphadenopathy (unknown) (no (unknown) (unknown) [id number] (units (unk nown) date) unknown) (unknown) (no (unknown) (unknown) M17.0 - Bilateral (units (unknown) date) primary unknown) osteoarthritis of knee (unknown) (no (unknown) (unknown) MODALITY: MR (units (u nknown) date) PATIENT TYPE: Out unknown) (unknown) (no (unknown) (unknown) (units (unknown) date) ACCOUNT #: unknown) [id number] (unknown) (no (unknown) (unknown) MSK: System (units (un known) date) reviewed and no unknown) additional complaints, except as documented. 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 (unknown) (no (unknown) (unknown) Paulding's Test (units (unknown) date) (R/L): neg / [...] rocky Ellison, (units (unknown) date) lives in [place] unknown) [place] (unknown) (no (unknown) (unknown) [...] (units (unknown) date) bulge is seen. unknown) Cmhk-hg-yifqzvlm facet hypertrophy is seen. (unknown) (no (unknown) [...] date) program as well as unknown) wears Erie Dumont brace when lifting. (unknown) (no (unknown) (unknown) [...] quite active using (units (unknown) date) his Erie Dumont unknown) brace while active.? He reports he [...] (unknown) rthopedics in (units (u nknown) date) [facility] with unknown) Dr. Tejeda who treated this conservatively.? (unknown) (no (unknown) (unknown) rupture.? He was (units (unknown) date) treated unknown) conservatively with physical therapy as well as a brace (unknown) (no (unknown) (unknown) seen. (units (unkno wn) date) Hzas-oe-sdokbbzm unknown) bilateral neural foraminal narrowing is seen. 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 m (unknown) (no (unknown) (unknown) substance [...] date description facility 2022-01-22 00:00 Ex-smoker (finding) [facility] 2022-02-22 00:00 Ex-smoker (finding) [facility] Vital Signs date measurement value units [...]
[2022-03-23 11:52] LABS: BASOPHILS % (AUTO) 0.5 %; EOSINOPHILS # (AUTO) 0.1 10^3/uL (0.0-0.7); EOSINOPHILS % (AUTO) 0.9 %; HCT - HEMATOCRIT 47.4 % (42.0-52.0); HGB - HEMOGLOBIN 15.1 g/dL (14.0-18.0); LYMPHOCYTES # (AUTO) 1.5 10^3/uL (1.5-3.5); LYMPHOCYTES % (AUTO) 18.9 %; MEAN CORPUSCULAR HEMOGLOBIN 29.4 pg (27.0-31.0); MEAN CORPUSCULAR HGB CONC 31.9 g/dL (32.0-36.0); MEAN CORPUSCULAR VOLUME 92.4 fL (80.0-94.0); MEAN PLATELET VOLUME 9.8 fL (7.4-11.4); MONOCYTES # (AUTO) 0.5 10^3/uL (0.0-1.0); MONOCYTES % (AUTO) 6.1 %; NEUTROPHILS # (AUTO) 5.6 10^3/uL (1.5-6.6); NEUTROPHILS % (AUTO) 73.1 %; PLT - PLATELET COUNT 149 10^3/uL (130-450); RED BLOOD COUNT 5.13 10^6/uL (4.70-6.10); RED CELL DISTRIBUTION WIDTH 13.5 % (12.0-15.0); WHITE BLOOD COUNT 7.7 x10^3/uL (4.8-10.8)
--- NOTE | 2022-03-23 11:53 | ED Physician Documentation ---
PD HPI CHEST PAIN - Stated complaint Stated Complaint: CHEST PX/SPASM - Chief complaint Chief Complaint: Cardiac - History obtained from History obtained from: Patient - Additional information Additional information: 86-year-old gentleman with history of prostatectomy, hypertension, no history of coronary disease. He has been having episodic low chest upper abdominal pains since October. His is at the bedside and is also an independent a useful historian. The last 5 days these episodic pains have gotten worse. It is a spasm that goes from the epigastrium up comes on quickly and last for about 5 minutes as it molina out. At the peak of it he feels dizzy and weak. Also short of breath. He does not notice any triggers per se. Has not noted an exertional component but notes that he does not really exert himself much. Does not notice any changes with eating. He saw my partner yesterday with basically negative work-up, normal CAT scan, labs, and troponin, also a normal chest x-ra y. Today it has gotten worse over the last 3 hours. The episodes are more frequent but otherwise similar. Review of Systems Constitutional: reports: Chills Cardiac: denies: Palpitations Respiratory: denies: Cough GI: reports: Abdominal Pain. denies: Nausea, Vomiting, Diarrhea PD PAST MEDICAL HISTORY - Past Medical History Cardiovascular: Hypertension - Past Surgical History Past Surgical History: Yes - Present Medications Home Medications: Ambulatory Orders Medication Instructions Recorded Confirmed Aspirin 06/07/18 Furosemide [Lasix] 06/07/18 Oxycodone HCl/Acetaminophen 1 - 2 each PO Q6H PRN #14 tablet 06/07/18 [Percocet 5-325 mg Tablet] Ropinirole HCl 06/07/18 Simvastatin 06/07/18 Tamsulosin [Flomax] 0.4 mg PO DAILY #10 capsule 06/07/18 lisinopriL [Lisinopril] 06/07/18 Omeprazole Magnesium 20 mg PO DAILY #30 tab 03/22/22 - Allergies Allergies/Adverse Reactions: Allergies Allergy/AdvReac Type Severity Reaction Status Date / Time Penicillins AdvReac Anaphylaxis Verified 03/23/22 11:12 Tetracyclines AdvReac Anaphylaxis Verified 03/23/22 11:12 - Social History Does the pt smoke?: No Smoking Status: Never smoker PD ED PE NORMAL - Vitals Vital signs reviewed: Yes - General General: Alert and oriented X 3, Other (Intermittently having shakes or rigors during which she is conscious, alert, and able to control his extremities.) - HEENT HEENT: PERRL, EOMI - Neck Neck: Supple, no meningeal sign, No bony TTP - Cardiac Cardiac: RRR, No murmur - Respiratory Respiratory: No respiratory distress, Clear bilaterally - Abdomen Abdomen: Normal bowel sounds, Soft, Other (Focally tender in the right upper quadrant without guarding or rebound) - Back Back: No CVA TTP, No spinal TTP - Derm Derm: Normal color, Warm and dry - Extremities Extremities: No edema, No calf tenderness / cord - Neuro Neuro: Alert and oriented X 3, 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 No: ST elevation c/w ischemia Compare to prior EKG: Unchanged from prior EKG (No significant change from yesterday) Computer interpretation: Agree with computer - Labs Labs: Laboratory Tests 03/23/22 03/23/22 03/23/22 11:43 11:43 11:43 WBC 7.7 RBC 5.13 Hgb 15.1 Hct 47.4 MCV 92.4 MCH 29.4 MCHC 31.9 L RDW 13.5 Plt Count 149 MPV 9.8 Neut # (Auto) 5.6 Lymph # (Auto) 1.5 [place] # (Auto) 0.5 Eos # (Auto) 0.1 Baso # (Auto) 0.0 Absolute Nucleated RBC 0.00 Nucleated RBC % 0.0 Sodium 139 Potassium 4.0 Chloride 101 Carbon Dioxide 29 Anion Gap 9.0 BUN 22 H Creatinine 1.0 Estimated GFR (MDRD) 71 L Glucose 111 H Calcium 9.2 Total Bilirubin 0.9 AST 19 ALT 25 Alkaline Phosphatase 98 Troponin I High Sens 6.5 Total Protein 7.0 Albumin 3.9 Globulin 3.1 Albumin/Globulin Ratio 1.3 Lipase 35 PD Medical Decision Making - ED course ED course: 86-year-old gentleman with episodic chest pain, its been going on for at least 5 days and there is no exertional component to it. He is tender in the right upper quadrant. The also notes he has been may be having these problems as long as a few months. He was seen yesterday with a negative work-up and today's work-up is negative as well, this includes a right upper quadrant ultrasound which showed no evidence of biliary pathology. I agree with Dr. Ayoub's assessment from yesterday that probably the next step would be an upper endoscopy and he will try to see his doctor today as he was already scheduled to see Dr. Huber this afternoon. Departure - Departure Disposition: 01 Home, Self Care Clinical Impression: Abdominal pain, Chest pain Condition: Good Record reviewed to determine appropriate education?: Yes Instructions: ED Chest Pain Atypical Unkn Cause Comments: The cause of your symptoms is not clear. Still no evidence of active heart disease, we did an ultrasound of your gallbladder and it did not show gallstones or any other concerning findings. I would follow-up with Dr. Huber today as scheduled for consideration for GI referral. Return for new or worsening symptoms. Discharge Date/Time: 03/23/22 13:01
[2022-03-23 12:03] LABS: ALBUMIN 3.9 g/dL (3.2-5.5); ALBUMIN/GLOBULIN RATIO 1.3 (1.0-2.2); BILIRUBIN,TOTAL 0.9 mg/dL (0.2-1.0); CALCIUM 9.2 mg/dL (8.5-10.3)
[2022-03-23 13:02] VITALS: BP 165/101
--- NOTE | 2022-03-23 14:28 | Ultrasound Report ---
PROCEDURE: Abdomen Limited INDICATIONS: RUQ pain TECHNIQUE: Real-time scanning was performed of the abdominal and retroperitoneal organs, with image documentatio n. Shear-wave elastography measurements were preformed of the liver. COMPARISON: None CT of abdomen and pelvis dated 03/22/2022. FINDINGS: Liver: Liver is normal in size and homogeneous in echotexture. Gallbladder: There is no gallstone. No gallbladder wall thickening or pericholecystic fluid. No sonog raphic Irving's sign. Biliary ducts: Intrahepatic bile ducts are non-dilated. Extrahepatic bile duct caliber measures 5.3 mm. Normal is 6-7 mm or less in diameter, or 10 mm or less post-cholecystectomy. Kidneys: Right kidney measures 11.8 cm in length and 1.4 cm in renal cortical thickness. Multiple rig ht renal cysts are seen measures up to 1 x 0.9 x 0.9 cm in size. 9 x 4 x 6 mm calcification is noted in lower pole right kidney. No hydronephrosis or nephrolithiasis. No solid masses. Miscellaneous: No free abdominal fluid. IMPRESSION: 1. Normal-appearing liver and gallbladder. No biliary ductal dilatation. No discrete hepatic lesion i s seen on this study. 2. Pancreas is not well seen due to overlying bowel gas. 3. Right renal cysts as above. Nonobstructing stone in lower pole right kidney. No hydronephrosis. Reviewed by: Jean Conley MD on 03/23/2022 2:26 PM PST Approved by: Jean Conley MD on 03/23/2022 2:26 PM PST Station ID: [id number]
== END 2022-03-23 13:01 | disposition home or self-care (01) ==
LOC: ED 11:00
DX: R07.9 Chest pain, unspecified (principal); R10.11 Right upper quadrant pain; I10 Essential (primary) hypertension
CPT/HCPCS: 36415; 80053; 83690; 84484; 85025; 93005; 99284

== ENCOUNTER 2022-04-07 09:52 | Outpatient (CLI) | payer MEDICARE, OTHER ==
[~2022-04-07 09:52] MED LIST: GADOBUTROL 10 MMOL/10 ML VIAL ONE
[2022-04-07] MEDS ORDERED: GADOBUTROL 10 MMOL/10 ML VIAL IVP ONE (11:52)
--- NOTE | 2022-04-09 08:32 | MRI Report ---
PROCEDURE: BRAIN W/WO INDICATIONS: ALTERED MENTAL STATUS CONTRAST: GADAVIST 10.0 TECHNIQUE: Noncontrast axial T1 spin echo, axial T2 fast spin echo, sagittal and axial FLAIR, coronal T2 fast sp in echo, axial gradient echo, axial diffusion and ADC through the brain. After the administration of contrast, axial and coronal T1 spin echo with fat saturation through the brain. COMPARISON: CTA examination dated 03/06/2022 FINDINGS: Image quality: Excellent. CSF spaces: Basal cisterns are patent. No extra-axial fluid collections. Ventricles are normal in size and shape. Brain: No midline shift. No intracranial bleeds or masses. No abnormal intracranial enhancement. There is cerebral volume loss for age. There is periventricular white matter chronic small vessel is chemic change. The brainstem appears normal. Diffusion-weighted images demonstrate no acute ischemi c insults. No chronic ischemic insults. Normal intravascular flow voids are present. Skull and face: Calvarial marrow is normal in signal. Orbits appear normal. Sinuses: Sinuses and mastoids appear clear. IMPRESSION: 1. Volume loss and small vessel ischemic disease. 2. No acute process. No recent infarct. Reviewed by: Iam De Santiago MD on 04/09/2022 8:30 AM PST Approved by: Iam De Santiago MD on 04/09/2022 8:30 AM PST Station ID: [id number]
== END 2022-04-07 09:53 | disposition home or self-care (01) ==
LOC: DI 09:52
PROVIDERS: ATTEND Otolaryngology
DX: R41.82 Altered mental status, unspecified (principal); G31.89 Other specified degenerative diseases of nervous system; I67.82 Cerebral ischemia
CPT/HCPCS: 70553; A9585

== ENCOUNTER 2022-04-27 14:05 | Outpatient (CLI) | payer MEDICARE, OTHER ==
--- NOTE | 2022-04-27 16:44 | Ultrasound Report ---
PROCEDURE: Duplex Ext Veins Left INDICATIONS: LLE EDEMA TECHNIQUE: Real-time imaging, as well as color and pulse Doppler interrogation, were performed of the lower extr emity deep veins from the inguinal ligament to the popliteal fossa. COMPARISON: None. FINDINGS: The deep veins are normally compressible, and free of intraluminal thrombus. Color and pu lse Doppler demonstrate normal phasic intraluminal flow. There is normal augmentation response to di stal compression maneuver. Deep venous reflux was observed during the exam. IMPRESSION: No evidence of left lower extremity deep venous thrombosis. Reviewed by: Rosalio Up MD on 04/27/2022 4:43 PM PST Approved by: Rosalio Up MD on 04/27/2022 4:43 PM PST Station ID: [id number]
== END 2022-04-27 14:06 | disposition home or self-care (01) ==
LOC: DI 14:05
PROVIDERS: ATTEND Internal Medicine
DX: R60.0 Localized edema (principal)

== ENCOUNTER 2022-05-25 22:05 | Outpatient (CLI) | payer MEDICARE, OTHER ==
--- NOTE | 2022-05-27 13:08 | Ultrasound Report ---
PROCEDURE: Duplex Lwr Ext Arterial Bilat INDICATIONS: CLAUDICATION TECHNIQUE: Color and pulse Doppler interrogation was performed of both lower extremity arterial systems, with im age documentation. COMPARISON: Same day left lower extremity venous Doppler. CT abdomen pelvis 03/22/2022. FINDINGS: Right lower extremity: Common femoral artery: 80 cm/sec, with triphasic flow. Deep femoral artery: 56 cm/sec, with biphasic flow. Proximal superficial femoral artery: 95 cm/sec, with triphasic flow. Mid superficial femoral artery: 109 cm/sec, with triphasic flow. Distal superficial femoral artery: 118 cm/sec, with triphasic flow. Popliteal artery: 56 cm/sec, with triphasic flow. Posterior tibial artery: 18 cm/sec, with monophasic flow. Anterior tibial artery/dorsalis pedis: 94/96 cm/sec, with triphasic. flow. Maher-scale imaging description: Calcified plaque. Left lower extremity: Common femoral artery: 85 cm/sec, with triphasic flow. Deep femoral artery: 58 cm/sec, with biphasic flow. Proximal superficial femoral artery: 82 cm/sec, with triphasic flow. Mid superficial femoral artery: 98 cm/sec, with triphasic flow. Distal superficial femoral artery: 127 cm/sec, with triphasic flow. Popliteal artery: 60 cm/sec, with triphasic flow. Posterior tibial artery: 164 cm/sec, with triphasic flow. Anterior tibial artery/dorsalis pedis: 70/62 cm/sec, with triphasic flow. Maher-scale imaging description: Calcified plaque. IMPRESSION: 1. Marked diminutive flow in the right TALENT ACQUISITION ADMINISTRATOR. 2. Elevated peak systolic velocity in the left TALENT ACQUISITION ADMINISTRATOR. 50% or greater stenosis. Reviewed by: Campbell Abernathy MD on 05/27/2022 1:07 PM PDT Approved by: Campbell Abernathy MD on 05/27/2022 1:07 PM PDT Station ID: [id number]
== END 2022-05-25 22:06 | disposition home or self-care (01) ==
LOC: DI 22:05
PROVIDERS: ATTEND Internal Medicine
DX: I73.9 Peripheral vascular disease, unspecified (principal)
CPT/HCPCS: 93925

== ENCOUNTER 2022-05-28 14:08 | Outpatient (CLI) | payer MEDICARE, OTHER ==
[2022-05-29 22:03] VITALS: BP 132/76
--- NOTE | 2022-05-29 22:03 | SLEEP CARE CONSULTATION ---
Information from patient questionnaire entered by Aislinn Lucero. I have reviewed and concur with the information entered by Aislinn Lucero. This document represents the service I personally performed and the decisions made by me, Chyna Mcfadden MD, [facility]. History of Present Illness Service Date and Time: 05/28/2022 1408 Reason for Visit: New patient Chief Complaint: reports: Unrefreshed sleep, Snoring, Excessive daytime sleepiness, Fatigue Date of Onset: 18YR Usual bedtime: 9PM Time it takes to fall asleep: 15MIN Snores at night: Yes Observed to quit breathing while asleep: Yes Sleeps alone due to snoring: Yes Number of times waking at night: 3 Reasons for waking at night: reports: Snoring, Bathroom Toss, Turn, or Twitch while sleeping: Yes Recalls having dreams: Yes Usually gets out of bed at: 7AM Feels refreshed in the morning: No Morning headache: No Sleepy or fatigued during the day: Yes Ever fallen asleep while driving: No Takes day naps: Yes Dreams during day naps: No Prior sleep studies: Yes (2004) Additional HPI information: I had the pleasure of seeing Mr. Melton today regarding obstructive sleep apnea-hypopnea. As you know, he is an 86-year-old gentleman who was diagnosed with the sleep-disordered breathing at [facility] in [place] about 13 years ago (11/17/2009). The sleep study report showed an AHI of 21.8 and ben oxygen saturation of 85%. He has been using a CPAP regularly since. His current machine is a Combined Effort Respironics DreamStation 1 autoCPAP that was sent to him as a replacement to the recalled machine. The pressure on it is 4 20 cmH2O . He uses every night and all night. The compliance data show usage in 29 out of the past 30 nights, averaging 6.6 hours a night. The residual AHI is 2.8 and average air leak is 9 L/minute. He wears a ResMed N30i mask. He gets his supplies from [email or web address]. He finds the treatment very beneficial. He complains of restless leg syndrome when he wakes up during the night. He also reports leg kicks in his sleep. 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 Patient is and lives in [place]. Have you smoked in the past 12 months: No Years of smokin Quit date: 1981 Alcohol use: Yes Alcohol amount and frequency: 1BEER 2X AWEEK Caffeine use: Yes Caffeine amount and frequency: 1CUP DAILY Family History Family history of sleep disordered breathing: No Allergies and Home Medications Known drug allergies: Yes (PENCILLIN) Drug allergies reviewed: Yes Home medication list reviewed: Yes Allergy and home medication list: Allergies Penicillins Adverse Reaction (Verified 03/23/22 11:12) Anaphylaxis Tetracyclines Adverse Reaction (Verified 03/23/22 11:12) Anaphylaxis Review of Systems Weight gain over past 5 years: 10 Cardiovascular: reports: high blood pressure, leg or foot swelling Respiratory: denies: shortness of breath, wheeze, sputum production, chronic cough, other Gastrointestinal: denies: heartburn, difficulty swallowing, nausea, vomitting, diarrhea, abdominal pain, other Urinary: reports: frequency Neurological: reports: gait or balance problems Psychiatric: denies: Attention Deficit Hyperactivity, anxiety, depression, mood disorder, claustrophobia, other Ear/Nose/Throat: reports: tonsillectomy, wisdom teeth removed Endocrine: reports: sluggishness, too hot or cold Musculoskeletal: reports: joint pain, neck pain, back pain, joint swelling, muscle pain or cramping, mobility problems Immunologic: denies: sneezing, rash, itching, allergies to food or environment, other Physical Exam Vital signs obtained and entered by: AISLINN Cristobal MA Blood Pressure: 132/76 (LEFT ARM) Cuff size: regular Heart Rate: 70 O2 Saturation: 97 Height: 6 ft Weight: 224 lb 12.8 oz Body Mass Index: 30.4 BMI Classification: Obese Neck circumference: 18.25 Mood/affect: normal HEENT: No craniofacial malformation Nostrils: patent to airflow Turbinates: normal Septum: midline Mouth and throat: narrow oropharynx Soft palate: long Hard palate: normal Uvula: normal Uvula visualization: 50% Mallampati Class II Tongue: normal in size Tonsils: absent bilaterally Chin and jaw: normal size and position Neck: normal w/o lymphadenopathy or thyromegaly Heart: regular rate and rhythm Lungs: clear bilaterally Extremities: 2+ edema Neurologic: intact Impression and Plan IMPRESSION: 1. Obstructive Sleep Apnea-Hypopnea Syndrome, moderate, as previously diagnosed in 2010. The patient has good CPAP compliance. The current pressure setting appears effective and comfortable. His mask fits well. No adjustment is necessary today. 2. Restless leg syndrome, bothersome to him at night. The cause of periodic leg movement of sleep is typically unknown. Few known causes are iron deficiency, renal failure, and selective serotonin reuptake inhibitors. Iron and ferritin levels are recommended in addition to the routine blood work. Plan: 1. Prescription made for new supplies through [email or web address]. 2. Try to lose weight. 3. Primary care provider to check iron and ferritin levels. 4. Return for follow up in a year or earlier if there is any problem. Counseling Topics: Weight control Prescriptions: Device supplies Follow up with Sleep Care in: 1 year Follow up with: PCP Visit Type: In Office Time Spent with Patient (minutes): 15 Provider Statement: I spent 100% of the Face to Face Visit with the patient with greater than 50% spent counseling the patient and coordination of care.
== END 2022-05-28 14:09 | disposition home or self-care (01) ==
LOC: SC 14:08
PROVIDERS: ATTEND Internal Medicine Pulmonary Disease
DX: G47.33 Obstructive sleep apnea (adult) (pediatric) (principal); G25.81 Restless legs syndrome; Z87.891 Personal history of nicotine dependence
CPT/HCPCS: 99202; G0463; 99212

== ENCOUNTER 2022-08-21 10:23 | Outpatient (CLI) | payer MEDICARE, OTHER ==
--- NOTE | 2022-08-21 14:06 | XRAY Report ---
PROCEDURE: Knee 3 View RT INDICATIONS: DJD KNEE TECHNIQUE: 3 views of the right knee(s) were acquired. COMPARISON: None. FINDINGS: Bones: No fractures or dislocations. Moderate to severe tricompartmental osseous arthritis is seen m ore notably in medial femoral tibial compartment and lateral portion of patellofemoral compartment wi th near complete loss of joint space, extensive subchondral sclerosis and marginal osteophyte formati on. Slight lateral subluxation of the lazy. No suspicious bony lesions. Soft tissues: Moderate knee joint effusion. No suspicious soft tissue calcifications or masses. IMPRESSION: No acute bony abnormality. Moderate to severe tricompartmental osteoarthritis as above. Moderate join t effusion. Reviewed by: Jean Conley MD on 08/21/2022 2:04 PM PDT Approved by: Jean Conley MD on 08/21/2022 2:04 PM PDT Station ID: [id number]
== END 2022-08-21 10:24 | disposition home or self-care (01) ==
LOC: DI 10:23
PROVIDERS: ATTEND Physical Medicine & Rehabilitation
DX: M17.11 Unilateral primary osteoarthritis, right knee (principal); M25.461 Effusion, right knee

== ENCOUNTER 2022-12-12 13:14 | Outpatient (CLI) | payer MEDICARE, OTHER ==
--- NOTE | 2022-12-12 21:30 | XRAY Report ---
PROCEDURE: Hip w/Pelvis 2-3V LT INDICATIONS: BURSITIS TECHNIQUE: AP pelvis with lateral view(s) of the left hip(s). COMPARISON: None. FINDINGS: Bones: No fractures or dislocations. Moderate joint space narrowing of both hips. Soft tissues: No suspicious soft tissue calcifications. Surgical clips project over the pelvis. IMPRESSION: No acute bony abnormality. If there remains a high clinical concern for fracture, consider cross-sect ional imaging now. If pain persists, consider repeat x-ray in 10-14 days or cross-sectional imaging. Degenerative changes of both hips. Reviewed by: Rosalio Up MD on 12/12/2022 9:29 PM PDT Approved by: Rosalio Up MD on 12/12/2022 9:29 PM PDT Station ID: [id number]
== END 2022-12-12 13:15 | disposition home or self-care (01) ==
LOC: DI 13:14
PROVIDERS: ATTEND Internal Medicine
DX: M70.62 Trochanteric bursitis, left hip (principal); M16.0 Bilateral primary osteoarthritis of hip

== ENCOUNTER 2023-02-26 18:25 | Outpatient (CLI) | payer MEDICARE, OTHER ==
--- NOTE | 2023-02-26 19:56 | Ultrasound Report ---
PROCEDURE: Duplex Ext Veins Left INDICATIONS: LEFT LEG PAIN TECHNIQUE: Real-time imaging, as well as color and pulse Doppler interrogation, were performed of the lower extr emity deep veins from the inguinal ligament to the popliteal fossa. Attempted visualization of the ca lf veins was performed. COMPARISON: None. FINDINGS: There is a filling defect of the popliteal vein, which is noncompressible. Otherwise, the r emaining deep veins are normally compressible, and free of intraluminal thrombus. Color and pulse Do ppler demonstrate normal phasic intraluminal flow. There is normal augmentation response to distal c ompression maneuver. IMPRESSION: Deep venous thrombosis of the left popliteal vein. Above discussed with Dr. Herrera at the time of dictation. Reviewed by: Matias Irene MD on 02/26/2023 7:55 PM [facility] Approved by: Matias Irene MD on 02/26/2023 7:55 PM [facility] Station ID: [id number]
--- NOTE | 2023-02-27 08:32 | Ultrasound Report ---
PROCEDURE: Duplex Lwr Ext Arterial LT INDICATIONS: LEFT LEG PAIN TECHNIQUE: Color and pulse Doppler interrogation was performed of the left lower extremity arterial system, with image documentation. COMPARISON: Bilateral arterial duplex dated 05/25/2022 FINDINGS: Common femoral artery: 86.3 cm/sec, with triphasic flow. Deep femoral artery: 76.4 cm/sec, with triphasic flow. Proximal superficial femoral artery: 120 cm/sec, with triphasic flow. Mid superficial femoral artery: 100.5 cm/sec, with triphasic flow. Distal superficial femoral artery: 125.5 cm/sec, with triphasic flow. Popliteal artery: 81.8 cm/sec, with triphasic flow. Posterior tibial artery: 130.5 cm/sec, with triphasic flow. Anterior tibial artery/dorsalis pedis: 63.8 cm/sec, with triphasic flow. Maher-scale imaging description: No focal hemodynamically significant stenosis. IMPRESSION: Triphasic waveforms throughout. Slightly elevated velocities in the posterior tibial artery may be as sociated with a less than 50% stenosis. No other findings to suggest a hemodynamically significant st enosis. Reviewed by: Amanda Hardin MD on 02/27/2023 8:30 AM PST Approved by: Amanda Hardin MD on 02/27/2023 8:30 AM PST Station ID: [id number]
== END 2023-02-26 18:26 | disposition home or self-care (01) ==
LOC: DI 18:25
PROVIDERS: ATTEND Student in an Organized Health Care Education/Training Program
DX: I82.432 Acute embolism and thrombosis of left popliteal vein (principal)

== ENCOUNTER 2023-02-26 19:35 | Emergency (ER) | payer MEDICARE, OTHER ==
[2023-02-26 19:51] VITALS: O2SAT 96
--- NOTE | 2023-02-26 20:09 | ED Physician Documentation ---
History of Present Illness - Stated complaint Stated Complaint: L LEG PAIN - Chief complaint Chief Complaint: Ext Problem - History obtained from History obtained from: Patient - Additonal information Additional information: HPI from patient. Patient c/o LLE pain x 3 weeks, gradual onset without injury or other apparent inciting event. No exacerbating nor ameliorating factors. Also notes LLE swellin g but this has been present for "years" (per patient) and is not noticeably changed. He contacted his PCP and a LLE doppler US was undertaken tonight, demonstrating LLE popliteal DVT and thus patient checks in to ED Review of Systems Cardiac: reports: Pedal edema. denies: Chest pain / pressure Respiratory: denies: Dyspnea PD PAST MEDICAL HISTORY - Past Medical History Cardiovascular: Hypertension - Past Surgical History Past Surgical History: Yes - Present Medications Home Medications: Ambulatory Orders Medication Instructions Recorded Confirmed Aspirin See Rx Instructions .ROUTE .COMPLEX 06/07/18 05/28/22 Furosemide [Lasix] See Rx Instructions .ROUTE .COMPLEX 06/07/18 05/28/22 Oxycodone HCl/Acetaminophen 1 - 2 each PO Q6H PRN #14 tablet 06/07/18 05/28/22 [Percocet 5-325 mg Tablet] Ropinirole HCl See Rx Instructions .ROUTE .COMPLEX 06/07/18 05/28/22 Simvastatin See Rx Instructions .ROUTE .COMPLEX 06/07/18 05/28/22 Tamsulosin [Flomax] 0.4 mg PO DAILY #10 capsule 06/07/18 05/28/22 lisinopriL [Lisinopril] See Rx Instructions .ROUTE .COMPLEX 06/07/18 05/28/22 Omeprazole Magnesium 20 mg PO DAILY #30 tab 03/22/22 05/28/22 Apixaban [Eliquis] 5 mg PO BID 21 Days #42 tablet 02/26/23 Apixaban [Eliquis] 10 mg PO BID 7 Days #28 tablet 02/26/23 - Allergies Allergies/Adverse Reactions: Allergies Allergy/AdvReac Type Severity Reaction Status Date / Time Penicillins AdvReac Anaphylaxis Verified 02/26/23 19:44 Tetracyclines AdvReac Anaphylaxis Verified 02/26/23 19:44 - Social History Does the pt smoke?: No Smoking Status: Never smoker PD ED PE NORMAL - Vitals Vital signs reviewed: Yes - General General: Alert and oriented X 3, No acute distress, Well developed/nourished PD ED PE EXPANDED - Extremities Extremities: Pedal edema L (pitting edema distal to left knee), Pedal Pulses Present, Other (LLE without discoloration (no erythema, no cyanosis)) Results - Vitals Vitals: Oxygen O2 Source Room air PD Medical Decision Making - ED course Complexity details: considered differential, d/w patient ED course: We discussed options for treatment of LLE DVT. We discussed risks/benefits of treatment (with DOAC). I recommend DOAC and he is agreeable to this. He is given 10mg apixiban PO and prescriptions for apixaban (10mg BID x 1 week followed by 5mg BID) electronically submitted to [facility] pharmacy in [place]. I instructed him to follow up with PCP, as he will likely need a longer course of DOAC (I have written for one month supply). Return precautions reviewed Departure - Departure Disposition: 01 Home, Self Care Clinical Impression: Deep venous thrombosis Qualifiers: DVT location: lower extremity Affected thrombotic vein of extremity: popliteal Chronicity: acute Laterality: left Qualified Code(s): I82.432 - Acute embolism and thrombosis of left popliteal vein Condition: Good Instructions: Apixaban oral tablets, ED DVT Follow-Up: Tyson Huber MD [Primary Care Provider] - Prescriptions: Apixaban [Eliquis] 10 mg PO BID 7 Days #28 tablet Apixaban [Eliquis] 5 mg PO BID 21 Days #42 tablet Comments: The ultrasound of your left leg shows a blood clot in one of the large, deep veins of the leg. You were given the first dose of a blood-thinning agent (apixaban) in the emergency department and I have electronically submitted a prescription for a 1 month course of this medication to the [facility] pharmacy in [place]. You will need a longer course than just the 1 month, and thus you need to follow-up with your primary care provider within that time frame for reevaluation and prescription of more of this medication. Note that the dose of the medication is higher for the first week and then is half of the first week. I have sent two different dosing regimens for the medication to [facility] pharmacy in [place]. TAKE THE 10 MG DOSE TWICE PER DAY FOR THE FIRST WEEK, THEN YOU WILL TAKE THE 5 MG DOSE TWICE PER DAY. Forms: PCP List Discharge Date/Time: 12/19/23 20:47
[2023-02-26] MEDS ORDERED: APIXABAN 5 MG TABLET PO STA (20:26)
[2023-02-26 20:47] VITALS: BP 152/73
== END 2023-02-26 20:47 | disposition home or self-care (01) ==
LOC: ED 19:35
DX: I82.432 Acute embolism and thrombosis of left popliteal vein (principal)
CPT/HCPCS: 93926; 93971; 99282; 99283; A9270

== ENCOUNTER 2023-05-22 12:01 | Outpatient (CLI) | payer MEDICARE, OTHER ==
--- NOTE | 2023-05-22 13:00 | XRAY Report ---
PROCEDURE: Shoulder 2+V RT INDICATIONS: PAIN IN RIGHT SHOULDER TECHNIQUE: 3 views of the shoulder were acquired. COMPARISON: None. FINDINGS: Bones: No fractures or dislocations. No suspicious bony lesions. Visualized ribs appear intact. Ac romioclavicular joint space narrowing with osteophytosis. Calcification projecting over the greater t uberosity. Soft tissues: No suspicious soft tissue calcifications. The visualized lungs are within normal limi ts. IMPRESSION: Moderate acromioclavicular osteoarthritis. Calcification projecting of the greater tuberosity, either supraspinatus calcific tendinopathy or dys trophic ossification. Reviewed by: Matias Irene MD on 05/22/2023 12:58 PM PDT Approved by: Matias Irene MD on 05/22/2023 12:58 PM PDT Station ID: [id number]
== END 2023-05-22 12:02 | disposition home or self-care (01) ==
LOC: DI 12:01
PROVIDERS: ATTEND Physical Medicine & Rehabilitation
DX: M19.011 Primary osteoarthritis, right shoulder (principal); M25.811 Other specified joint disorders, right shoulder

== ENCOUNTER 2023-06-17 13:53 | Emergency (ER) | payer MEDICARE, OTHER ==
--- NOTE | 2023-06-17 14:17 | ED Physician Documentation ---
PD HPI CHEST PAIN - Stated complaint Stated Complaint: CHEST PX,FEVER - Chief complaint Chief Complaint: Cardiac - History obtained from History obtained from: Patient - Additional information Additional information: This is an 87-year-old gentleman who presents with his for the evaluation of respiratory symptoms and more recently chest pain. He and his both got sick about a week ago with cough, body aches, chills. They took a home COVID test and it was negative. Frankly not too worried about that thinking it is just a viral syndrome. His physician started him on prednisone a couple days ago for the symptoms. Last 2 days he has had intermittent very sharp fleeting left sternal pain. He notes no trigger to it. It is often just starting at rest in the last seconds. There is no radiation to it. When queried if he is short of breath with it he says "probably." Denies pedal edema or calf pain. He has had fevers up until yesterday, not today. PD PAST MEDICAL HISTORY - Past Medical History Cardiovascular: Hypertension - Past Surgical History Past Surgical History: Yes - Present Medications Home Medications: Ambulatory Orders Medication Instructions Recorded Confirmed Omeprazole Magnesium 20 mg PO DAILY #30 tab 03/22/22 06/17/23 Amlodipine Besylate [Norvasc] 2 tab PO DAILY 06/17/23 06/17/23 Atorvastatin Calcium [Lipitor] 1 tab PO DAILY 06/17/23 06/17/23 Cholecalciferol (Vitamin D3) 1 tab PO DAILY 06/17/23 06/17/23 [Vitamin D3] Clobetasol 0.05% Oint [Temovate 1 applic TOP DAILY 06/17/23 06/17/23 0.05% Oint] Cyanocobalamin (Vitamin B-12) 1 cap PO DAILY 06/17/23 06/17/23 [Vitamin B-12] Docusate Sodium 100Mg Capsule 1 cap PO PRN PRN 06/17/23 06/17/23 [Colace 100Mg Capsule] Ferrous Bis-Glycinate Chelate 1 cap PO DAILY 06/17/23 06/17/23 [Iron Glycinate] HYDROcodone/ACET 7.5/325 [[place] 1 tab PO PRN PRN 06/17/23 06/17/23 7.5/325] Lisinopril [Zestril] 1 tab PO DAILY 06/17/23 06/17/23 Rivaroxaban [Xarelto] 1 tab PO DAILY 06/17/23 06/17/23 Ropinirole HCl 1 tab PO DAILY 06/17/23 06/17/23 predniSONE [Prednisone] 1 tab PO DAILY 06/17/23 06/17/23 - Allergies Allergies/Adverse Reactions: Allergies Allergy/AdvReac Type Severity Reaction Status Date / Time Penicillins AdvReac Anaphylaxis Verified 06/17/23 14:02 Tetracyclines AdvReac Anaphylaxis Verified 06/17/23 14:02 - Social History Does the pt smoke?: No Smoking Status: Never smoker PD ED PE NORMAL - Vitals Vital signs reviewed: Yes - General General: Alert and oriented X 3, No acute distress, Other (Well-appearing nontoxic but hard of hearing) - Cardiac Cardiac: RRR, No murmur - Respiratory Respiratory: No respiratory distress, Clear bilaterally - Abdomen Abdomen: Non tender - Derm Derm: Normal color, Warm and dry - Extremities Extremities: No edema, No calf tenderness / cord - Neuro Neuro: Alert and oriented X 3 Results - Vitals Vitals: Vital Signs - 24 hr 06/17/23 06/17/23 06/17/23 13:57 14:32 14:36 Temperature 36.4 C L Heart Rate 87 75 Respiratory 16 33 H Rate Blood Pressure 189/82 H 173/82 H Blood Pressure 173/82 H [Right] O2 Saturation 95 94 06/17/23 15:02 Temperature Heart Rate 71 Respiratory 24 Rate Blood Pressure 170/71 H Blood Pressure [Right] O2 Saturation 98 Oxygen O2 Source Room air - EKG (time done) 1410 EKG releavant findings:: EKG personally interpreted by author of this note. Relevant findings are: Rate: Rate (enter#) (79) Rhythm: NSR [place]: Normal Intervals: Normal [place] QRS: Normal Ischemia: Normal ST segments - Labs Labs: Laboratory Tests 06/17/23 06/17/23 06/17/23 14:25 14:25 14:25 WBC 7.6 RBC 5.27 Hgb 15.4 Hct 46.3 MCV 87.9 MCH 29.2 MCHC 33.3 RDW 13.0 Plt Count 242 MPV 9.2 Neut # (Auto) 6.1 Lymph # (Auto) 1.0 L [place] # (Auto) 0.3 Eos # (Auto) 0.0 Baso # (Auto) 0.0 Absolute Nucleated RBC 0.00 Nucleated RBC % 0.0 Sodium 128 L Potassium 4.1 Chloride 94 L Carbon Dioxide 27 Anion Gap 7.0 BUN 24 H Creatinine 0.9 Estimated GFR (MDRD) 79 L Glucose 144 H Calcium 9.2 Total Bilirubin 0.8 AST 14 ALT 18 Alkaline Phosphatase 95 Total Creatine Kinase 45 Troponin I High Sens 8.3 Total Protein 6.5 Albumin 4.1 Globulin 2.4 Albumin/Globulin Ratio 1.7 - Rads (name of study) Single view chest x-ray is unremarkable Relevant Findings:: Final report received, EMP independent interpretation of test PD Medical Decision Making - ED course ED course: 87-year-old gentleman who has a viral syndrome for a week with negative COVID testing at home now with resolved chest pain today that sounds noncardiac. EKG and troponin were negative as was his chest x-ray. Otherwise his lab work shows a mild lymphopenia on CBC, likely related to viral syndrome, and a CMP most notable for low sodium at 128 which is new compared to prior labs. TSH pending on discharge and I will call them if it is significantly abnormal. Departure - Departure Disposition: Home, Self Care Clinical Impression: Viral syndrome Chest pain Qualifiers: Chest pain type: unspecified Qualified Code(s): R07.9 - Chest pain, unspecified Condition: Good Record reviewed to determine appropriate education?: Yes Instructions: ED Chest Pain NonCardiac Comments: The only abnormal diagnostic finding to note today was your sodium level was down a bit at 128. I suspect this is because you are sick and drinking plenty of fluids but probably not quite as much salt as you are used to so try to mix up your fluid intake with some Gatorade or chicken broth which do have some salt in them. Your blood pressure is elevated today, this could be because you are sick or because you are on the steroid. Have it rechecked in a week after you finish the steroids. Call your doctor to arrange a follow-up appointment, make the next available appointment. In the interim, return anytime if worse or if new symptoms develop. Forms: PCP List
[2023-06-17 14:40] LABS: BASOPHILS % (AUTO) 0.3 %; HCT - HEMATOCRIT 46.3 % (42.0-52.0); HGB - HEMOGLOBIN 15.4 g/dL (14.0-18.0); LYMPHOCYTES % (AUTO) 13.8 %; MEAN CORPUSCULAR HEMOGLOBIN 29.2 pg (27.0-31.0); MEAN CORPUSCULAR HGB CONC 33.3 g/dL (32.0-36.0); MEAN CORPUSCULAR VOLUME 87.9 fL (80.0-94.0); MEAN PLATELET VOLUME 9.2 fL (7.4-11.4); MONOCYTES # (AUTO) 0.3 10^3/uL (0.0-1.0); NEUTROPHILS # (AUTO) 6.1 10^3/uL (1.5-6.6); NEUTROPHILS % (AUTO) 80.8 %; PLT - PLATELET COUNT 242 10^3/uL (130-450); RED BLOOD COUNT 5.27 10^6/uL (4.70-6.10); WHITE BLOOD COUNT 7.6 x10^3/uL (4.8-10.8)
--- NOTE | 2023-06-17 14:46 | XRAY Report ---
PROCEDURE: Chest 1V INDICATIONS: cough TECHNIQUE: One view of the chest was acquired. COMPARISON: Chest x-ray 03/22/2022 FINDINGS: Surgical changes and devices: None. Lungs and pleura: No pleural effusions or pneumothorax. Lungs are clear. Mediastinum: Mediastinal contours appear normal. Heart size is enlarged. Bones and chest wall: No suspicious bony lesions. Overlying soft tissues appear unremarkable. IMPRESSION: No acute cardiopulmonary process. Reviewed by: Luz Newman MD on 06/17/2023 2:45 PM PDT Approved by: Luz Newman MD on 06/17/2023 2:45 PM PDT Station ID: [id number]
[2023-06-17 14:55] LABS: ALBUMIN 4.1 g/dL (3.2-5.5); ALBUMIN/GLOBULIN RATIO 1.7 (1.0-2.2); BILIRUBIN,TOTAL 0.8 mg/dL (0.2-1.0); CALCIUM 9.2 mg/dL (8.5-10.3); CREATININE 0.9 mg/dL (0.6-1.3); POTASSIUM 4.1 mmol/L (3.5-4.5); TOTAL PROTEIN 6.5 g/dL (6.4-8.9)
[2023-06-17 15:54] LABS: THYROID STIMULATING HORMONE 0.45 uIU/mL (0.34-5.60)
[2023-06-17 16:10] VITALS: BP 157/92; O2SAT 96
== END 2023-06-17 16:06 | disposition home or self-care (01) ==
LOC: ED 13:53
DX: B34.9 Viral infection, unspecified (principal); R07.9 Chest pain, unspecified; I10 Essential (primary) hypertension; Z79.899 Other long term (current) drug therapy
CPT/HCPCS: 36415; 80053; 82550; 84443; 84484; 85025; 93005; 99284

== ENCOUNTER 2023-06-24 10:56 | Outpatient (CLI) | payer MEDICARE, OTHER ==
--- NOTE | 2023-06-24 12:13 | SLEEP CARE CONSULTATION ---
Information from patient questionnaire entered by Aislinn Lucero. I have reviewed and concur with the information entered by Aislinn Lucero. This document represents the service I personally performed and the decisions made by me, Chyna Mcfadden MD, [facility]. History of Present Illness Service Date and Time: 06/24/2023 1056 Reason for follow up: annual (LAST SEEN 05/2022) Equipment type: CPAP (RESMED) Prior sleep studies: Yes (2004) HPI additional information: Mr. Montelongo was diagnosed with moderate obstructive sleep apnea-hypopnea syndrome and returns today with his for follow up of CPAP therapy. The patient purchased the device from [employer] and was fitted with a nasal mask. He uses the device nightly and all through the night. The compliance report shows that he uses the [employer] DreamStation autoCPAP 332 nights out of the past 365 nights, averaging 5.3 hours a night. The > 4 hour compliance rate for the past 30 days is 63%. He complains of no particular problem with the device such as soreness on the face, dry nose, epistaxis, nasal congestion or headache. He thinks that the pressure of 7 - 20 cmH2O is comfortable. On the CPAP therapy he notices improvement in his sleep quality, and that he wakes up feeling fresher in the morning and more awake/alert during the day. His notices no snore at all. [place] Sleepiness Scale score is 8. The average residual AHI is 5.3; and average time in large leak per day is 30 minutes a night. The 90th percentile pressure is 7.1 cmH2O. Sleep Study - Results Prior sleep studies: Yes (2004) Subjective Initial [place] Sleepiness Scale score: 7 (05/25/22) Allergies and Home Medications Drug allergies reviewed: Yes Home medication list reviewed: Yes Allergy and home medication list: Allergies Penicillins Adverse Reaction (Verified 06/20/23 14:07) Anaphylaxis Tetracyclines Adverse Reaction (Verified 06/20/23 14:07) Anaphylaxis Review of Systems Review of systems same as previous: Yes Physical Exam Vital signs obtained and entered by: AISLINN Cristobal MA Blood Pressure: 141/72 (LEFT ARM) Cuff size: regular Heart Rate: 80 O2 Saturation: 94 Height: 6 ft Weight: 210 lb 3.2 oz Body Mass Index: 28.5 BMI Classification: Overweight Impression and Plan IMPRESSION: 1. Obstructive Sleep Apnea-Hypopnea Syndrome, moderate (AHI was 21.8 in 2010 at [facility]) with the patient continuing to do well on nasal CPAP therapy. He has decent compliance and significant clinical benefits. The current pressure appears effective and comfortable. Overall, he is very satisfied with treatment and plans to continue with it long-term. Because the residual AHI is slightly high, I will raise the pressure a little. PLAN: 1. AutoCPAP raised to 8 20 cm H2O. 2. Try to lose weight 3. Return in one year for follow up or earlier if there is any problem with the treatment. Adjust device pressure to (cmH2O): 8 - 20 Counseling Topics: Weight control Follow up with Sleep Care in: 1 year Follow up recommended for: Weight management Visit Type: In Office Time Spent with Patient (minutes): 15 Provider Statement: I spent 100% of the Face to Face Visit with the patient with greater than 50% spent counseling the patient and coordination of care.
[2023-06-24 12:20] VITALS: BP 141/72; O2SAT 94
== END 2023-06-24 10:57 | disposition home or self-care (01) ==
LOC: SC 10:56
PROVIDERS: ATTEND Internal Medicine Pulmonary Disease
DX: G47.33 Obstructive sleep apnea (adult) (pediatric) (principal)
CPT/HCPCS: 99212; G0463

== ENCOUNTER 2023-06-27 16:30 | Outpatient (CLI) | payer MEDICARE, OTHER ==
--- NOTE | 2023-06-28 16:46 | Ultrasound Report ---
PROCEDURE: Duplex Ext Veins Left INDICATIONS: DVT TECHNIQUE: Real-time imaging, as well as color and pulse Doppler interrogation, were performed of the lower extr emity deep veins from the inguinal ligament to the popliteal fossa. Attempted visualization of the ca lf veins was performed. COMPARISON: None. FINDINGS: The deep veins are normally compressible, and free of intraluminal thrombus. Color and pu lse Doppler demonstrate normal phasic intraluminal flow. There is normal augmentation response to di stal compression maneuver. Gaines's cyst is present measuring 1.9 x 1.5 x 2.4 cm. IMPRESSION: No deep venous thrombosis of the visualized lower extremity. 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 Reviewed by: Luz Newman MD on 06/28/2023 4:45 PM PDT Approved by: Luz Newman MD on 06/28/2023 4:45 PM PDT Station ID: [id number]
== END 2023-06-27 16:31 | disposition home or self-care (01) ==
LOC: DI 16:30
PROVIDERS: ATTEND Internal Medicine
DX: I82.90 Acute embolism and thrombosis of unspecified vein (principal); M71.22 Synovial cyst of popliteal space [Baker], left knee

== ENCOUNTER 2023-07-05 08:00 | Outpatient (CLI) | payer MEDICARE, OTHER ==
--- NOTE | 2023-07-05 17:34 | XRAY Report ---
PROCEDURE: Chest 2V INDICATIONS: COUGH TECHNIQUE: 2 views of the chest were acquired. COMPARISON: Chest radiograph on June 17, 2023. FINDINGS: Surgical changes and devices: None. Lungs and pleura: No pleural effusions or pneumothorax. Mild bilateral perihilar bronchial wall thic kening, best seen on lateral view. No focal pulmonary consolidation. Mediastinum: Mediastinal contours appear normal. Heart size is normal. 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 No suspicious bony le sions. Overlying soft tissues appear unremarkable. IMPRESSION: 1.Mild bilateral perihilar bronchial wall thickening, best seen on lateral view, suggestive of reacti ve airways disease and/or viral pneumonia. No focal pulmonary consolidation. 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 Reviewed by: Sadaf Guzmán MD on 07/05/2023 5:32 PM PDT Approved by: Sadaf Guzmán MD on 07/05/2023 5:32 PM PDT Station ID: [id number]
== END 2023-07-05 23:59 | disposition home or self-care (01) ==
LOC: DI.S 08:00
PROVIDERS: ATTEND Emergency Medicine
DX: R91.8 Other nonspecific abnormal finding of lung field (principal); M43.24 Fusion of spine, thoracic region

== ENCOUNTER 2023-07-05 16:23 | Outpatient (CLI) | payer MEDICARE, OTHER | END 2023-07-05 16:24 | disposition home or self-care (01) | LOC: LAB 16:23 | PROVIDERS: ATTEND Emergency Medicine | DX: R06.00 Dyspnea, unspecified (principal) | CPT/HCPCS: 36415; 83880; 85379 ==

== ENCOUNTER 2023-08-02 07:00 | Outpatient (CLI) | payer MEDICARE, OTHER ==
--- NOTE | 2023-08-02 20:06 | XRAY Report ---
PROCEDURE: Knee 4+V LT INDICATIONS: LEFT KNEE OSTEOARTHRITIS TECHNIQUE: 4 views of the knee were acquired. COMPARISON: None. FINDINGS: Bones: No acute fractures or dislocations. No suspicious bony lesions. Severe joint space narrowi ng is seen at the patellofemoral compartment. Mild joint space narrowing seen at the medial femorotib ial compartment. Soft tissues: No significant left knee joint effusion. No suspicious soft tissue calcifications. IMPRESSION: Severe left patellofemoral osteoarthrosis. Reviewed by: Rosalio Calderon MD on 08/02/2023 8:05 PM PDT Approved by: Rosalio Calderon MD on 08/02/2023 8:05 PM PDT Station ID: [id number]
== END 2023-08-02 23:59 | disposition home or self-care (01) ==
LOC: DI.S 07:00
PROVIDERS: ATTEND Emergency Medicine
DX: M17.12 Unilateral primary osteoarthritis, left knee (principal)